=== PATIENT | male | born 1970 | race Caucasian/White ===

== ENCOUNTER 2016-03-16 07:47 | Emergency (ER) | payer BC ==
[2016-03-16] MEDS ORDERED: SODIUM CHLORIDE 0.9% 1,000 ML IV STA (08:20)
[2016-03-16] MEDS ORDERED: ONDANSETRON 4 MG/2 ML VIAL IVP STA (08:20)
[2016-03-16] MEDS ORDERED: HYDROmorphone 1 MG/ML 1 ML SYRINGE IVP STA ×3 (08:20→10:40)
--- NOTE | 2016-03-16 08:25 | ED ---
General Adult HPI - General Chief complaint: Abdominal Pain Stated complaint: kidney stone Time Seen by Provider: 03/16/16 08:18 Source: patient, RN notes reviewed Mode of arrival: ambulatory Limitations: no limitations - History of Present Illness Initial comments: Patient 45-year-old male with significant past mental history for kidney stone, who presents emergency room today with a chief complaint of increased right- sided flank pain that began approximately 3 AM. Patient does admit that symptoms are consistent with kidney stones that is had in the past. Patient does admit to some dysuria type symptoms. He denies any other complaints associated symptoms. Patient denies any recent fever, chills, shortness of breath, chest pain, back pain, numbness or tingling, constipation or diarrhea, headaches or visual changes, or any other complaints. - Related Data Home Medications Medication Instructions Recorded Confirmed Levothyroxine Sodium [Synthroid] 224 mcg PO DAILY 10/07/13 03/16/16 Losartan/Hydrochlorothiazide 1 tab PO DAILY 10/07/13 03/16/16 [Losartan-Hctz 100-12.5 mg Tab] Amoxic-Pot Clav 875-125Mg 1 tab PO Q12HR 03/16/16 03/16/16 [Augmentin 875-125] Hydrocodone/Acetaminophen [[place] 1 tab PO BID PRN 03/16/16 03/16/16 5-325] Previous Rx's Medication Instructions Recorded Hydrocodone/Acetaminophen [[place] 1 each PO Q6HR PRN #20 tab 03/16/16 5-325] Ondansetron Odt [Zofran ODT] 4 mg PO Q8HR PRN #15 tab 03/16/16 Tamsulosin [Flomax] 0.4 mg PO DAILY #3 cap 03/16/16 Allergies Allergy/AdvReac Type Severity Reaction Status Date / Time No Known Allergies Allergy Verified 03/16/16 08:36 Review of Systems ROS Statement: Those systems with pertinent positive or pertinent negative responses have been documented in the HPI. ROS Other: All systems not noted in ROS Statement are negative. Past Medical History Past Medical History: Hypertension, Thyroid Disorder Additional Past Medical History / Comment(s): kidney stones History of Any Multi-Drug Resistant Organisms: None Reported Past Surgical History: Appendectomy Additional Past Surgical History / Comment(s): cyst removal. spur off left foot Past Psychological History: No Psychological Hx Reported Smoking Status: Never smoker Past Alcohol Use History: Occasional Past Drug Use History: None Reported General Exam - General Exam Comments Initial Comments: General: The patient is awake and alert, mild distress. Eye: Pupils are equal, round and reactive to light, extra-ocular movements are intact. No nystagmus. There is normal conjunctiva bilaterally. No signs of icterus. Ears, nose, mouth and throat: There are moist mucous membranes and no oral lesions. Neck: The neck is supple, there is no tenderness or JVD. Cardiovascular: There is a regular rate and rhythm. No murmur, rub or gallop is appreciated. Respiratory: Lungs are clear to auscultation, respirations are non-labored, breath sounds are equal. No wheezes, stridor, rales, or rhonchi. Gastrointestinal: Soft, non-distended, non-tender abdomen without masses or organomegaly noted. There is no rebound or guarding present. No CVA tenderness. Bowel sounds are unremarkable. Musculoskeletal: Normal ROM, no tenderness. Strength 5/5. Sensation intact. Pulses equal bilaterally 2+. Neurological: A&O x 3. CN II-XII intact, There are no obvious motor or sensory deficits. Coordination appears grossly intact. Speech is normal. Skin: Skin is warm and dry and no rashes or lesions are noted. Psychiatric: Cooperative, appropriate mood & affect, normal judgment. Limitations: no limitations Course Vital Signs 03/16/16 03/16/16 08:01 10:14 Temperature 97.4 F L Pulse Rate 62 66 Respiratory 20 18 Rate Blood Pressure 189/94 125/59 O2 Sat by Pulse 96 95 Oximetry Medical Decision Making - Medical Decision Making Patient reexamined at this time shows no signs of distress. States he is feeling better after pain medication given here in the emergency room. Patient' s labs have been reviewed. Patient x-ray shows possible kidney stone on right lower pelvis. Nephrolithiasis he left. Patient's symptoms are consistent with kidney stones that is had in the past. He denies any changes. Urinalysis reviewedon infection. Was discussed about options of CT the abdomen. Patient agreement at this time as he feels that he does not want the radiation exposure and feels comfortable being discharged home. Patient will be discharged home on Flomax, pain medication. Advised to follow-up the family doctor and urologist. Advised return if any symptoms increase or worsen. Patient and family member at bedside state understanding and are in agreement with this plan. - Lab Data Result diagrams: 03/16/16 08:40 03/16/16 08:40 Lab Results 03/16/16 03/16/16 03/16/16 Range/Units 08:40 08:40 09:40 WBC 11.8 H (3.8-10.6) k/uL RBC 5.16 (4.30-5.90) m/uL Hgb 15.2 (13.0-17.5) gm/dL Hct 46.9 (39.0-53.0) % MCV 91.0 (80.0-100.0) fL MCH 29.4 (25.0-35.0) pg MCHC 32.3 (31.0-37.0) g/dL RDW 13.2 (11.5-15.5) % Plt Count 272 (150-450) k/uL Neutrophils % 81 % Lymphocytes % 11 % Monocytes % 5 % Eosinophils % 1 % Basophils % 1 % Neutrophils # 9.5 H (1.3-7.7) k/uL Lymphocytes # 1.4 (1.0-4.8) k/uL Monocytes # 0.6 (0-1.0) k/uL Eosinophils # 0.2 (0-0.7) k/uL Basophils # 0.1 (0-0.2) k/uL Sodium 144 (137-145) mmol/L Potassium 4.7 (3.5-5.1) mmol/L Chloride 106 (98-107) mmol/L Carbon Dioxide 22 (22-30) mmol/L Anion Gap 16 mmol/L BUN 20 (9-20) mg/dL Creatinine 0.90 (0.66-1.25) mg/dL Est GFR (MDRD) Af Amer >60 (>60 ml/min/1.73 sqM) Est GFR (MDRD) Non-Af >60 (>60 ml/min/1.73 sqM) Glucose 151 H (74-99) mg/dL Calcium 10.3 H (8.4-10.2) mg/dL Total Bilirubin 0.4 (0.2-1.3) mg/dL AST 32 (17-59) U/L ALT 52 (21-72) U/L Alkaline Phosphatase 55 (38-126) U/L Total Protein 7.6 (6.3-8.2) g/dL Albumin 4.6 (3.5-5.0) g/dL Amylase 72 (30-110) U/L Lipase 72 (23-300) U/L Urine Color Yellow Urine Appearance Clear (Clear) Urine pH 5.5 (5.0-8.0) Ur Specific [place] 1.024 (1.001-1.035) Urine Protein 2+ H (Negative) Urine Glucose (UA) Negative (Negative) Urine Ketones Negative (Negative) Urine Blood Trace H (Negative) Urine Nitrate Negative (Negative) Urine Bilirubin Negative (Negative) Urine Urobilinogen <2.0 (<2.0) mg/dL Ur Leukocyte Esterase Negative (Negative) Urine RBC 14 H (0-5) /hpf Urine WBC 1 (0-5) /hpf Ur Squamous Epith Cells <1 (0-4) /hpf Urine Bacteria Rare H (None) /hpf Hyaline Casts 1 (0-2) /lpf Urine Mucus Rare H (None) /hpf Disposition Clinical Impression: Kidney stone Disposition: HOME SELF-CARE Condition: Good Instructions: Kidney Stones (ED) Additional Instructions: Please use medication as discussed. Please follow-up with family doctor or urologist in the next 2 days of symptoms have not improved. Please return to emergency room if the symptoms increase or worsen or for any other concerns. Prescriptions: Hydrocodone/Acetaminophen [[place] 5-325] 1 each PO Q6HR PRN #20 tab PRN Reason: Pain Ondansetron Odt [Zofran ODT] 4 mg PO Q8HR PRN #15 tab PRN Reason: Nausea Tamsulosin [Flomax] 0.4 mg PO DAILY #3 cap Referrals: Clemente Melendrez DO [Primary Care Provider] - 1-2 days Dany Crabtree MD [STAFF PHYSICIAN] - 1-2 days Time of Disposition: 10:48
[2016-03-16 08:53] LABS: Basophils # (A) 0.1 k/uL (0-0.2); Basophils % (A) 1 %; CH 30.6; CHCM 33.8; Eosinophils # (A) 0.2 k/uL (0-0.7); Eosinophils % (A) 1 %; HCT 46.9 % (39.0-53.0); HDW 2.62; HGB 15.2 gm/dL (13.0-17.5); Luc # (Auto) 0.17; Luc % (Auto) 1; Lymphocytes # (A) 1.4 k/uL (1.0-4.8); Lymphocytes % (A) 11 %; MCH 29.4 pg (25.0-35.0); MCHC 32.3 g/dL (31.0-37.0); Mean Platelet Volume 7.2; Monocytes # (A) 0.6 k/uL (0-1.0); Monocytes % (A) 5 %; Neutrophils # (A) 9.5 k/uL (1.3-7.7); Neutrophils % (A) 81 %; RBC 5.16 m/uL (4.30-5.90); RDW 13.2 % (11.5-15.5); WBC 11.8 k/uL (3.8-10.6); WBC (Perox) 11.81
[2016-03-16 09:03] LABS: ALT 52 U/L (21-72); AST 32 U/L (17-59); Alkaline Phosphatase 55 U/L (38-126); Amylase 72 U/L (30-110); Anion Gap 16 mmol/L; Blood Urea Nitrogen 20 mg/dL (9-20); Calcium 10.3 mg/dL (8.4-10.2); Carbon Dioxide 22 mmol/L (22-30); Chloride 106 mmol/L (98-107); Glucose 151 mg/dL (74-99); Non-African American GFR(MDRD) >60 (>60 ml/min/1.73 sqM); Potassium 4.7 mmol/L (3.5-5.1); Sodium 144 mmol/L (137-145); Total Bilirubin 0.4 mg/dL (0.2-1.3); Total Protein 7.6 g/dL (6.3-8.2)
--- NOTE | 2016-03-16 09:03 | XR ---
EXAMINATION TYPE: XR KUB DATE OF EXAM: 03/16/2016 8:51 AM COMPARISON: 10/07/2013 HISTORY: 45-year-old male abdominal pain, lower back and right-sided groin pain. FINDINGS: Nonobstructive bowel gas pattern. No evidence for free intraperitoneal air. There is mild stool especially in the right hemicolon. Sagittal 3 mm density seen in the left mid abdomen. A 4 mm calcific density in the right hemipelvis i s unchanged from 2013 compatible with a phlebolith. IMPRESSION: 1. No evidence for bowel obstruction or free air. Mild overall stool burden. 2. Suspect left-sided nephrolithiasis with a density measuring 3 mm.
[2016-03-16 10:13] LABS: Appearance,Urine Clear (Clear); Bacteria,Urine Rare /hpf; Bilirubin,Urine Negative (Negative); Glucose,Urine (UA) Negative (Negative); Ketones,Urine Negative (Negative); Leukocyte Esterase,Urine Negative (Negative); Mucus,Urine Rare /hpf; Nitrite,Urine Negative (Negative); PH, Urine 5.5 (5.0-8.0); Particle Count 4276; Protein,Urine 2+ (Negative); RBC,Urine 14 /hpf (0-5); Specific Gravity,Urine 1.024 (1.001-1.035); Squamous Epithelial Cell,Urine <1 /hpf (0-4); UA Billing (MACRO vs. MICRO) MICRO; Urobilinogen,Urine <2.0 mg/dL (<2.0); WBC,Urine 1 /hpf (0-5)
[2016-03-16 10:15] VITALS: RESP 18
[2016-03-16 11:08] VITALS: BP 134/87; PULSE 88; TEMP 97.9
== END 2016-03-16 11:07 | disposition home or self-care (01) ==
LOC: EC 07:47
DX: N20.0 Calculus of kidney (principal); Z87.442 Personal history of urinary calculi; Z79.899 Other long term (current) drug therapy; I10 Essential (primary) hypertension; E07.9 Disorder of thyroid, unspecified
CPT/HCPCS: 36415; 80053; 82150; 83690; 85025; 81001; 74000; 96374; 96375; 96376 ×2; 96361; 99284; J2405; J1170

== ENCOUNTER 2016-05-10 07:28 | Emergency (ER) | payer BC ==
[2016-05-10] MEDS ORDERED: HYDROmorphone 1 MG/ML 1 ML SYRINGE IVP STA ×2 (08:35→09:33)
[2016-05-10] MEDS ORDERED: ONDANSETRON 4 MG/2 ML VIAL IVP STA (08:35)
[2016-05-10] MEDS ORDERED: SODIUM CHLORIDE 0.9% 1,000 ML IV STA (08:35)
[2016-05-10 09:12] LABS: ALT 38 U/L (21-72); AST 24 U/L (17-59); Alkaline Phosphatase 66 U/L (38-126); Amylase 56 U/L (30-110); Anion Gap 13 mmol/L; Blood Urea Nitrogen 18 mg/dL (9-20); Calcium 10.3 mg/dL (8.4-10.2); Carbon Dioxide 25 mmol/L (22-30); Chloride 105 mmol/L (98-107); Glucose 144 mg/dL (74-99); Non-African American GFR(MDRD) >60 (>60 ml/min/1.73 sqM); Potassium 4.3 mmol/L (3.5-5.1); Sodium 143 mmol/L (137-145); Total Bilirubin 0.5 mg/dL (0.2-1.3); Total Protein 7.2 g/dL (6.3-8.2)
--- NOTE | 2016-05-10 09:13 | XR ---
EXAMINATION TYPE: XR KUB DATE OF EXAM: 05/10/2016 9:03 AM COMPARISON: 03/16/2016 INDICATION: Abdomen pain TECHNIQUE: Single view abdomen upright FINDINGS: There is a normal bowel gas pattern. Psoas margins are normal. No organomegaly is present. IMPRESSION: 1. Unremarkable Abdomen
[2016-05-10 09:19] LABS: Basophils % (A) 0 %; CH 30.9; Eosinophils # (A) 0.1 k/uL (0-0.7); Eosinophils % (A) 1 %; HCT 45.6 % (39.0-53.0); HDW 2.62; HGB 14.8 gm/dL (13.0-17.5); Luc # (Auto) 0.24; Luc % (Auto) 2; Lymphocytes # (A) 1.2 k/uL (1.0-4.8); Lymphocytes % (A) 9 %; MCH 29.7 pg (25.0-35.0); MCHC 32.5 g/dL (31.0-37.0); MCV 91.4 fL (80.0-100.0); Mean Platelet Volume 6.5; Monocytes # (A) 0.6 k/uL (0-1.0); Monocytes % (A) 5 %; Neutrophils # (A) 10.7 k/uL (1.3-7.7); Neutrophils % (A) 83 %; RBC 4.98 m/uL (4.30-5.90); RDW 13.3 % (11.5-15.5); WBC (Perox) 13.35
[2016-05-10 09:28] LABS: Appearance,Urine Clear (Clear); Bilirubin,Urine Negative (Negative); Calcium Oxalate Crystals,Urine Occasional /hpf; Glucose,Urine (UA) Negative (Negative); Ketones,Urine Negative (Negative); Leukocyte Esterase,Urine Negative (Negative); Mucus,Urine Rare /hpf; Nitrite,Urine Negative (Negative); PH, Urine 5.5 (5.0-8.0); Particle Count 2355; Protein,Urine 1+ (Negative); RBC,Urine 22 /hpf (0-5); Specific Gravity,Urine 1.022 (1.001-1.035); UA Billing (MACRO vs. MICRO) MICRO; Urobilinogen,Urine <2.0 mg/dL (<2.0); WBC,Urine 2 /hpf (0-5)
--- NOTE | 2016-05-10 09:29 | ED ---
Abdominal Pain HPI - General Chief Complaint: Abdominal Pain Stated Complaint: POSS KIDNEY STONE Time Seen by Provider: 05/10/16 08:29 Source: patient, RN notes reviewed Mode of arrival: ambulatory Limitations: no limitations - History of Present Illness Initial Comments: 45-year-old male presents emergency Department chief complaint left flank pain. Patient states his symptoms started earlier this morning. Patient has a history kidney stones and states pain seems very similar. Patient states he tries with asthma states that he has very little output. Patient states the pain radiates from his left lower quadrant his left flank and back region. Patient denies fever, chills. Patient has nausea no vomiting. Patient data Lortab which did help some of his symptoms. Patient denies any diarrhea or constipation. Patient offers no other complaints. - Related Data Home Medications Medication Instructions Recorded Confirmed Levothyroxine Sodium [Synthroid] 224 mcg PO DAILY@1200 10/07/13 05/10/16 Losartan/Hydrochlorothiazide 1 tab PO DAILY@1200 10/07/13 05/10/16 [Losartan-Hctz 100-12.5 mg Tab] Hydrocodone/Acetaminophen [[place] 1 tab PO BID PRN 03/16/16 05/10/16 5-325] Multivitamin [Men's Multi-Vitamin] 1 tab PO DAILY@1200 05/10/16 05/10/16 Previous Rx's Medication Instructions Recorded Hydrocodone/Acetaminophen [[place] 1 tab PO Q6HR PRN #15 tab 05/10/16 5-325] Allergies Allergy/AdvReac Type Severity Reaction Status Date / Time celery Allergy Unknown Verified 05/10/16 08:17 diphenhydramine Allergy Unknown Verified 05/10/16 08:17 [From Benadryl] NSAIDS (Non-Steroidal Allergy Unknown Verified 05/10/16 08:17 Anti-Inflamma peanut Allergy Unknown Verified 05/10/16 08:17 tomato Allergy Unknown Verified 05/10/16 08:17 Review of Systems ROS Statement: Those systems with pertinent positive or pertinent negative responses have been documented in the HPI. ROS Other: All systems not noted in ROS Statement are negative. Past Medical History Past Medical History: Hypertension, Thyroid Disorder Additional Past Medical History / Comment(s): kidney stones History of Any Multi-Drug Resistant Organisms: None Reported Past Surgical History: Appendectomy Additional Past Surgical History / Comment(s): cyst removal. spur off left foot Past Psychological History: No Psychological Hx Reported Smoking Status: Never smoker Past Alcohol Use History: Occasional Past Drug Use History: None Reported General Exam Limitations: no limitations General appearance: alert, in no apparent distress Head exam: Present: atraumatic, normocephalic, normal inspection Eye exam: Present: normal appearance, PERRL, EOMI. Absent: scleral icterus, conjunctival injection, periorbital swelling Respiratory exam: Present: normal lung sounds bilaterally. Absent: respiratory distress, wheezes, rales, rhonchi, stridor Cardiovascular Exam: Present: regular rate, normal rhythm, normal heart sounds. Absent: systolic murmur, diastolic murmur, rubs, gallop, clicks GI/Abdominal exam: Present: soft, tenderness (Minimal left lower quadrant, minimal change in patient's pain with palpation), normal bowel sounds. Absent: distended, guarding, rebound, rigid Back exam: Present: CVA tenderness (L). Absent: CVA tenderness (R) Neurological exam: Present: alert, oriented X3, CN II-XII intact Course Vital Signs 05/10/16 07:50 Temperature 99.2 F Pulse Rate 83 Respiratory 20 Rate Blood Pressure 190/103 O2 Sat by Pulse 97 Oximetry Medical Decision Making - Medical Decision Making 45-year-old male presented for left flank pain. Patient has known kidney stones. Patient's pain consistent with kidney stones and he has hematuria. Patient we discharged with pain medication and follow-up with urologist as needed. Return parameters were discussed. - Lab Data Result diagrams: 05/10/16 08:45 05/10/16 08:45 Lab Results 05/10/16 05/10/16 05/10/16 Range/Units 08:20 08:45 08:45 WBC 13.0 H (3.8-10.6) k/uL RBC 4.98 (4.30-5.90) m/uL Hgb 14.8 (13.0-17.5) gm/dL Hct 45.6 (39.0-53.0) % MCV 91.4 (80.0-100.0) fL MCH 29.7 (25.0-35.0) pg MCHC 32.5 (31.0-37.0) g/dL RDW 13.3 (11.5-15.5) % Plt Count 241 (150-450) k/uL Neutrophils % 83 % Lymphocytes % 9 % Monocytes % 5 % Eosinophils % 1 % Basophils % 0 % Neutrophils # 10.7 H (1.3-7.7) k/uL Lymphocytes # 1.2 (1.0-4.8) k/uL Monocytes # 0.6 (0-1.0) k/uL Eosinophils # 0.1 (0-0.7) k/uL Basophils # 0.0 (0-0.2) k/uL Sodium 143 (137-145) mmol/L Potassium 4.3 (3.5-5.1) mmol/L Chloride 105 (98-107) mmol/L Carbon Dioxide 25 (22-30) mmol/L Anion Gap 13 mmol/L BUN 18 (9-20) mg/dL Creatinine 0.95 (0.66-1.25) mg/dL Est GFR (MDRD) Af Amer >60 (>60 ml/min/1.73 sqM) Est GFR (MDRD) Non-Af >60 (>60 ml/min/1.73 sqM) Glucose 144 H (74-99) mg/dL Calcium 10.3 H (8.4-10.2) mg/dL Total Bilirubin 0.5 (0.2-1.3) mg/dL AST 24 (17-59) U/L ALT 38 (21-72) U/L Alkaline Phosphatase 66 (38-126) U/L Total Protein 7.2 (6.3-8.2) g/dL Albumin 4.2 (3.5-5.0) g/dL Amylase 56 (30-110) U/L Lipase 74 (23-300) U/L Urine Color Yellow Urine Appearance Clear (Clear) Urine pH 5.5 (5.0-8.0) Ur Specific [place] 1.022 (1.001-1.035) Urine Protein 1+ H (Negative) Urine Glucose (UA) Negative (Negative) Urine Ketones Negative (Negative) Urine Blood Small H (Negative) Urine Nitrate Negative (Negative) Urine Bilirubin Negative (Negative) Urine Urobilinogen <2.0 (<2.0) mg/dL Ur Leukocyte Esterase Negative (Negative) Urine RBC 22 H (0-5) /hpf Urine WBC 2 (0-5) /hpf Calcium Oxalate Crystal Occasional H (None) /hpf Urine Mucus Rare H (None) /hpf Disposition Clinical Impression: Renal colic on left side, Nephrolithiasis Disposition: HOME SELF-CARE Condition: Stable Instructions: Kidney Stones (ED) Additional Instructions: Please return to the Emergency Department if symptoms worsen or any other concerns. Prescriptions: Hydrocodone/Acetaminophen [[place] 5-325] 1 tab PO Q6HR PRN #15 tab PRN Reason: Pain Time of Disposition: 09:35
[2016-05-10 09:54] VITALS: BP 159/74; PULSE 74; RESP 18; TEMP 97.9
== END 2016-05-10 10:00 | disposition home or self-care (01) ==
LOC: EC 07:28
DX: N20.0 Calculus of kidney (principal); I10 Essential (primary) hypertension; E07.9 Disorder of thyroid, unspecified; Z79.52 Long term (current) use of systemic steroids; Z79.899 Other long term (current) drug therapy; Z88.6 Allergy status to analgesic agent; Z88.8 Allergy status to other drugs, medicaments and biological substances; Z91.010 Allergy to peanuts; Z91.018 Allergy to other foods; Z90.49 Acquired absence of other specified parts of digestive tract
CPT/HCPCS: 99284 ×2; 96374 ×2; 96376 ×2; 96375 ×2; 96361 ×2; 36415; 80053; 82150; 83690; 85025; 81001; 87086; 74000; J2405; J1170

== ENCOUNTER → 2019-01-31 | Outpatient (CLI) | payer BC ==
[2019-01-31 09:31] LABS: Basophils % (A) 1 %; Eosinophils # (A) 0.2 k/uL (0-0.7); Eosinophils % (A) 3 %; HCT 46.8 % (39.0-53.0); HGB 15.9 gm/dL (13.0-17.5); Lymphocytes # (A) 1.8 k/uL (1.0-4.8); Lymphocytes % (A) 23 %; MCHC 33.9 g/dL (31.0-37.0); MCV 91.6 fL (80.0-100.0); Mean Platelet Volume 5.7; Monocytes # (A) 0.4 k/uL (0-1.0); Monocytes % (A) 5 %; Neutrophils # (A) 5.1 k/uL (1.3-7.7); Neutrophils % (A) 67 %; Platelet Count 235 k/uL (150-450); RBC 5.12 m/uL (4.30-5.90); RDW 12.9 % (11.5-15.5); WBC 7.6 k/uL (3.8-10.6)
[2019-01-31 17:14] LABS: African American GFR (CKD) 129.3 (60.0-200.0); Albumin 4.6 g/dL (3.80-4.90); Albumin/Globulin Ratio 2.09 (1.60-3.17); Anion Gap 7.9 mmol/L (4.00-12.00); BUN/Creat Ratio 25.71 Ratio (12.00-20.00); Calcium 9.7 mg/dL (8.7-10.3); Carbon Dioxide 27.1 mmol/L (21.6-31.8); Chol/HDL Ratio 4.17; Globulin 2.2 g/dL (1.6-3.3); LDL Cholesterol,Calculated 114.6 mg/dL (0.0-131.0); Non-African American GFR(CKD) 111.6 (60.0-200.0); Potassium 4.1 mmol/L (3.5-5.5); Total Bilirubin 0.5 mg/dL (0.2-1.2); Total Protein 6.8 g/dL (6.2-8.2); Uric Acid 6.8 mg/dL (3.7-8.7); VLDL Calculation 31.4 mg/dL (5.00-40.00)
== END | disposition home or self-care (01) ==
LOC: LABWHC1 08:51
PROVIDERS: ATTEND Family Medicine
DX: I10 Essential (primary) hypertension (principal); E78.2 Mixed hyperlipidemia; E03.9 Hypothyroidism, unspecified; M1A.00X0 Idiopathic chronic gout, unspecified site, without tophus (tophi); M54.5 Low back pain; E55.9 Vitamin D deficiency, unspecified; R73.01 Impaired fasting glucose; Z87.892 Personal history of anaphylaxis
CPT/HCPCS: 36415; 80053; 80061; 82306; 84439; 84443; 84550; 85025

== ENCOUNTER → 2019-03-10 | Outpatient (CLI) | payer BC ==
--- NOTE | 2019-03-10 13:30 | XR ---
EXAMINATION TYPE: XR cervical spine comp DATE OF EXAM: 03/10/2019 COMPARISON: None HISTORY: Cervicalgia TECHNIQUE: Five-view cervical spine FINDINGS: Prevertebral space is normal. Disc heights are preserved. Vertebral body heights are preser andrew. Foramen are patent. There is some limitation in the oblique view with under rotation. IMPRESSION: 1. No suspicious cervical spine changes.
--- NOTE | 2019-03-10 13:31 | XR ---
EXAMINATION TYPE: XR thoracic spine complete DATE OF EXAM: 03/10/2019 COMPARISON: 06/21/2015 HISTORY: Thoracic pain TECHNIQUE: Three-view thoracic spine FINDINGS: Spondylosis is present. There are 12 thoracic type vertebral bodies. Pedicles are intact. T here is disc space narrowing present. Vertebral body heights are preserved. IMPRESSION: 1. Mild to moderate degenerative changes through the thoracic spine, somewhat progressive from the c omparison of 2016.
== END | disposition home or self-care (01) ==
LOC: RADXRYALE 09:40
PROVIDERS: ATTEND Family Medicine
DX: M54.2 Cervicalgia (principal); M47.814 Spondylosis without myelopathy or radiculopathy, thoracic region
CPT/HCPCS: 72050; 72072

== ENCOUNTER → 2019-03-13 | Outpatient (CLI) | payer BC ==
--- NOTE | 2019-03-13 15:52 | XR ---
EXAMINATION TYPE: XR lumbosacral spine min 4V DATE OF EXAM: 03/13/2019 COMPARISON: 06/21/2015 HISTORY: Low back pain degenerative disc changes TECHNIQUE: Five-view lumbar spine FINDINGS: There 5 lumbar-type vertebral bodies. Pedicles are intact. Disc heights are preserved. Vert ebral body heights are preserved. Mild diffuse facet changes are present throughout the lumbar spine. This may be slightly greater at L4-5 and L5-S1. Sacroiliac joint degenerative changes may be present . IMPRESSION: 1. Degenerative joint changes at the facets and sacroiliac joints.
== END | disposition home or self-care (01) ==
LOC: RADXRYALE 15:24
PROVIDERS: ATTEND Family Medicine
DX: M54.5 Low back pain (principal); M51.36 Other intervertebral disc degeneration, lumbar region
CPT/HCPCS: 72110

== ENCOUNTER → 2020-02-08 | Outpatient (CLI) | payer BC ==
--- NOTE | 2020-02-08 10:22 | XR ---
EXAMINATION TYPE: XR lumbosacral spine 5 views DATE OF EXAM: 02/08/2020 Comparison: 03/13/2019 Clinical History: 49-year-old male [id number], [id number] LBP, DDD Findings: Advanced hypertrophic facet arthropathy mid to lower lumbar spine. There is trace grade 1 anterolisth esis at L4-L5. Very mild endplate spondylosis is unchanged. Some anterior endplate spondylosis partia lly visualized lower thoracic spine. Vertebral body heights are maintained. Suspect projection artifa ct at the left L5 pars region on the oblique view as the lucency extends beyond the margins of the mayela ne. 5 lumbar type vertebral bodies. Impression: Advanced hypertrophic facet arthropathy mid to lower lumbar spine with stable trace grade 1 anterolis thesis at L4-L5. Mild scattered endplate spondylosis. No vertebral compression collapse.
== END | disposition home or self-care (01) ==
LOC: RADXRYALE 08:44
PROVIDERS: ATTEND Family Medicine
DX: M43.16 Spondylolisthesis, lumbar region (principal); M47.816 Spondylosis without myelopathy or radiculopathy, lumbar region
CPT/HCPCS: 72110

== ENCOUNTER → 2021-03-06 | Outpatient (CLI) | payer BC | END | disposition home or self-care (01) | LOC: LABWHC1 11:19 | PROVIDERS: ATTEND Podiatrist Foot & Ankle Surgery | DX: Z53.9 Procedure and treatment not carried out, unspecified reason (principal) ==

== ENCOUNTER 2023-07-19 14:34 | Emergency (ER) | payer BC ==
--- NOTE | 2023-07-19 15:26 | ED ---
Abdominal Pain HPI - General Chief Complaint: Urogenital Stated Complaint: back pain, abd pain Time Seen by Provider: 07/19/23 15:17 Source: patient, RN notes reviewed, old records reviewed Mode of arrival: ambulatory Limitations: no limitations - History of Present Illness Initial Comments: This is a 52-year-old male to ER for evaluation of severe back pain flank pain left-sided flank pain rating to the groin with history of kidney stones. Persistent kidney stone pain here in the emergency department with nausea no vomiting no chills no sick contacts no dysuria no fevers. No history of abdominal surgery MD Complaint: abdominal pain, flank pain (Sided) -: days(s) Location: LLQ, suprapubic, L flank Radiation: L flank Migration to: LLQ Severity: severe Severity scale (1-10): 9 Quality: stabbing Consistency: constant Worsens With: nothing Context: other (0) Associated Symptoms: nausea Treatments Prior to Arrival: other (0) - Related Data Home Medications Medication Instructions Recorded Confirmed Levothyroxine Sodium [Synthroid] 224 mcg PO DAILY@1200 10/07/13 05/10/16 Losartan/Hydrochlorothiazide 1 tab PO DAILY@1200 10/07/13 05/10/16 [Losartan-Hctz 100-12.5 mg Tab] Hydrocodone/Acetaminophen [Felt 1 tab PO BID PRN 03/16/16 05/10/16 5-325] Multivitamin [Men's Multi-Vitamin] 1 tab PO DAILY@1200 05/10/16 05/10/16 Previous Rx's Medication Instructions Recorded Hydrocodone/Acetaminophen [Felt 1 tab PO Q6HR PRN #15 tab 05/10/16 5-325] Tamsulosin [Flomax] 0.4 mg PO DAILY #7 cap 05/10/16 Amoxic-Pot Clav 875-125Mg 1 tab PO Q12HR #14 tablet 07/19/23 [Augmentin 875-125] Allergies Allergy/AdvReac Type Severity Reaction Status Date / Time celery Allergy Unknown Verified 07/19/23 15:01 diphenhydramine Allergy Unknown Verified 07/19/23 15:01 [From Benadryl] NSAIDS (Non-Steroidal Allergy Unknown Verified 07/19/23 15:01 Anti-Inflamma peanut Allergy Unknown Verified 07/19/23 15:01 tomato Allergy Unknown Verified 07/19/23 15:01 Review of Systems ROS Statement: Those systems with pertinent positive or pertinent negative responses have been documented in the HPI. ROS Other: All systems not noted in ROS Statement are negative. Past Medical History Past Medical History: Hypertension, Thyroid Disorder Additional Past Medical History / Comment(s): kidney stones History of Any Multi-Drug Resistant Organisms: None Reported Past Surgical History: Appendectomy Additional Past Surgical History / Comment(s): cyst removal. spur off left foot Past Psychological History: No Psychological Hx Reported Smoking Status: Never smoker Past Alcohol Use History: Rare Past Drug Use History: None Reported General Exam Limitations: no limitations General appearance: alert, in no apparent distress Head exam: Present: atraumatic, normocephalic, normal inspection Eye exam: Present: normal appearance, PERRL, EOMI. Absent: scleral icterus, conjunctival injection, periorbital swelling ENT exam: Present: normal exam, mucous membranes moist Neck exam: Present: normal inspection. Absent: tenderness, meningismus, lymphadenopathy Respiratory exam: Present: normal lung sounds bilaterally. Absent: respiratory distress, wheezes, rales, rhonchi, stridor Cardiovascular Exam: Present: regular rate, normal rhythm, normal heart sounds. Absent: systolic murmur, diastolic murmur, rubs, gallop, clicks GI/Abdominal exam: Present: soft, normal bowel sounds. Absent: distended, tenderness, guarding, rebound, rigid Extremities exam: Present: normal inspection, full ROM, normal capillary refill. Absent: tenderness, pedal edema, joint swelling, calf tenderness Back exam: Present: normal inspection Neurological exam: Present: alert, oriented X3, CN II-XII intact Psychiatric exam: Present: normal affect, normal mood Skin exam: Present: warm, dry, intact, normal color. Absent: rash Course Vital Signs 07/19/23 07/19/23 07/19/23 14:57 16:58 18:25 Temperature 99.6 F 98 F Pulse Rate 110 H 115 H 106 H Respiratory 18 16 16 Rate Blood Pressure 166/99 130/91 128/89 O2 Sat by Pulse 96 95 95 Oximetry - Reevaluation(s) Reevaluation #1: Medical records reviewed Reevaluation #2: Patient symptoms unchanged Reevaluation #3: Informed of results questions answered Reevaluation #4: Was pt. sent in by a medical professional or institution (DARRYN So, SUGAR CANE PLANTER MACHINE OPERATOR, urgent care, hospital, or group home...) When possible be specific @ -no Did you speak to anyone other than the patient for history (EMS, parent, family, police, friend...)? What history was obtained from this source @ -no Did you review nursing and triage notes (agree or disagree)? Why? @ -agree Are old charts reviewed (outside hosp., previous admission, EMS record, old EKG, old radiological studies, urgent care reports/EKG's, group home records)? Report findings @ -yes Differential Diagnosis (chest pain, altered mental status, abdominal pain women, abdominal pain men, vaginal bleeding, weakness, fever, dyspnea, syncope, headache, dizziness, GI bleed, back pain, seizure, CVA, palpatations, mental health, musculoskeletal)? @ -prior EKG interpreted by me (3pts min.). @ -no X-rays interpreted by me (1pt min.). @ -no CT interpreted by me (1pt min.). @ -yes negative for acute disease U/S interpreted by me (1pt. min.). @ -no What testing was considered but not performed or refused? (CT, X-rays, U/S, labs)? Why? @ -none What meds were considered but not given or refused? Why? @ -none Did you discuss the management of the patient with other professionals (professionals i.e. DARRYN So, SUGAR CANE PLANTER MACHINE OPERATOR, lab, RT, psych nurse, social services coordinator, cattle knocker, teacher, surveillance dual rate officer, mattress spring encaser)? Give summary @ -no Was smoking cessation discussed for >3mins.? @ -no Was critical care preformed (if so, how long)? @ -no Were there social determinants of health that impacted care today? How? (Homelessness, low income, unemployed, alcoholism, drug addiction, transportation, low edu. Level, literacy, decrease access to med. care, shelter, rehab)? @ -none Was there de-escalation of care discussed even if they declined (Discuss DNR or withdrawal of care, Hospice)? DNR status @ -no What co-morbidities impacted this encounter? (DM, HTN, Smoking, COPD, CAD, Cancer, CVA, ARF, Chemo, Hep., AIDS, mental health diagnosis, sleep apnea, morbid obesity)? @ -none Was patient admitted / discharged? Hospital course, mention meds given and route, prescriptions, significant lab abnormalities, going to OR and other pertinent info. @ - 52 male to ER for evaluation of severe abdominal pain. No cause of abdominal pain here in the ER patient symptoms are improved he can be discharged home Discharge Undiagnosed new problem with uncertain prognosis? @ -no Drug Therapy requiring intensive monitoring for toxicity (Heparin, Nitro, Insulin, Cardizem)? @ -no Were any procedures done? @ -no Diagnosis/symptom? @ -Abdominal pain NOS Acute, or Chronic, or Acute on Chronic? @ -Acute Uncomplicated (without systemic symptoms) or Complicated (systemic symptoms)? @ -Complicated Side effects of treatment? @ -no Exacerbation, Progression, or Severe Exacerbation? @ -exacerbation Poses a threat to life or bodily function? How? (Chest pain, USA, SC, pneumonia, PE, COPD, DKA, ARF, appy, cholecystitis, CVA, Diverticulitis, Homicidal, Suicidal, threat to staff... and all critical care pts) @ -no Reevaluation #5: Differential Abdominal Pain Men: Appendicitis, cholecystitis, diverticulosis, ischemic bowel, pancreatitis, hepatitis, UTI, gastroenteritis, AAA, incarcerated hernia, bowel obstruction, constipation, inflammatory bowel, hepatitis, peptic ulcer disease, splenic infarction, perforated viscus, testicular torsion, this is not meant to be an all-inclusive list Medical Decision Making - Medical Decision Making 52 male to ER for evaluation of severe abdominal pain. No cause of abdominal pain here in the ER patient symptoms are improved he can be discharged home - Lab Data Result diagrams: 07/19/23 16:28 07/19/23 16:28 Lab Results 07/19/23 07/19/23 07/19/23 Range/Units 16:28 16:28 16:59 WBC 10.5 (3.8-10.6) k/uL RBC 5.02 (4.30-5.90) m/uL Hgb 15.1 (13.0-17.5) gm/dL Hct 46.0 (39.0-53.0) % MCV 91.7 (80.0-100.0) fL MCH 30.1 (25.0-35.0) pg MCHC 32.9 (31.0-37.0) g/dL RDW 13.5 (11.5-15.5) % Plt Count 287 (150-450) k/uL MPV 6.9 Neutrophils % 76 % Lymphocytes % 17 % Monocytes % 4 % Eosinophils % 1 % Basophils % 0 % Neutrophils # 8.0 H (1.3-7.7) k/uL Lymphocytes # 1.8 (1.0-4.8) k/uL Monocytes # 0.4 (0-1.0) k/uL Eosinophils # 0.1 (0-0.7) k/uL Basophils # 0.0 (0-0.2) k/uL Sodium 137 (137-145) mmol/L Potassium 4.2 (3.5-5.1) mmol/L Chloride 105 (98-107) mmol/L Carbon Dioxide 25 (22-30) mmol/L Anion Gap 7 mmol/L BUN 13 (9-20) mg/dL Creatinine 0.81 (0.66-1.25) mg/dL Est GFR (CKD-EPI)AfAm >90 (>60 ml/min/1.73 sqM) Est GFR (CKD-EPI)NonAf >90 (>60 ml/min/1.73 sqM) Glucose 117 H (74-99) mg/dL Calcium 9.6 (8.4-10.2) mg/dL Total Bilirubin 0.6 (0.2-1.3) mg/dL AST 21 (17-59) U/L ALT 19 (4-49) U/L Alkaline Phosphatase 71 (38-126) U/L Total Protein 7.6 (6.3-8.2) g/dL Albumin 4.5 (3.5-5.0) g/dL Amylase 66 (30-110) U/L Lipase 66 (23-300) U/L Urine Color Colorless Urine Appearance Clear (Clear) Urine pH 5.5 (5.0-8.0) Ur Specific [place] 1.012 (1.001-1.035) Urine Protein Trace H (Negative) Urine Glucose (UA) Negative (Negative) Urine Ketones Negative (Negative) Urine Blood Moderate H (Negative) Urine Nitrite Negative (Negative) Urine Bilirubin Negative (Negative) Urine Urobilinogen <2.0 (<2.0) mg/dL Ur Leukocyte Esterase Large H (Negative) Urine RBC 34 H (0-5) /hpf Urine WBC 86 H (0-5) /hpf Urine Bacteria Rare H (None) /hpf Urine Mucus Rare H (None) /hpf - Radiology Data Radiology results: report reviewed (CT abdomen pelvis is negative for acute dise ase), image reviewed Disposition Clinical Impression: UTI (urinary tract infection), Kidney stones Disposition: HOME SELF-CARE Condition: Good Instructions (If sedation given, give patient instructions): Kidney Stones (ED), Urinary Tract Infection in Men (ED) Prescriptions: Amoxic-Pot Clav 875-125Mg [Augmentin 875-125] 1 tab PO Q12HR #14 tablet Is patient prescribed a controlled substance at d/c from ED?: No Referrals: Clemente Melendrez DO [Primary Care Provider] - 1-2 days Aba Peck MD [STAFF PHYSICIAN] - 1-2 days Time of Disposition: 17:55
[2023-07-19] MEDS: SODIUM CHLORIDE 0.9% 1,000 ML IV STA (16:28)
[2023-07-19] MEDS: ONDANSETRON 4 MG/2 ML VIAL IVP STA (16:29)
[2023-07-19 16:38] LABS: Basophils % (A) 0 %; Eosinophils # (A) 0.1 k/uL (0-0.7); Eosinophils % (A) 1 %; HGB 15.1 gm/dL (13.0-17.5); Lymphocytes # (A) 1.8 k/uL (1.0-4.8); Lymphocytes % (A) 17 %; MCH 30.1 pg (25.0-35.0); MCHC 32.9 g/dL (31.0-37.0); MCV 91.7 fL (80.0-100.0); Mean Platelet Volume 6.9; Monocytes # (A) 0.4 k/uL (0-1.0); Monocytes % (A) 4 %; Neutrophils % (A) 76 %; Platelet Count 287 k/uL (150-450); RBC 5.02 m/uL (4.30-5.90); RDW 13.5 % (11.5-15.5); WBC 10.5 k/uL (3.8-10.6)
[2023-07-19] MEDS: HYDROmorphone 1 MG/ML 1 ML SYRINGE IVP STA (16:50)
[2023-07-19 16:58] LABS: ALT 19 U/L (4-49); AST 21 U/L (17-59); African American GFR (CKD) >90 (>60 ml/min/1.73 sqM); Albumin 4.5 g/dL (3.5-5.0); Alkaline Phosphatase 71 U/L (38-126); Amylase 66 U/L (30-110); Anion Gap 7 mmol/L; Blood Urea Nitrogen 13 mg/dL (9-20); Calcium 9.6 mg/dL (8.4-10.2); Carbon Dioxide 25 mmol/L (22-30); Chloride 105 mmol/L (98-107); Glucose 117 mg/dL (74-99); Lipase 66 U/L (23-300); Non-African American GFR(CKD) >90 (>60 ml/min/1.73 sqM); Potassium 4.2 mmol/L (3.5-5.1); Sodium 137 mmol/L (137-145); Total Bilirubin 0.6 mg/dL (0.2-1.3); Total Protein 7.6 g/dL (6.3-8.2)
--- NOTE | 2023-07-19 17:25 | CT ---
EXAMINATION TYPE: CT abdomen pelvis wo con CT DLP: 2042 mGycm, Automated exposure control for dose reduction was used. DATE OF EXAM: 07/19/2023 4:46 PM COMPARISON: 05/25/2012 CLINICAL INDICATION:Male, 52 years old with history of abdominal pain; Flank pain. Hx of renal stones . TECHNIQUE: Axial CT abdomen pelvis wo con;Sagittal and coronal reformats were created on a separate workstation. Contrast used: mL of , (none if empty) Oral contrast used: without Oral Contrast (none if empty) FINDINGS: LOWER CHEST: Unremarkable ABDOMEN LIVER: Diffusely hypoattenuating parenchyma. GALLBLADDER AND BILE DUCTS: Unremarkable. PANCREAS: Unremarkable. SPLEEN: Unremarkable. ADRENAL GLANDS: Unremarkable. KIDNEYS AND URETERS: Nonobstructing calculi bilaterally measuring up to 8 mm in the right and 4 mm on the left. No evidence for obstructive uropathy. PELVIS BLADDER: Unremarkable REPRODUCTIVE: Unremarkable. ABDOMEN & PELVIS STOMACH AND BOWEL: No evidence of bowel obstruction. PERITONEUM/RETROPERITONEUM: No evidence of pneumoperitoneum or free fluid. VASCULATURE: No evidence of aortic aneurysm. MUSCULOSKELETAL: No acute osseous abnormalities, grade 1 anterolisthesis of L4 and L5. LYMPH NODES: No gross evidence for lymphadenopathy. SOFT TISSUE/ABDOMINAL WALL: Fat-containing umbilical hernia. IMPRESSION: 1. Bilateral renal stones without evidence for obstructive uropathy. 2. Grade 1 anterolisthesis of L4 and L5. 3. Fat-containing umbilical hernia. 4. Hepatic steatosis.
[2023-07-19 17:27] LABS: Appearance,Urine Clear (Clear); Bacteria,Urine Rare /hpf; Bilirubin,Urine Negative (Negative); Blood,Urine Moderate (Negative); Color,Urine Colorless; Glucose,Urine (UA) Negative (Negative); Ketones,Urine Negative (Negative); Leukocyte Esterase,Urine Large (Negative); Mucus,Urine Rare /hpf; Nitrite,Urine Negative (Negative); PH, Urine 5.5 (5.0-8.0); Protein,Urine Trace (Negative); RBC,Urine 34 /hpf (0-5); Specific Gravity,Urine 1.012 (1.001-1.035); Urobilinogen,Urine <2.0 mg/dL (<2.0); WBC,Urine 86 /hpf (0-5)
[2023-07-19 17:43] VITALS: RESP 16
[2023-07-19] MEDS: traMADol 50 MG STARTER PACK 3 TAB BTL PO STA (18:17)
[2023-07-19] MEDS: cefTRIAXone IN SWFI 1,000 MG/10 ML SYRINGE IVP STA (18:17)
[2023-07-19] MEDS: traMADol 50 MG TAB PO STA (18:17)
[2023-07-19] MEDS: AMOXIC-POT CLAV 875MG STARTER PACK 2 TAB BTL PO STA (18:17)
[2023-07-19] MEDS: TAMSULOSIN 0.4 MG CAP.ER.24H PO STA (18:18)
[2023-07-19 18:31] VITALS: BP 128/89; PULSE 106; TEMP 98
== END 2023-07-19 18:26 | disposition home or self-care (01) ==
LOC: EC 14:34
DX: N39.0 Urinary tract infection, site not specified (principal); N20.0 Calculus of kidney; Z91.018 Allergy to other foods; Z88.8 Allergy status to other drugs, medicaments and biological substances; Z91.010 Allergy to peanuts
CPT/HCPCS: 36415; 80053; 82150; 83690; 85025; 81001; 74176; 99284; 96374; 96375 ×2; 96361 ×2; J2405; J0696; J1170

== ENCOUNTER 2023-08-09 12:49 | Inpatient (IN) | payer BC ==
--- NOTE | 2023-08-09 13:27 | ED ---
General Adult HPI - General Chief complaint: Back Pain/Injury Stated complaint: Back Pain Time Seen by Provider: 08/09/23 12:53 Source: patient, EMS, RN notes reviewed, old records reviewed Mode of arrival: EMS - History of Present Illness Initial comments: 52-year-old male presenting with low back pain. Patient has history of chronic low back pain and left-sided sciatica. He does follow with his primary care provider who has prescribed steroids, Petal, and Valium. States he helped his son with his motorcycle yesterday and bent down worsening his pain. Denies fever. Denies bowel or bladder issues. - Related Data Home Medications Medication Instructions Recorded Confirmed Celecoxib 200 mg PO BID 08/09/23 08/09/23 Cyclobenzaprine HCl 10 mg PO HS 08/09/23 08/09/23 Etodolac [Lodine] 400 mg PO BID PRN 08/09/23 08/09/23 HYDROcodone/APAP 7.5-325MG [Petal 1 tab PO TID 08/09/23 08/09/23 7.5-325] Levothyroxine Sodium [Synthroid] 125 mcg PO DAILY 08/09/23 08/09/23 Losartan Potassium [Cozaar] 100 mg PO DAILY 08/09/23 08/09/23 Pramipexole [Mirapex] 0.25 mg PO HS 08/09/23 08/09/23 Rosuvastatin Calcium 5 mg PO DAILY 08/09/23 08/09/23 Semaglutide [Rybelsus] 7 mg PO DAILY 08/09/23 08/09/23 Tamsulosin [Flomax] 0.8 mg PO DAILY 08/09/23 08/09/23 diazePAM [Valium] 5 mg PO Q8H 08/09/23 08/09/23 hydroCHLOROthiazide [Hydrodiuril] 25 mg PO DAILY 08/09/23 08/09/23 predniSONE 10 mg PO DAILY PRN 08/09/23 08/09/23 Allergies Allergy/AdvReac Type Severity Reaction Status Date / Time celery Allergy Unknown Verified 08/09/23 13:38 diphenhydramine Allergy Unknown Verified 08/09/23 13:38 [From Benadryl] NSAIDS (Non-Steroidal Allergy Unknown Verified 08/09/23 13:38 Anti-Inflamma peanut Allergy Unknown Verified 08/09/23 13:38 tomato Allergy Unknown Verified 08/09/23 13:38 Review of Systems ROS Statement: Those systems with pertinent positive or pertinent negative responses have been documented in the HPI. ROS Other: All systems not noted in ROS Statement are negative. Past Medical History Past Medical History: Hypertension, Thyroid Disorder Additional Past Medical History / Comment(s): kidney stones History of Any Multi-Drug Resistant Organisms: None Reported Past Surgical History: Appendectomy Additional Past Surgical History / Comment(s): cyst removal. spur off left foot Past Psychological History: No Psychological Hx Reported Smoking Status: Never smoker Past Alcohol Use History: Rare Past Drug Use History: None Reported General Exam General appearance: alert, in no apparent distress, in distress Head exam: Present: atraumatic, normocephalic Eye exam: Present: normal appearance, PERRL Respiratory exam: Present: normal lung sounds bilaterally. Absent: respiratory distress, wheezes Cardiovascular Exam: Present: regular rate, normal rhythm GI/Abdominal exam: Present: soft. Absent: distended, tenderness Extremities exam: Present: normal capillary refill Neurological exam: Present: alert, oriented X3, CN II-XII intact. Absent: motor sensory deficit Skin exam: Present: warm, dry, intact. Absent: cyanosis, diaphoretic Course Vital Signs 08/09/23 08/09/23 08/09/23 12:52 15:02 17:51 Temperature 99 F Pulse Rate 99 101 H 100 Respiratory 18 18 18 Rate Blood Pressure 146/93 149/95 139/95 O2 Sat by Pulse 98 98 97 Oximetry Medical Decision Making - Medical Decision Making Was pt. sent in by a medical professional or institution (, PA, PARKING METER COLLECTOR, urgent care, hospital, or fpc...) When possible be specific @ -No Did you speak to anyone other than the patient for history (EMS, parent, family, police, friend...)? What history was obtained from this source @ -No Did you review nursing and triage notes (agree or disagree)? Why? @ -I reviewed and agree with nursing and triage notes Were old charts reviewed (outside hosp., previous admission, EMS record, old EKG, old radiological studies, urgent care reports/EKG's, fpc records)? Report findings @ -No old charts were reviewed Differential musculoskeletal EKG interpreted by me (3pts min.). @ -As above X-rays interpreted by me (1pt min.). @ -None done CT interpreted by me (1pt min.). @ -The abdomen pelvis negative for acute process, CT lumbar spine showing degenerative change, bulging discs with spinal stenosis and possible fracture at T12. U/S interpreted by me (1pt. min.). @ -None done What testing was considered but not performed or refused? (CT, X-rays, U/S, labs)? Why? @ -None What meds were considered but not given or refused? Why? @ -None Did you discuss the management of the patient with other professionals (professionals i.e. , PA, PARKING METER COLLECTOR, lab, RT, psych nurse, nursing home social worker, streetcar motorman, teacher, grants officer, special education case manager)? Give summary @ [facility] physician group, will admit with orthopedics on consult. Was smoking cessation discussed for >3mins.? @ -No Was critical care preformed (if so, how long)? @ -No Were there social determinants of health that impacted care today? How? (Homelessness, low income, unemployed, alcoholism, drug addiction, transportati on, low edu. Level, literacy, decrease access to med. care, intermediate, rehab)? @ -No Was there de-escalation of care discussed even if they declined (Discuss DNR or withdrawal of care, Hospice)? DNR status @ -No What co-morbidities impacted this encounter? (DM, HTN, Smoking, COPD, CAD, Cancer, CVA, ARF, Chemo, Hep., AIDS, mental health diagnosis, sleep apnea, morbid obesity)? @Low back pain Was patient admitted / discharged? Hospital course, mention meds given and route, prescriptions, significant lab abnormalities, going to OR and other pertinent info. @ -[52-year-old male with acute on chronic low back pain. Patient has received patient Petal, steroids, muscle relaxers without improvement and then this acutely worsened yesterday with an episode where the patient was bending over. He requires 10 mg of IV morphine given by paramedics and repetitive doses of pain medication in the emergency department to control his pain. CT imaging is performed which is does show multiple bulging disks as well as spinal stenosis and possible fracture at T12. Patient given pain medication and Decadron in the emergency department. Additionally he has a significantly elevated white blood cell count at 31 which is predominantly neutrophils. He is afebrile and has no other infectious complaints. This level will be repeated as well as blood cultures pending. Orthopedics placed on consult. Undiagnosed new problem with uncertain prognosis? @ -No Drug Therapy requiring intensive monitoring for toxicity (Heparin, Nitro, Insulin, Cardizem)? @ -No Were any procedures done? @ -No Diagnosis/symptom? @ -Acute on chronic low back pain, spinal stenosis, bulging disc, leukocytosis Acute, or Chronic, or Acute on Chronic? @ -Acute on chronic Uncomplicated (without systemic symptoms) or Complicated (systemic symptoms)? @ -Default Side effects of treatment? @ -No Exacerbation, Progression, or Severe Exacerbation? @ -No Poses a threat to life or bodily function? How? (Chest pain, USA, MD, pneumonia, PE, COPD, DKA, ARF, appy, cholecystitis, CVA, Diverticulitis, Homicidal, Suicidal, threat to staff... and all critical care pts) @yes, infection, sepsis - Lab Data Result diagrams: 08/09/23 13:32 08/09/23 13:32 Lab Results 08/09/23 08/09/23 08/09/23 Range/Units 13:32 13:32 16:43 WBC 31.4 H (3.8-10.6) k/uL RBC 4.96 (4.30-5.90) m/uL Hgb 14.6 (13.0-17.5) gm/dL Hct 45.5 (39.0-53.0) % MCV 91.9 (80.0-100.0) fL MCH 29.4 (25.0-35.0) pg MCHC 32.0 (31.0-37.0) g/dL RDW 14.1 (11.5-15.5) % Plt Count 241 (150-450) k/uL MPV 7.4 Neutrophils % (Manual) 89 % Band Neuts % (Manual) 4 % Lymphocytes % (Manual) 1 % Monocytes % (Manual) 7 % Neutrophils # (Manual) 29.20 H (1.3-7.7) k/uL Lymphocytes # (Manual) 0.31 L (1.0-4.8) k/uL Monocytes # (Manual) 2.20 H (0-1.0) k/uL Nucleated RBCs 0 (0-0) /100 WBC Manual Slide Review Performed RBC Morphology Normal Sodium 133 L (137-145) mmol/L Potassium 4.3 (3.5-5.1) mmol/L Chloride 104 (98-107) mmol/L Carbon Dioxide 22 (22-30) mmol/L Anion Gap 7 mmol/L BUN 19 (9-20) mg/dL Creatinine 0.67 (0.66-1.25) mg/dL Est GFR (CKD-EPI)AfAm >90 (>60 ml/min/1.73 sqM) Est GFR (CKD-EPI)NonAf >90 (>60 ml/min/1.73 sqM) Glucose 198 H (74-99) mg/dL Plasma Lactic Acid Jameson 2.0 (0.7-2.0) mmol/L Calcium 9.6 (8.4-10.2) mg/dL Total Bilirubin 1.3 (0.2-1.3) mg/dL AST 17 (17-59) U/L ALT 16 (4-49) U/L Alkaline Phosphatase 61 (38-126) U/L Total Protein 6.5 (6.3-8.2) g/dL Albumin 4.0 (3.5-5.0) g/dL Disposition Clinical Impression: Stenosis, spinal, lumbar, Leukocytosis, Acute exacerbation of chronic low back pain Disposition: ADMITTED IP TO THIS HOSP Condition: Stable Is patient prescribed a controlled substance at d/c from ED?: No Referrals: Clemente Melendrez DO [Primary Care Provider] - 1-2 days Time of Disposition: 18:07
[2023-08-09] MEDS: DEXAMETHASONE SOD PHOSPHATE 10 MG/ML 1 ML VIAL IV STA (13:34)
[2023-08-09] MEDS: HYDROmorphone 0.5 MG/0.5 ML SYRINGE IVP STA (13:34)
[2023-08-09 13:59] LABS: ALT 16 U/L (4-49); AST 17 U/L (17-59); African American GFR (CKD) >90 (>60 ml/min/1.73 sqM); Alkaline Phosphatase 61 U/L (38-126); Anion Gap 7 mmol/L; Blood Urea Nitrogen 19 mg/dL (9-20); Calcium 9.6 mg/dL (8.4-10.2); Carbon Dioxide 22 mmol/L (22-30); Chloride 104 mmol/L (98-107); Glucose 198 mg/dL (74-99); Non-African American GFR(CKD) >90 (>60 ml/min/1.73 sqM); Potassium 4.3 mmol/L (3.5-5.1); Sodium 133 mmol/L (137-145); Total Bilirubin 1.3 mg/dL (0.2-1.3); Total Protein 6.5 g/dL (6.3-8.2)
[2023-08-09 14:07] LABS: HCT 45.5 % (39.0-53.0); HGB 14.6 gm/dL (13.0-17.5); MCH 29.4 pg (25.0-35.0); MCV 91.9 fL (80.0-100.0); Mean Platelet Volume 7.4; Platelet Count 241 k/uL (150-450); RBC 4.96 m/uL (4.30-5.90); RDW 14.1 % (11.5-15.5); WBC 31.4 k/uL (3.8-10.6)
[2023-08-09] MEDS: HYDROmorphone 1 MG/ML 1 ML SYRINGE IVP STA (14:35)
[2023-08-09 14:37] LABS: Band Neutrophils % 4 %; Lymphocytes # (M) 0.31 k/uL (1.0-4.8); Neutrophils % (M) 89 %; Nucleated Red Blood Cells 0 /100 WBC (0-0); RBC Morphology Normal; Total Cells Counted 200
--- NOTE | 2023-08-09 17:06 | CT ---
EXAMINATION TYPE: CT abdomen pelvis w con, CT lumbar spine w con CT DLP: 3611.4 combined total mGycm, Automated exposure control for dose reduction was used. DATE OF EXAM: 08/09/2023 4:35 PM COMPARISON: 07/19/2023 CLINICAL INDICATION:Male, 52 years old with history of back pain; low back pain (accession [id number]), sharp low back pain. pt has known fx and herniated discs. (accession [id number]) TECHNIQUE: Axial CT abdomen pelvis w con, CT lumbar spine w con;Sagittal and coronal reformats were created on a separate workstation. Axial imaging of the lumbar spine with sagittal coronal reformats. Contrast used:100ml mL of Isovue 300 with IV Contrast, (none if empty) Oral contrast used: without Oral Contrast (none if empty) FINDINGS: LOWER CHEST: Unremarkable ABDOMEN LIVER: Diffusely hypoattenuating parenchyma. GALLBLADDER AND BILE DUCTS: Unremarkable. PANCREAS: Unremarkable. SPLEEN: Unremarkable. ADRENAL GLANDS: Unremarkable. KIDNEYS AND URETERS: Prominent bilateral renal collecting systems with bilateral cortical cysts. Nono bstructing calculus on the right measuring up to 6 mm and on the left measuring up to 3 mm. PELVIS BLADDER: Bladder. REPRODUCTIVE: Unremarkable. ABDOMEN & PELVIS STOMACH AND BOWEL: No evidence of bowel obstruction. PERITONEUM/RETROPERITONEUM: No evidence of pneumoperitoneum or free fluid. VASCULATURE: No evidence of aortic aneurysm. MUSCULOSKELETAL: Altered level degeneration changes of the visualized spine with osteophyte formation disc space narro wing and facet joint arthropathy. There is moderate to severe bilateral neural foraminal stenosis at L4-L5 moderate bilateral L5-S1, mild to moderate L3-L4, L2-L3 and L1-L2. Disc bulge at L4-L5 with mod erate spinal canal stenosis. Disc bulge L3-L4 with severe spinal canal stenosis. Disc bulging L2-L3 w ith possible central disc protrusion. Abnormal inferior endplate with loss of cortex of the T12 infer ior endplate. Mild anterior face L4 and L5. LYMPH NODES: No gross evidence for lymphadenopathy. SOFT TISSUE/ABDOMINAL WALL: Umbilical hernia. IMPRESSION: Abdomen and pelvis: * No evidence for acute abdominal process. * Urinary bladder with prominent renal collecting systems likely due to overdistention of the bladde r. * Bilateral nonobstructing renal calculi. * Simple appearing renal cysts bilaterally. * Fat-containing umbilical hernia. * Hepatic steatosis. Lumbar: * No evidence for spinal fracture. T12 inferior endplate loss of cortex possibly representing Schmor l's node. Further evaluation with MRI recommended with IV contrast. Fracture could be considered in t he differential. * Disc bulge L3-L4 with severe spinal canal stenosis. * Disc bulging L2-L3 with possible central disc protrusion. * Moderate degeneration changes throughout the spine.
[2023-08-09] MEDS ORDERED: NALOXONE 0.4 MG/ML 1 ML VIAL IV PRN (18:00)
[2023-08-09 18:11] LABS: Appearance,Urine Clear (Clear); Bilirubin,Urine 1+ (Negative); Blood,Urine Negative (Negative); Color,Urine Colorless; Glucose,Urine (UA) Negative (Negative); Ketones,Urine Negative (Negative); Leukocyte Esterase,Urine Negative (Negative); Mucus,Urine Rare /hpf; Nitrite,Urine Negative (Negative); PH, Urine 6.5 (5.0-8.0); Protein,Urine 1+ (Negative); Specific Gravity,Urine 1.015 (1.001-1.035); Urobilinogen,Urine <2.0 mg/dL (<2.0); WBC,Urine 1 /hpf (0-5)
[2023-08-09] MEDS: SODIUM CHLORIDE 0.9% 1,000 ML IV SCH (18:50)
[2023-08-09] MEDS: HYDROmorphone 1 MG/ML 1 ML SYRINGE IVP PRN (19:10)
[2023-08-09 21:56] LABS: Glucose,Whole Blood 207 mg/dL (70-110)
--- NOTE | 2023-08-10 01:40 | P.HPIM ---
History of Present Illness H&P Date: 08/09/23 Patient is a 52-year-old male with a PMH of ankylosing spondylitis with chronic lower back pain, type II DM, hypertension, hypothyroidism, hyperlipidemia, and BPH who presents to the emergency room with complaints of lower back pain. Patient notes that yesterday evening he was outside with his son when he bent down to tie his shoelaces and as he was standing up, he felt a sudden ache in his lower back. He immediately began experiencing 10 out of 10 lower back pain with radiation down into the left hip. He reports a previous history of mild sciatica but never to this extent. Denies experiencing weakness, numbness, or tingling of the legs. Notes that the pain has not improved to a 5 out of 10 at the time of interview but is worsened significantly with movement. He denied experiencing urinary complaints or bowel incontinence. Denied experiencing fever, chills, chest pain, shortness of breath, nausea, vomiting. CT abdomen and pelvis in the emergency room revealed a T12 inferior endplate loss of cortex concerning for possible fracture with severe spinal canal stenosis and degenerative disc diseases. There was also evidence of hepatic steatosis. Laboratory evaluation was remarkable for leukocytosis of 31.4, sodium 133, glucose 198, lactic acid 2.0, with UA positive for 1+ bilirubin and 1+ protein. ED documentation reviewed and case discussed with ED provider. Review of systems: Pertinent positives and negatives as discussed in HPI, a complete review of systems was performed and all other systems are negative. Physical examination: Vital signs reviewed General: non toxic, no distress, appears at stated age, morbidly obese Derm: no unusual rashes/lesions, warm Head: atraumatic, normocephalic, symmetric Eyes: EOMI, no lid lag, anicteric sclera, pupils equal round reactive to light ENT: Nose and ears atraumatic Neck: No cervical lymphadenopathy, trachea midline, supple Mouth: no lip lesion, mucus membranes moist Cardiovascular: S1S2 reg, no murmur, positive dorsalis pedis pulse bilateral, no edema Lungs: CTA bilateral, no rhonchi, no rales, no accessory muscle use Abdominal: soft, nontender to palpation, no guarding Ext: muscle strength 5 out of 5 in all 4 extremities grossly but lower extremity proximal testing limited due to pain, no paresthesias of lower extremity bilaterally, no gross muscle atrophy, no contractures, diffuse lower back tenderness on examination Neuro: CN II-XI grossly intact, no gross focal neuro deficits Psych: Alert, oriented, appropriate affect Assessment: Acute on chronic low back pain in setting of ankylosing spondylitis and possible T12 fracture Leukocytosis, suspect secondary to acute pain and stressor with no signs of active infection at this time Chronic conditions: Type II DM, hypertension, hyperlipidemia, hypothyroidism Imaging: CT abdomen and pelvis in the emergency room revealed a T12 inferior endplate lo ss of cortex concerning for possible fracture with severe spinal canal stenosis and degenerative disc diseases. There was also evidence of hepatic steatosis. Data Review: Laboratory evaluation was remarkable for leukocytosis of 31.4, sodium 133, glucose 198, lactic acid 2.0, with UA positive for 1+ bilirubin and 1+ protein. Plan: Patient received Decadron 10 mg IV in the emergency room Continue with pain control Strict bedrest Fall precautions Orthospine consulted Continue with IV fluid normal saline 75 cc/h Insulin sliding scale blood glucose monitoring Resume home medications DVT prophylaxis: Lovenox subcu The patient is admitted with an anticipated less than 2 midnight stay for roel luation of LBP CODE STATUS: Full Code Discussed with: Patient Anticipated discharge place: Home Past Medical History Past Medical History: Diabetes Mellitus, Hypertension, Thyroid Disorder Additional Past Medical History / Comment(s): kidney stones. pre diabetic History of Any Multi-Drug Resistant Organisms: None Reported Past Surgical History: Appendectomy Additional Past Surgical History / Comment(s): cyst removal. spur off left foot and right foot Past Psychological History: No Psychological Hx Reported Smoking Status: Never smoker Past Alcohol Use History: Rare Past Drug Use History: None Reported Medications and Allergies Home Medications Medication Instructions Recorded Confirmed Type Celecoxib 200 mg PO BID 08/09/23 08/09/23 History Cyclobenzaprine HCl 10 mg PO HS 08/09/23 08/09/23 History Etodolac [Lodine] 400 mg PO BID PRN 08/09/23 08/09/23 History HYDROcodone/APAP 7.5-325MG [[place] 1 tab PO TID 08/09/23 08/09/23 History 7.5-325] Levothyroxine Sodium [Synthroid] 125 mcg PO DAILY 08/09/23 08/09/23 History Losartan Potassium [Cozaar] 100 mg PO DAILY 08/09/23 08/09/23 History Pramipexole [Mirapex] 0.25 mg PO HS 08/09/23 08/09/23 History Rosuvastatin Calcium 5 mg PO DAILY 08/09/23 08/09/23 History Semaglutide [Rybelsus] 7 mg PO DAILY 08/09/23 08/09/23 History Tamsulosin [Flomax] 0.8 mg PO DAILY 08/09/23 08/09/23 History diazePAM [Valium] 5 mg PO Q8H 08/09/23 08/09/23 History hydroCHLOROthiazide [Hydrodiuril] 25 mg PO DAILY 08/09/23 08/09/23 History predniSONE 10 mg PO DAILY PRN 08/09/23 08/09/23 History Allergies Allergy/AdvReac Type Severity Reaction Status Date / Time celery Allergy Unknown Verified 08/09/23 13:38 diphenhydramine Allergy Unknown Verified 08/09/23 13:38 [From Benadryl] NSAIDS (Non-Steroidal Allergy Unknown Verified 08/09/23 13:38 Anti-Inflamma peanut Allergy Unknown Verified 08/09/23 13:38 tomato Allergy Unknown Verified 08/09/23 13:38 Physical Exam Vitals: Vital Signs Temp Pulse Pulse Resp BP BP Pulse Ox 08/09/23 21:00 98.2 F 92 18 133/85 94 L 08/09/23 20:57 97.8 F 96 18 133/72 95 08/09/23 17:51 100 18 139/95 97 08/09/23 15:02 101 H 18 149/95 98 08/09/23 12:52 99 F 99 18 146/93 98 Intake and Output 08/09/23 08/09/23 08/10/23 14:59 22:59 06:59 Output Total 0 Balance 0 Output: Urine 0 Other: Weight 147.418 kg 147.418 kg Results CBC & Chem 7: 08/09/23 13:32 08/09/23 13:32 Labs: Abnormal Lab Results - Last 24 Hours (Table) 08/09/23 08/09/23 08/09/23 Range/Units 13:32 13:32 16:43 WBC 31.4 H (3.8-10.6) k/uL Neutrophils # (Manual) 29.20 H (1.3-7.7) k/uL Lymphocytes # (Manual) 0.31 L (1.0-4.8) k/uL Monocytes # (Manual) 2.20 H (0-1.0) k/uL Sodium 133 L (137-145) mmol/L Glucose 198 H (74-99) mg/dL POC Glucose (mg/dL) (70-110) mg/dL Urine Protein 1+ H (Negative) Urine Bilirubin 1+ H (Negative) Urine Mucus Rare H (None) /hpf 08/09/23 Range/Units 21:53 WBC (3.8-10.6) k/uL Neutrophils # (Manual) (1.3-7.7) k/uL Lymphocytes # (Manual) (1.0-4.8) k/uL Monocytes # (Manual) (0-1.0) k/uL Sodium (137-145) mmol/L Glucose (74-99) mg/dL POC Glucose (mg/dL) 207 H (70-110) mg/dL Urine Protein (Negative) Urine Bilirubin (Negative) Urine Mucus (None) /hpf Thrombosis Risk Factor Assmnt - Choose All That Apply Any of the Below Risk Factors Present?: Yes Each Factor Represents 1 point: Age 41-60 years Other Risk Factors: No Thrombosis Risk Factor Assessment Total Risk Factor Score: 1 Thrombosis Risk Factor Assessment Level: Low Risk
[2023-08-10 05:58] LABS: Glucose,Whole Blood 167 mg/dL (70-110)
[2023-08-10] MEDS: INSULIN ASPART (NovoLOG) 100 UNIT/ML VIAL SQ SCH (06:01)
[2023-08-10] MEDS: ENOXAPARIN 40 MG/0.4 ML SYRINGE SQ SCH (08:28)
[2023-08-10 10:09] LABS: HCT 41.9 % (39.6-50.0); HGB 13.2 g/dL (13.0-17.0); MCH 29.7 pg (27.0-32.0); MCHC 31.5 g/dL (32.0-37.0); MCV 94.4 FL (80.0-97.0); Mean Platelet Volume 9.5 FL (9.5-12.2); NRBC Per 100 WBC 0 X 10*3/uL (0.00-0.01); Platelet Count 235 X 10*3/uL (140-440); RBC 4.44 X 10*6/uL (4.40-5.60); RDW 14.4 % (11.5-14.5); WBC 23.46 X 10*3/uL (4.50-10.00)
[2023-08-10 10:21] LABS: ALT 11 U/L (10-49); AST 10 U/L (14-35); Albumin 3.8 g/dL (3.8-4.9); Albumin/Globulin Ratio 1.58 Ratio (1.60-3.17); Alkaline Phosphatase 51 U/L (41-126); BUN/Creat Ratio 25.67 Ratio (12.00-20.00); Blood Urea Nitrogen 15.4 mg/dL (9.0-27.0); Calcium 8.9 mg/dL (8.7-10.3); Carbon Dioxide 22.3 mmol/L (21.6-31.8); Chloride 100 mmol/L (96-109); Globulin 2.4 g/dL (1.6-3.3); Glucose 140 mg/dL (70-110); Potassium 4.3 mmol/L (3.5-5.5); Sodium 136 mmol/L (135-145); Total Bilirubin 0.6 mg/dL (0.3-1.2); Total Protein 6.2 g/dL (6.2-8.2)
--- NOTE | 2023-08-10 10:37 | P.CNOR ---
History of Present Illness - [facility] Consult date: 08/10/23 Requesting physician: Heriberto Trujillo Consult reason: low back pain History of present illness: History of Presenting Illness Patient is a pleasant 52-year-old male who presented to the ER via EMS for intractable low back pain. Patient states he was outside helping his son working on his motorcycle, patient had bent down to tie his shoe and had immediate intense low back pain. Patient states he was able to stand with support from EMS staff and ambulate to emergency vehicle. Patient does report chronic low back pain that has been ongoing for 15 years and progressing over the past 2 years. Patient has been following with Dr. Reid. He states that he has trialed conservative treatments such as physical therapy, pain medication, and steroids. Patient would like to continue with a consult with our services for second opinion. In addition to his low back pain patient does report that it radiates to the left hip and into the left knee associated with intermittent numbness and tingling. Patient does live at home with his family and is indepen dent with no assisted devices. Patient denies any perineal numbness/tingling or loss of bowel/bladder. Patient does have a past medical history of diabetes, hypertension, and thyroid disorder. Patient states that he does have a orthopedic history of bilateral heel spurs and chronic low back pain. Review of Systems Pertinent positives and negatives as discussed in HPI, a complete review of systems was performed and all other systems are negative. Physical Examination General: The patient is awake and alert, in no acute distress Skin: Skin is warm and dry with no obvious rashes or lesions. Eye: Pupils are equal, round and reactive to light, extra-ocular movements are intact; there is normal conjunctiva bilaterally. Neck: The neck is supple, there is no tenderness and ROM intact. Gastrointestinal: Soft, non-distended, non-tender abdomen. Back: There is no tenderness to palpation in the midline, paralumbar, parathoracic or buttocks region. There is no obvious deformity. Musculoskeletal: ROM limited secondary to pain and stiffness. Right: Shoulder abduction 5/5, elbow flexors 5/5, wrist dorsiflexors 5/5. finger abductor 5/5, tennis ball coverer hand 5/5, hip flexor 5/5, knee flexor 5/5, ankle dorsiflexor 5/5, ankle plantarflexion 5/5 and extensor hallucis 5/5. Left: Shoulder abduction 5/5, elbow flexors 5/5, wrist dorsiflexors 5/5. finger abductor 5/5, tennis ball coverer hand 5/5, hip flexor 4-/5, knee flexor 5/5, ankle dorsiflexor 5/5, ankle plantarflexion 5/5 and extensor hallucis 5/5. Neurological: CN 2-12 intact. There are no obvious motor or sensory deficits. Movement and coordination equal and intact. Sensory exam to light touch intact C5-T1 and intact from L2-S1. Reflexes 2/4 in bilateral upper and lower extremities. Negative Hoffmans, babinski, and clonus signs. Psychiatric: Cooperative, appropriate mood & affect, normal judgment. Assessment and Plan Acute on Chronic low back pain Lumbar spondylosis L2-L3 HNP L3-L4 HNP with severe spinal stenosis Left lower extremity radiculopathy Multiple comorbidities CT of the lumbar spine taken on 08/09/2023 demonstrates T12 inferior endplate loss possibly representing a Schmorl's node versus possible fracture. Also demonstrates a L2-L3 central HNP and L3-L4 HNP with severe spinal canal stenosis. At this time we have ordered MRI of the lumbar spine with contrast for further evaluation. 2. Appreciate medical management 3. Pain management -Continue with home medication of [place] 7.5mg. We have in creased his Flexeril to TID, and have ordered Decadron 6mg q6 hrs. 4. GI prophylaxis -senna, miralax 5. DVT prophylaxis - heparin 6. Consult placed for PT/OT - weightbearing as tolerated with a walker as needed. 7. Appreciate consult I reviewed and discussed this case with my attending Dr. Ruffin, whom has reviewed this chart and films and is in agreement with assessment and plan of care as outlined above. I have personally seen and examined the patient, performed the documentation and the assessment and plan as written. Number of minutes spent on the visit: 30m Past Medical History Past Medical History: Diabetes Mellitus, Hypertension, Thyroid Disorder Additional Past Medical History / Comment(s): kidney stones. pre diabetic History of Any Multi-Drug Resistant Organisms: None Reported Past Surgical History: Appendectomy Additional Past Surgical History / Comment(s): cyst removal. spur off left foot and right foot Past Psychological History: No Psychological Hx Reported Smoking Status: Never smoker Past Alcohol Use History: Rare Past Drug Use History: None Reported Medications and Allergies Home Medications Medication Instructions Recorded Confirmed Type Celecoxib 200 mg PO BID 08/09/23 08/09/23 History Cyclobenzaprine HCl 10 mg PO HS 08/09/23 08/09/23 History Etodolac [Lodine] 400 mg PO BID PRN 08/09/23 08/09/23 History HYDROcodone/APAP 7.5-325MG [[place] 1 tab PO TID 08/09/23 08/09/23 History 7.5-325] Levothyroxine Sodium [Synthroid] 125 mcg PO DAILY 08/09/23 08/09/23 History Losartan Potassium [Cozaar] 100 mg PO DAILY 08/09/23 08/09/23 History Pramipexole [Mirapex] 0.25 mg PO HS 08/09/23 08/09/23 History Rosuvastatin Calcium 5 mg PO DAILY 08/09/23 08/09/23 History Semaglutide [Rybelsus] 7 mg PO DAILY 08/09/23 08/09/23 History Tamsulosin [Flomax] 0.8 mg PO DAILY 08/09/23 08/09/23 History diazePAM [Valium] 5 mg PO Q8H 08/09/23 08/09/23 History hydroCHLOROthiazide [Hydrodiuril] 25 mg PO DAILY 08/09/23 08/09/23 History predniSONE 10 mg PO DAILY PRN 08/09/23 08/09/23 History Allergies Allergy/AdvReac Type Severity Reaction Status Date / Time celery Allergy Unknown Verified 08/09/23 13:38 diphenhydramine Allergy Unknown Verified 08/09/23 13:38 [From Benadryl] NSAIDS (Non-Steroidal Allergy Unknown Verified 08/09/23 13:38 Anti-Inflamma peanut Allergy Unknown Verified 08/09/23 13:38 tomato Allergy Unknown Verified 08/09/23 13:38 Results - Labs Labs: Abnormal Lab Results - Last 24 Hours (Table) 08/09/23 08/09/23 08/09/23 Range/Units 13:32 13:32 16:43 WBC 31.4 H (3.8-10.6) k/uL Neutrophils # (Manual) 29.20 H (1.3-7.7) k/uL Lymphocytes # (Manual) 0.31 L (1.0-4.8) k/uL Monocytes # (Manual) 2.20 H (0-1.0) k/uL Sodium 133 L (137-145) mmol/L Glucose 198 H (74-99) mg/dL POC Glucose (mg/dL) (70-110) mg/dL Urine Protein 1+ H (Negative) Urine Bilirubin 1+ H (Negative) Urine Mucus Rare H (None) /hpf 08/09/23 08/10/23 Range/Units 21:53 05:57 WBC (3.8-10.6) k/uL Neutrophils # (Manual) (1.3-7.7) k/uL Lymphocytes # (Manual) (1.0-4.8) k/uL Monocytes # (Manual) (0-1.0) k/uL Sodium (137-145) mmol/L Glucose (74-99) mg/dL POC Glucose (mg/dL) 207 H 167 H (70-110) mg/dL Urine Protein (Negative) Urine Bilirubin (Negative) Urine Mucus (None) /hpf H & H 08/09/23 Range/Units 13:32 Hgb 14.6 (13.0-17.5) gm/dL Hct 45.5 (39.0-53.0) % Result Diagrams: 08/10/23 06:49 08/10/23 06:49
[2023-08-10 11:01] LABS: Basophils # (A) 0.03 X 10*3/uL (0.00-0.10); Basophils % (A) 0.1 %; Eosinophils # (A) 0 X 10*3/uL (0.04-0.35); Eosinophils % (A) 0 %; Lymphocytes # (A) 1.01 X 10*3/uL (0.90-5.00); Lymphocytes % (A) 4.3 %; Monocytes # (A) 1.41 X 10*3/uL (0.20-1.00); Neutrophils # (A) 20.88 X 10*3/uL (1.80-7.70); RBC Morphology Normal (Normal)
[2023-08-10 11:42] LABS: Glucose,Whole Blood 167 mg/dL (70-110)
--- NOTE | 2023-08-10 11:54 | MR ---
EXAMINATION TYPE: MR lumbar spine wo/w con DATE OF EXAM: 08/10/2023 11:29 AM CLINICAL INDICATION:Male, 52 years old with history of Severe LBP, L3-L4 severe stenosis; PHH, Severe LBP, L3-L4 severe stenosis, abnormal CT COMPARISON: 05/25/2012, 08/09/2023. TECHNIQUE: Multi planar, multi sequence imaging was performed utilizing: T1-weighted, T2-weighted, a nd turbo inversion recovery imaging of the lumbar spine. IV Contrast: 15 cc Gadavist. (None if empty) FINDINGS: Alignment: The lumbar vertebral bodies have preserved heights and alignment. Cord: The conus medullaris and the distal spinal cord appear unremarkable with regards to their signa l intensity and morphology. Bones/Discs: Increased inversion recovery signal within the T12 vertebral body. As seen on prior CT. There is postcontrast enhancement around this lesion. Additional edema is seen within the superior en dplate of the L1 vertebral body with mild postcontrast enhancement. Mild enhancement of the facet kylah nts at L3-L4 and L4-L5 to lesser extent. Mild degeneration changes throughout the spine with osteophy te formation and facet joint arthropathy. Intervertebral disc signal is maintained. T12-L1: No evidence of significant spinal canal stenosis or neural foraminal stenosis. L1-L2: No evidence of significant spinal canal stenosis or neural foraminal stenosis. L2-L3: Left subarticular disc protrusion without significant canal stenosis. Zfsq-dd-arbuzdsw neural foraminal stenosis bilaterally. L3-L4: Disc bulge and facet joint arthropathy result in severe spinal canal and moderate bilateral ne ural foraminal stenosis. L4-L5: Disc bulge and facet joint arthropathy result in severe spinal canal and moderate to severe bi lateral neural foraminal stenosis. L5-S1: The disc has a rounded posterior morphology without significant spinal canal stenosis. Facet j oint arthropathy with mild bilateral neural foraminal stenosis. No significant spinal canal or neural foraminal stenosis in the remainder of the visualized levels. Other findings: Right renal high T2 signal cysts and lower T2 signal lesion compatible with height C T scan attenuating cyst. IMPRESSION: 1. Suspected acute Schmorl's node versus fracture of the inferior endplate of T12 with bony edema an d reactive enhancement. There is also edema in the L1 superior endplate, which may be reactive to the T12 fracture/Schmorl's node. 2. Reactive edema at the L3-L4 and L4-L5 facet joints with some mild postcontrast reactive enhanceme nt. Findings likely on a deep generative bases. 3. L3-L4 and L4-L5 severe spinal canal stenosis secondary disc bulging and narrowed thecal sac patricia gilberto with facet joint arthropathy. 4. Disc degeneration changes with moderate to severe bilateral neural foraminal stenosis at L4-L5. 5. L2-L3 Left subarticular disc protrusion without significant canal stenosis. Rqwe-mg-whhkigzf neur al foraminal stenosis bilaterally. 6. Hyperdense cyst seen on prior CT is lower T2 signal. Consider renal mass protocol MRI for complet e characterization if clinically warranted.
[2023-08-10] MEDS: diazePAM 5 MG TAB PO SCH (12:17)
[2023-08-10] MEDS: TAMSULOSIN 0.4 MG CAP.ER.24H PO SCH (12:17)
[2023-08-10] MEDS: hydroCHLOROthiazide 25 MG TAB PO SCH (12:17)
[2023-08-10] MEDS: LEVOTHYROXINE 125 MCG TAB PO SCH (12:17)
[2023-08-10] MEDS: ATORVASTATIN 10 MG TAB PO SCH (12:17)
[2023-08-10] MEDS: LOSARTAN 50 MG TAB PO SCH (12:17)
--- NOTE | 2023-08-10 13:44 | P.PN ---
Subjective Progress Note Date: 08/10/23 Hospital course: Patient is a pleasant 52-year-old male with a past medical history of ankylosing spondylitis with chronic lower back pain, hypertension, hyperlipidemia, hypothyroidism, type II qrj-tbycxyp-zxygierkh diabetes mellitus, and BPH. Patient presented to [facility] on 08/09/2023 with a chief complaint of acute on chronic lower back pain radiating into the left hip. Arrival to our facility, patient underwent evaluation in the emergency department. Vital signs upon arrival show blood pressure 146/93, heart rate 99, respiratory rate 18, temp 99.0 F, and SpO2 of 98% on room air. Labs completed and reviewed. CBC showing leukocytosis with WBC count of 31.4 and BMP showing hyponatremia with sodium of 133 and hyperglycemia with blood glucose of 198. Liver profile was unremarkable. Urinalysis negative for blood or infection. CT lumbar spine showing T12 inferior endplate loss of cortex possibly representing Schmutz node versus fracture, disc bulge at L3-L4 with severe spinal canal stenosis, and disc bulging at L2-L3 with possible central disc protrusion. Patient was admitted under our services with consultation to orthospine surgery team. Physical exam: Patient seen and fully evaluated at bedside. Currently he reports pain is controlled at rest with current pain medication regimen but states unable to stand or walk or lift legs worse on the left secondary to severe pain. Patient reports pain has become so severe he did not even know you could experience pain this badly. He denies having any numbness and denies having any involuntary loss of bowel or bladder. He denies urinary retention. Vital signs reviewed and stable. General: Nontoxic, no distress and appears stated age. Derm: Skin warm and dry, normal coloration for ethnicity. Head: Atraumatic, normocephalic and symmetric. Eyes: EOMs intact, no lid lag, and anicteric sclera Mouth: no lip lesions, mucus membranes moist Cardiovascular: regular rate and rhythm with normal S1S2, no murmur, positive po sterior tibial pulses bilaterally, and cap refill < 2 seconds. Lungs: Respirations even, regular, and unlabored on room air. Lungs CTA bilaterally, no rhonchi, no rales, no wheezing, and no accessory muscle usage. Abdominal: soft, nontender to palpation, no guarding, no appreciable organomegaly Ext: ROM intact. No gross muscle atrophy, no edema, no contractures Neuro: Speech clear, face symmetrical and CN II-XII grossly intact with no noted focal neuro deficits Psych: Alert and oriented to person, place, time, and situation. Appropriate and pleasant affect. Assessment and Plan of Care: Acute exacerbation of chronic lower back pain with left-sided sciatica Severe spinal canal stenosis of lumbar spine Rule out T12 fracture Significant leukocytosis, possibly reactive Ankylosing spondylitis with chronic lower back pain -Continue with symptomatic care and pain management with Dilaudid 0.5 mg every 3 hours for moderate pain and 1 mg every 3 hours for severe pain. -Orthospine surgery team consulted, discussed plan of care in depth with orthopedic [employer] and recommending stat MRI. -Neurochecks every 4 hours and fall precautions in place. -PT/OT consulted TypeII diabetes mellitus with hyperglycemia -Hold Rybelsus and place patient on glycemic protocol with NovoLog sliding scale. Hypertension -Continue daily medication regimen with hydrochlorothiazide 25 mg daily losartan 100 mg daily. Hypothyroidism -Continue daily medication regimen with levothyroxine 125 mcg daily. Hyperlipidemia -Continue daily medication regimen with rosuvastatin 5 mg daily. BPH -Continue Flomax 0.8 mg daily. Data and imaging reviewed: -Morning labs reviewed. Labs completed and reviewed. CBC showing improvement of leukocytosis with WBC count decreasing from initial 31.4 down to 23.46 this morning. BMP showing elevated anion gap of 13.70 otherwise normal findings. Blood glucose 140. Liver profile showing no significant abnormalities. -Vital signs reviewed. Blood pressure 152/81, heart rate 93, respiratory rate 17, temp 98.9 F, and SpO2 of 97% on room air. -MRI was completed and radiology report reviewed showing suspected acute Schmorl's node versus fracture of the inferior endplate of T12 with bony edema and reactive enhancement, edema in the L1 superior endplate, reactive edema in the L3-L4 and L4-L5 facet joints with some mild postcontrast reactive enhancement, L3-L4 and L4-L5 severe spinal canal stenosis secondary to disc bulging and narrowed thecal sac caliber with facet joint arthropathy, moderate to severe bilateral neuroforaminal stenosis at L4-L5, L2-L3 left subarticular disc protrusion without significant canal stenosis with mild to moderate neural foraminal stenosis bilaterally, and hyperdense cyst seen on CT his lower T2 signal. -Secondary to MRI results. Patient started on Decadron 6 mg every 6 hours and called to notify orthopedic surgery team of MRI findings. CODE STATUS: Full code DVT prophylaxis: Lovenox Anticipated discharge date: Pending clinical course Anticipated discharge place: Pending clinical course Patient was seen independently by Nurse Pracitioner. This document was prepared using [employer] dictation software. Please allow for errors in powder room attendant, while rare they do occur. [place] [employer] rendered care for this patient independently, reviewed the findings and plan as documented in the note above. I did not physically speak with or examine the patient on this date. Objective - Vital Signs Vital signs: Vital Signs Temp 98.9 F 08/10/23 07:18 Pulse 93 08/10/23 07:18 Resp 17 08/10/23 07:18 BP 152/81 08/10/23 07:18 Pulse Ox 97 08/10/23 07:18 FiO2 Intake & Output 08/09/23 08/10/23 08/10/23 18:59 06:59 18:59 Output Total 1150 Balance -1150 Weight 147.418 kg 147.418 kg Output: Urine 1150 - Labs CBC & Chem 7: 08/10/23 06:49 08/10/23 06:49 Labs: Abnormal Lab Results - Last 24 Hours (Table) 08/09/23 08/09/23 08/09/23 Range/Units 13:32 13:32 16:43 WBC 31.4 H (3.8-10.6) k/uL Neutrophils # (Manual) 29.20 H (1.3-7.7) k/uL Lymphocytes # (Manual) 0.31 L (1.0-4.8) k/uL Monocytes # (Manual) 2.20 H (0-1.0) k/uL Sodium 133 L (137-145) mmol/L Glucose 198 H (74-99) mg/dL POC Glucose (mg/dL) (70-110) mg/dL Urine Protein 1+ H (Negative) Urine Bilirubin 1+ H (Negative) Urine Mucus Rare H (None) /hpf 08/09/23 08/10/23 Range/Units 21:53 05:57 WBC (3.8-10.6) k/uL Neutrophils # (Manual) (1.3-7.7) k/uL Lymphocytes # (Manual) (1.0-4.8) k/uL Monocytes # (Manual) (0-1.0) k/uL Sodium (137-145) mmol/L Glucose (74-99) mg/dL POC Glucose (mg/dL) 207 H 167 H (70-110) mg/dL Urine Protein (Negative) Urine Bilirubin (Negative) Urine Mucus (None) /hpf
[2023-08-10] MEDS: CYCLOBENZAPRINE 10 MG TAB PO SCH (14:29)
[2023-08-10] MEDS: DEXAMETHASONE SOD PHOSPHATE 10 MG/ML 1 ML VIAL IVP SCH (14:29)
[2023-08-10] MEDS: HYDROcodone/APAP 7.5-325MG 1 EACH TAB PO SCH (14:29)
[2023-08-10] MEDS: SODIUM CHLORIDE 0.9% 1,000 ML IV SCH (14:30)
[2023-08-10] MEDS: DEXAMETHASONE SOD PHOSPHATE 4 MG/ML 1 ML VIAL IVP SCH (14:43)
[2023-08-10] MEDS ORDERED: CYCLOBENZAPRINE 10 MG TAB PO SCH ×2 (16:00→21:00)
[2023-08-10 17:06] LABS: Glucose,Whole Blood 219 mg/dL (70-110)
[2023-08-10 20:40] LABS: Glucose,Whole Blood 189 mg/dL (70-110)
[2023-08-10 22:27] LABS: Glucose,Whole Blood 163 mg/dL (70-110)
[2023-08-10] MEDS: PRAMIPEXOLE 0.125 MG TAB PO SCH (22:33)
[2023-08-10] MEDS: polyethylene glycoL 3350 17 GM POWD.PACK PO SCH (22:34)
[2023-08-11 05:48] LABS: Glucose,Whole Blood 181 mg/dL (70-110)
[2023-08-11] MEDS: SENNOSIDES-DOCUSATE SODIUM 1 EACH TAB PO SCH (08:09)
[2023-08-11 09:31] LABS: HCT 43.3 % (39.6-50.0); HGB 13.5 g/dL (13.0-17.0); MCH 29.2 pg (27.0-32.0); MCHC 31.2 g/dL (32.0-37.0); MCV 93.5 FL (80.0-97.0); Mean Platelet Volume 9.5 FL (9.5-12.2); NRBC Per 100 WBC 0 X 10*3/uL (0.00-0.01); Platelet Count 233 X 10*3/uL (140-440); RBC 4.63 X 10*6/uL (4.40-5.60); RDW 14.3 % (11.5-14.5); WBC 18.71 X 10*3/uL (4.50-10.00)
--- NOTE | 2023-08-11 09:43 | P.PN ---
Subjective Progress Note Date: 08/11/23 Hospital course: Patient is a pleasant 52-year-old male with a past medical history of ankylosing spondylitis with chronic lower back pain, hypertension, hyperlipidemia, hypothyroidism, type II uye-tecqetw-zoqvzdned diabetes mellitus, and BPH. Patient presented to [facility] on 08/09/2023 with a chief complaint of acute on chronic lower back pain radiating into the left hip. Arrival to our facility, patient underwent evaluation in the emergency department. Vital signs upon arrival show blood pressure 146/93, heart rate 99, respiratory rate 18, temp 99.0 F, and SpO2 of 98% on room air. Labs completed and reviewed. CBC showing leukocytosis with WBC count of 31.4 and BMP showing hyponatremia with sodium of 133 and hyperglycemia with blood glucose of 198. Liver profile was unremarkable. Urinalysis negative for blood or infection. CT lumbar spine showing T12 inferior endplate loss of cortex possibly representing Schmutz node versus fracture, disc bulge at L3-L4 with severe spinal canal stenosis, and disc bulging at L2-L3 with possible central disc protrusion. Patient was admitted under our services with consultation to orthospine surgery team. MRI was completed and radiology report reviewed showing suspected acute Schmorl's node versus fracture of the inferior endplate of T12 with bony edema and reactive enhancement, edema in the L1 superior endplate, reactive edema in the L3-L4 and L4-L5 facet joints with some mild postcontrast reactive enhancement, L3-L4 and L4-L5 severe spinal canal stenosis secondary to disc bulging and narrowed thecal sac caliber with facet joint arthropathy, moderate to severe bilateral neuroforaminal stenosis at L4-L5, L2-L3 left subarticular disc protrusion without significant canal stenosis with mild to moderate neural foraminal stenosis bilaterally, and hyperdense cyst seen on CT his lower T2 signal. Physical exam: Patient seen and fully evaluated at bedside. He appears to be resting comfortably and reports pain remains controlled at rest with current pain medication regimen but significantly worsens with any movement. Patient also reported area of excoriation on right upper arm, small abrasion/scab orders placed for Medihoney to be applied twice daily. Vital signs reviewed and stable. General: Nontoxic, no distress and appears stated age. Derm: Skin warm and dry, normal coloration for ethnicity. Small abrasion/scabbing to right upper extremity. No surrounding erythema, swelling, or drainage. Head: Atraumatic, normocephalic and symmetric. Eyes: EOMs intact, no lid lag, and anicteric sclera Mouth: no lip lesions, mucus membranes moist Cardiovascular: regular rate and rhythm with normal S1S2, no murmur, positive posterior tibial pulses bilaterally, and cap refill < 2 seconds. Lungs: Respirations even, regular, and unlabored on room air. Lungs CTA bilaterally, no rhonchi, no rales, no wheezing, and no accessory muscle usage. Abdominal: soft, nontender to palpation, no guarding, no appreciable organomegaly Ext: ROM intact. No gross muscle atrophy, no edema, no contractures Neuro: Speech clear, face symmetrical and CN II-XII grossly intact with no noted focal neuro deficits Psych: Alert and oriented to person, place, time, and situation. Appropriate and pleasant affect. Assessment and Plan of Care: Acute exacerbation of chronic lower back pain with left-sided sciatica Severe spinal canal stenosis of lumbar spine with reactive edema Rule out T12 fracture vs acute Schmorl's node Significant leukocytosis, possibly reactive Ankylosing spondylitis with chronic lower back pain -Continue with symptomatic care and pain management with Dilaudid 0.5 mg every 3 hours for moderate pain and 1 mg every 3 hours for severe pain. -Continue Decadron 6 mg IVP every 8 hours pending further recommendations from orthospine surgery team. -Orthospine surgery team following, discussed plan of care in depth with orthopedic WEIGHT RECORDER. -Continue Neurochecks every 4 hours and fall precautions in place. -PT/OT consulted Staphylococcus aureus bacteremia, unclear source -Blood cultures positive for Staph aureus in 2 out of 2 sets. -Patient started on cefazolin 2 g every 8 hours IVPB -Infectious disease consulted TypeII diabetes mellitus with hyperglycemia -Hold Rybelsus and place patient on glycemic protocol with NovoLog sliding scale. Hypertension -Continue daily medication regimen with hydrochlorothiazide 25 mg daily losartan 100 mg daily. Hypothyroidism -Continue daily medication regimen with levothyroxine 125 mcg daily. Hyperlipidemia -Continue daily medication regimen with rosuvastatin 5 mg daily. BPH -Continue Flomax 0.8 mg daily. Data and imaging reviewed: -Morning labs reviewed. Labs completed and reviewed. CBC showing improvement of leukocytosis with WBC count decreasing from initial 31.4 down to 18.71 this morning. -Blood cultures positive for Staph aureus in 2 out of 2 sets. -Vital signs reviewed. Blood pressure 118/71, heart rate 96, respiratory rate 17, temp 98.3 F, and SpO2 of 97% on room air. Patient did have noted elevated temp overnight with temperature increasing to 100.7 F and heart rate of 120. CODE STATUS: Full code DVT prophylaxis: Lovenox Anticipated discharge date: Pending clinical course Anticipated discharge place: Pending clinical course Patient was seen independently by Nurse Pracitioner. This document was prepared using [employer] dictation software. Please allow for er rors in demographer, while rare they do occur. [place] NP rendered care for this patient independently, reviewed the findings and plan as documented in the note above. I did not physically speak with or examine the patient on this date. Objective - Vital Signs Vital signs: Vital Signs Temp 98.3 F 08/11/23 07:03 Pulse 96 08/11/23 07:03 Resp 17 08/11/23 07:03 BP 118/71 08/11/23 07:03 Pulse Ox 95 08/11/23 07:03 FiO2 Intake & Output 08/10/23 08/11/23 08/11/23 18:59 06:59 18:59 Intake Total 700 Output Total 300 2000 Balance 400 -2000 Intake: Intake, IV Titration 250 Amount Sodium Chloride 0.9% 1, 250 000 ml @ 125 mls/hr IV . Q8H [facility] Rx#:[id number] Oral 450 Output: Urine 300 2000 Other: # Voids 1 - Labs CBC & Chem 7: 08/12/23 04:09 08/12/23 04:09 Labs: Abnormal Lab Results - Last 24 Hours (Table) 08/10/23 08/10/23 08/10/23 Range/Units 06:49 06:49 11:41 WBC 23.46 H (4.50-10.00) X 10*3/uL MCHC 31.5 L (32.0-37.0) g/dL Immature Gran # 0.13 H (0.00-0.04) X 10*3/uL Neutrophils # 20.88 H (1.80-7.70) X 10*3/uL Monocytes # 1.41 H (0.20-1.00) X 10*3/uL Eosinophils # 0 L (0.04-0.35) X 10*3/uL Anion Gap 13.70 H (4.00-12.00) mmol/L BUN/Creatinine Ratio 25.67 H (12.00-20.00) Ratio Glucose 140 H (70-110) mg/dL POC Glucose (mg/dL) 167 H (70-110) mg/dL AST 10 L (14-35) U/L Albumin/Globulin Ratio 1.58 L (1.60-3.17) Ratio 08/10/23 08/10/23 08/10/23 Range/Units 17:05 20:39 22:25 WBC (4.50-10.00) X 10*3/uL MCHC (32.0-37.0) g/dL Immature Gran # (0.00-0.04) X 10*3/uL Neutrophils # (1.80-7.70) X 10*3/uL Monocytes # (0.20-1.00) X 10*3/uL Eosinophils # (0.04-0.35) X 10*3/uL Anion Gap (4.00-12.00) mmol/L BUN/Creatinine Ratio (12.00-20.00) Ratio Glucose (70-110) mg/dL POC Glucose (mg/dL) 219 H 189 H 163 H (70-110) mg/dL AST (14-35) U/L Albumin/Globulin Ratio (1.60-3.17) Ratio 08/11/23 Range/Units 05:47 WBC (4.50-10.00) X 10*3/uL MCHC (32.0-37.0) g/dL Immature Gran # (0.00-0.04) X 10*3/uL Neutrophils # (1.80-7.70) X 10*3/uL Monocytes # (0.20-1.00) X 10*3/uL Eosinophils # (0.04-0.35) X 10*3/uL Anion Gap (4.00-12.00) mmol/L BUN/Creatinine Ratio (12.00-20.00) Ratio Glucose (70-110) mg/dL POC Glucose (mg/dL) 181 H (70-110) mg/dL AST (14-35) U/L Albumin/Globulin Ratio (1.60-3.17) Ratio Microbiology - Last 24 Hours (Table) 08/09/23 16:30 Blood Culture Gram Stain - Preliminary Blood Blood Culture - Preliminary Molecular ID 08/09/23 16:45 Blood Culture Gram Stain - Preliminary Blood
[2023-08-11 09:53] LABS: ALT 12 U/L (10-49); AST 13 U/L (14-35); Albumin 3.7 g/dL (3.8-4.9); Albumin/Globulin Ratio 1.42 Ratio (1.60-3.17); Alkaline Phosphatase 57 U/L (41-126); BUN/Creat Ratio 19.86 Ratio (12.00-20.00); Blood Urea Nitrogen 13.9 mg/dL (9.0-27.0); Calcium 8.9 mg/dL (8.7-10.3); Carbon Dioxide 23.1 mmol/L (21.6-31.8); Chloride 102 mmol/L (96-109); Globulin 2.6 g/dL (1.6-3.3); Glucose 188 mg/dL (70-110); Magnesium 2.3 mg/dL (1.5-2.4); Potassium 4.4 mmol/L (3.5-5.5); Sodium 138 mmol/L (135-145); Total Bilirubin 0.4 mg/dL (0.3-1.2); Total Protein 6.3 g/dL (6.2-8.2)
--- NOTE | 2023-08-11 10:16 | P.PN ---
Subjective Progress Note Date: 08/11/23 Principal diagnosis: Intractable low back pain Patient seen and examined this morning. Patient is resting comfortably in bed. Patient does report improvement of his low back pain at rest, he does state it increases to a sharp pain with activity. He states he was able to get up to the restroom yesterday with assistance from family. Patient states he was unable to sit up in chair yesterday due to severe low back pain. Patient continues to deny any numbness or tinging to the lower extremities. He does report that the pain radiates into the lateral and anterior region of the left lower extremity into his left knee. MRI of the lumbar spine was taken yesterday 08/10/2023, discussed results with patient. At this time we will continue with conservative measures until further discussed with Dr. Ruffin. Encourage patient to increase activity as tolerated. Objective - Vital Signs Vital signs: Vital Signs Temp 98.3 F 08/11/23 07:03 Pulse 96 08/11/23 07:03 Resp 17 08/11/23 07:03 BP 118/71 08/11/23 07:03 Pulse Ox 95 08/11/23 07:03 FiO2 Intake & Output 08/10/23 08/11/23 08/11/23 18:59 06:59 18:59 Intake Total 700 Output Total 300 2000 Balance 400 -2000 Intake: Intake, IV Titration 250 Amount Sodium Chloride 0.9% 1, 250 000 ml @ 125 mls/hr IV . Q8H [facility] Rx#:[id number] Oral 450 Output: Urine 300 2000 Other: # Voids 1 - Exam General: The patient is awake and alert, in no acute distress. Skin: Skin is warm and dry with no obvious rashes or lesions. Eye: Pupils are equal, round and reactive to light, extra-ocular movements are intact; there is normal conjunctiva bilaterally. Neck: The neck is supple, there is no tenderness and ROM intact. Gastrointestinal: Soft, non-distended, non-tender abdomen. Back: There is no tenderness to palpation in the midline, paralumbar, parathoracic or buttocks region. There is no obvious deformity. Musculoskeletal: ROM limited secondary to pain and stiffness. Right: Shoulder abduction 5/5, elbow flexors 5/5, wrist dorsiflexors 5/5. finger abductor 5/5, rn rehab 5/5, hip flexor 5/5, knee flexor 5/5, ankle dorsiflexor 5/5, ankle plantarflexion 5/5 and extensor hallucis 5/5. Left: Shoulder abduction 5/5, elbow flexors 5/5, wrist dorsiflexors 5/5. finger abductor 5/5, rn rehab 5/5, hip flexor 4-/5, knee flexor 5/5, ankle dorsiflexor 5/5, ankle plantarflexion 5/5 and extensor hallucis 5/5. Neurological: CN 2-12 intact. There are no obvious motor or sensory deficits. Movement and coordination equal and intact. Sensory exam to light touch intact C5-T1 and intact from L2-S1. Reflexes 2/4 in bilateral upper and lower extremities. Negative Hoffmans, babinski, and clonus signs. Psychiatric: Cooperative, appropriate mood & affect, normal judgment. - Labs CBC & Chem 7: 08/11/23 03:43 08/11/23 03:43 Labs: Abnormal Lab Results - Last 24 Hours (Table) 08/10/23 08/10/23 08/10/23 Range/Units 06:49 06:49 11:41 WBC 23.46 H (4.50-10.00) X 10*3/uL MCHC 31.5 L (32.0-37.0) g/dL Immature Gran # 0.13 H (0.00-0.04) X 10*3/uL Neutrophils # 20.88 H (1.80-7.70) X 10*3/uL Monocytes # 1.41 H (0.20-1.00) X 10*3/uL Eosinophils # 0 L (0.04-0.35) X 10*3/uL Anion Gap 13.70 H (4.00-12.00) mmol/L BUN/Creatinine Ratio 25.67 H (12.00-20.00) Ratio Glucose 140 H (70-110) mg/dL POC Glucose (mg/dL) 167 H (70-110) mg/dL AST 10 L (14-35) U/L Albumin/Globulin Ratio 1.58 L (1.60-3.17) Ratio 08/10/23 08/10/23 08/10/23 Range/Units 17:05 20:39 22:25 WBC (4.50-10.00) X 10*3/uL MCHC (32.0-37.0) g/dL Immature Gran # (0.00-0.04) X 10*3/uL Neutrophils # (1.80-7.70) X 10*3/uL Monocytes # (0.20-1.00) X 10*3/uL Eosinophils # (0.04-0.35) X 10*3/uL Anion Gap (4.00-12.00) mmol/L BUN/Creatinine Ratio (12.00-20.00) Ratio Glucose (70-110) mg/dL POC Glucose (mg/dL) 219 H 189 H 163 H (70-110) mg/dL AST (14-35) U/L Albumin/Globulin Ratio (1.60-3.17) Ratio 08/11/23 Range/Units 05:47 WBC (4.50-10.00) X 10*3/uL MCHC (32.0-37.0) g/dL Immature Gran # (0.00-0.04) X 10*3/uL Neutrophils # (1.80-7.70) X 10*3/uL Monocytes # (0.20-1.00) X 10*3/uL Eosinophils # (0.04-0.35) X 10*3/uL Anion Gap (4.00-12.00) mmol/L BUN/Creatinine Ratio (12.00-20.00) Ratio Glucose (70-110) mg/dL POC Glucose (mg/dL) 181 H (70-110) mg/dL AST (14-35) U/L Albumin/Globulin Ratio (1.60-3.17) Ratio Microbiology - Last 24 Hours (Table) 08/09/23 16:30 Blood Culture Gram Stain - Preliminary Blood Blood Culture - Preliminary Molecular ID 08/09/23 16:45 Blood Culture Gram Stain - Preliminary Blood Assessment and Plan Assessment: Acute on Chronic low back pain Lumbar spondylosis with severe stenosis L2-L3 left paracentral HNP L3-L4 HNP with severe spinal stenosis L4-L5 facet hypertrophy with severe stenosis Left lower extremity radiculopathy Multiple comorbidities Plan: MRI of the Lumbar Spine taken 08/10/23 demonstrates a suspected acute Schmorl's node versus fracture of the inferior endplate of T12 with bony edema and reactive enhancement. There is also edema in the L1 superior endplate, which may be reactive to the T12 fracture/Schmorl's node. At the levels L3-L4 and L4-L5 severe spinal canal stenosis secondary disc bulging and narrowed thecal sac caliber with facet joint arthropathy. there is disc degeneration changes with moderate to severe bilateral neural foraminal stenosis at L4-L5. At L2-L3 Left subarticular disc protrusion without significant canal stenosis. Zwtv-lq-[id number] neural foraminal stenosis bilaterally. Hyperdense cyst seen on prior CT is lower T2 signal. Consider renal mass protocol MRI for complete characterization if clinically warranted. We will continue with conservative treatment at this time until further discussion with Dr. Ruffin. We will continue to follow patient throughout his stay. 2. Appreciate medical management 3. Pain management -Adequate at this time. 4. GI prophylaxis -senna, miralax 5. DVT prophylaxis - heparin 6. Consult placed for PT/OT - weightbearing as tolerated with a walker as needed. 7. Appreciate consult
[2023-08-11 11:57] LABS: Glucose,Whole Blood 192 mg/dL (70-110)
--- NOTE | 2023-08-11 11:59 | XR ---
EXAMINATION TYPE: XR lumbar spine with bend/flex DATE OF EXAM: 08/11/2023 11:53 AM CLINICAL INDICATION:Male, 52 years old with history of Intractable back pain, r/o mobility of L3-L4; PHH COMPARISON: None TECHNIQUE: XR lumbar spine with bend/flex - Frontal, lateral and coned in L5-S1 lateral views of the spine. FINDINGS: No evidence of any acute osseous pathology. No evidence of loss of vertebral body height i s seen. There is normal alignment of the lumbar vertebral bodies. Scattered disc space narrowing. Mul tilevel marginal osteophyte formation throughout the visualized spine. There is facet joint arthropat hy throughout the spine. Scattered at least mild neural foraminal stenosis. Atherosclerosis of the ar terial vasculature. IMPRESSION: 1. No acute fracture. 2. Mild to moderate multilevel disc degeneration.
[2023-08-11 17:01] LABS: Glucose,Whole Blood 185 mg/dL (70-110)
--- NOTE | 2023-08-11 17:05 | P.CONS ---
History of Present Illness - Reason for Consult Consult date: 08/11/23 - History of Present Illness Patient is a 52-year-old male with a past medical history significant for diabetes mellitus hypertension hypothyroidism, apparently Patient has been dealing with lower back pain that seem to be getting worse over the last few weeks patient denies any history of any trauma patient describes the lower back pain to be sharp to moderate severe intensity without radiation. Denies any b owel bladder or bowel patient denies high-grade fever or any chills with the symptoms the patient present to the hospital on arrival to the ER patient was afebrile however he did spike a fever 100.7 F last evening patient was tachycardic but not hypotensive or hypoxic and no need for supplemental oxygen patient did have a white count of 31.4 on admission that is down to 18.7 creatinine is 0.7 as of the mildly elevated patient did have a blood cultures come positive for MSSA x 2 patient did have abdominal pelvis CT no evidence for spinal fracture T12 inferior endplate loss of cortex possibly representing Schmorl's node with a blood cultures coming positive with Staph aureus infectious disease was consulted for further management of antibiotic therapy patient did have a lumbar spine MRI completed this morning there was suspected acute Schmorl's node with the fracture of the inferior endplate of T12 and bony edema and grade 2 related to her vitamin, infectious was consulted today because of positive blood culture Past Medical History Past Medical History: Diabetes Mellitus, Hypertension, Thyroid Disorder Additional Past Medical History / Comment(s): kidney stones. pre diabetic History of Any Multi-Drug Resistant Organisms: None Reported Past Surgical History: Appendectomy Additional Past Surgical History / Comment(s): cyst removal. spur off left foot and right foot Past Psychological History: No Psychological Hx Reported Smoking Status: Never smoker Past Alcohol Use History: Rare Past Drug Use History: None Reported Medications and Allergies Home Medications Medication Instructions Recorded Confirmed Type Celecoxib 200 mg PO BID 08/09/23 08/09/23 History Cyclobenzaprine HCl 10 mg PO HS 08/09/23 08/09/23 History Etodolac [Lodine] 400 mg PO BID PRN 08/09/23 08/09/23 History HYDROcodone/APAP 7.5-325MG [[place] 1 tab PO TID 08/09/23 08/09/23 History 7.5-325] Levothyroxine Sodium [Synthroid] 125 mcg PO DAILY 08/09/23 08/09/23 History Losartan Potassium [Cozaar] 100 mg PO DAILY 08/09/23 08/09/23 History Pramipexole [Mirapex] 0.25 mg PO HS 08/09/23 08/09/23 History Rosuvastatin Calcium 5 mg PO DAILY 08/09/23 08/09/23 History Semaglutide [Rybelsus] 7 mg PO DAILY 08/09/23 08/09/23 History Tamsulosin [Flomax] 0.8 mg PO DAILY 08/09/23 08/09/23 History diazePAM [Valium] 5 mg PO Q8H 08/09/23 08/09/23 History hydroCHLOROthiazide [Hydrodiuril] 25 mg PO DAILY 08/09/23 08/09/23 History predniSONE 10 mg PO DAILY PRN 08/09/23 08/09/23 History Allergies Allergy/AdvReac Type Severity Reaction Status Date / Time celery Allergy Unknown Verified 08/09/23 13:38 diphenhydramine Allergy Unknown Verified 08/09/23 13:38 [From Benadryl] NSAIDS (Non-Steroidal Allergy Unknown Verified 08/09/23 13:38 Anti-Inflamma peanut Allergy Unknown Verified 08/09/23 13:38 tomato Allergy Unknown Verified 08/09/23 13:38 Physical Exam Vitals: Vital Signs Temp Pulse Resp BP Pulse Ox 08/11/23 07:03 98.3 F 96 17 118/71 95 08/11/23 01:32 98.1 F 99 18 126/83 96 08/10/23 19:48 98.7 F 112 H 19 136/91 93 L 08/10/23 17:06 100.7 F H 120 H 19 113/76 93 L Intake and Output 08/10/23 08/11/23 08/11/23 22:59 06:59 14:59 Output Total 300 2000 Balance -300 -2000 Output: Urine 300 2000 Other: # Voids 1 Results CBC & Chem 7: 08/11/23 03:43 08/11/23 03:43 Labs: Abnormal Lab Results - Last 24 Hours (Table) 08/10/23 08/10/23 08/10/23 Range/Units 06:49 06:49 11:41 WBC 23.46 H (4.50-10.00) X 10*3/uL MCHC 31.5 L (32.0-37.0) g/dL Immature Gran # 0.13 H (0.00-0.04) X 10*3/uL Neutrophils # 20.88 H (1.80-7.70) X 10*3/uL Monocytes # 1.41 H (0.20-1.00) X 10*3/uL Eosinophils # 0 L (0.04-0.35) X 10*3/uL Anion Gap 13.70 H (4.00-12.00) mmol/L BUN/Creatinine Ratio 25.67 H (12.00-20.00) Ratio Glucose 140 H (70-110) mg/dL POC Glucose (mg/dL) 167 H (70-110) mg/dL AST 10 L (14-35) U/L Albumin/Globulin Ratio 1.58 L (1.60-3.17) Ratio 08/10/23 08/10/23 08/10/23 Range/Units 17:05 20:39 22:25 WBC (4.50-10.00) X 10*3/uL MCHC (32.0-37.0) g/dL Immature Gran # (0.00-0.04) X 10*3/uL Neutrophils # (1.80-7.70) X 10*3/uL Monocytes # (0.20-1.00) X 10*3/uL Eosinophils # (0.04-0.35) X 10*3/uL Anion Gap (4.00-12.00) mmol/L BUN/Creatinine Ratio (12.00-20.00) Ratio Glucose (70-110) mg/dL POC Glucose (mg/dL) 219 H 189 H 163 H (70-110) mg/dL AST (14-35) U/L Albumin/Globulin Ratio (1.60-3.17) Ratio 08/11/23 08/11/23 Range/Units 03:43 05:47 WBC 18.71 H (4.50-10.00) X 10*3/uL MCHC 31.2 L (32.0-37.0) g/dL Immature Gran # (0.00-0.04) X 10*3/uL Neutrophils # (1.80-7.70) X 10*3/uL Monocytes # (0.20-1.00) X 10*3/uL Eosinophils # (0.04-0.35) X 10*3/uL Anion Gap (4.00-12.00) mmol/L BUN/Creatinine Ratio (12.00-20.00) Ratio Glucose (70-110) mg/dL POC Glucose (mg/dL) 181 H (70-110) mg/dL AST (14-35) U/L Albumin/Globulin Ratio (1.60-3.17) Ratio Microbiology - Last 24 Hours (Table) 08/09/23 16:45 Blood Culture Gram Stain - Preliminary Blood Blood Culture - Preliminary Presumptive Staph aureus 08/09/23 16:30 Blood Culture Gram Stain - Preliminary Blood Blood Culture - Preliminary Presumptive Staph aureus Molecular ID Assessment and Plan Plan: 1patient with MSSA bacteremia in this patient who did have a chronic back pain with acute worsening and now with evidence of MSSA bacteremia abnormal CT/MRI possible discitis/osteomyelitis 2-blood cultures will be repeated document clearance of his bacteremia 3-check inflammatory markers 4-await further recommendation from orthopedic surgery after review of his CT 5cefazolin 2 g every 8 hours to continue while waiting for the workup to be completed Question concern about ulcer and hematoma We will follow on clinical condition and cultures to further adjust medication if needed Thank you for this consultation we will follow the patient along with you Dictation was produced using [employer] dictation software. please excuse any grammatical, word or spelling errors. Time with Patient: Greater than 30
[2023-08-11 20:46] LABS: Glucose,Whole Blood 250 mg/dL (70-110)
[2023-08-12 05:17] LABS: Glucose,Whole Blood 188 mg/dL (70-110)
--- NOTE | 2023-08-12 07:31 | P.PN ---
Subjective Progress Note Date: 08/12/23 Principal diagnosis: Intractable low back pain Patient seen and examined this morning. Patient is resting comfortably in bed. Patient states he continues with severe pain with activity. He continues to deny any numbness or tinging to the lower extremities. He does report that the pain radiates into the lateral and anterior region of the left lower extremity into his left knee. Patient is wanting to move forward with surgical intervention of L3-L5 decompression and fusion scheduled for tomorrow 08/13/2023. Dr. Ruffin did come and speak with patient in room. All questions and concerns have been addressed. Patient will be NPO at [place]. Prescription for LSO brace has been placed in chart. Objective - Vital Signs Vital signs: Vital Signs Temp 97.5 F L 08/12/23 02:00 Pulse 82 08/12/23 02:00 Resp 14 08/12/23 02:00 BP 129/79 08/12/23 02:00 Pulse Ox 94 L 08/12/23 02:00 FiO2 Intake & Output 08/11/23 08/12/23 08/12/23 18:59 06:59 18:59 Intake Total 1050 Output Total 700 Balance 350 Intake: Intake, IV Titration 50 Amount ceFAZolin 2 gm In Sodium 50 Chloride 0.9% 50 ml @ 100 mls/hr IVPB Q8H [facility] Rx#: [id number] Oral 1000 Output: Urine 700 - Exam General: The patient is awake and alert, in no acute distress. Skin: Skin is warm and dry with no obvious rashes or lesions. Eye: Pupils are equal, round and reactive to light, extra-ocular movements are intact; there is normal conjunctiva bilaterally. Neck: The neck is supple, there is no tenderness and ROM intact. Gastrointestinal: Soft, non-distended, non-tender abdomen. Back: There is no tenderness to palpation in the midline, paralumbar, parathoracic or buttocks region. There is no obvious deformity. Musculoskeletal: ROM limited secondary to pain and stiffness. Right: Shoulder abduction 5/5, elbow flexors 5/5, wrist dorsiflexors 5/5. finger abductor 5/5, loop drier operator 5/5, hip flexor 5/5, knee flexor 5/5, ankle dorsiflexor 5/5, ankle plantarflexion 5/5 and extensor hallucis 5/5. Left: Shoulder abduction 5/5, elbow flexors 5/5, wrist dorsiflexors 5/5. finger abductor 5/5, loop drier operator 5/5, hip flexor 4-/5, knee flexor 5/5, ankle dorsiflexor 5/5, ankle plantarflexion 5/5 and extensor hallucis 5/5. Neurological: CN 2-12 intact. There are no obvious motor or sensory deficits. Movement and coordination equal and intact. Sensory exam to light touch intact C5-T1 and intact from L2-S1. Reflexes 2/4 in bilateral upper and lower extremiti es. Negative Hoffmans, babinski, and clonus signs. Psychiatric: Cooperative, appropriate mood & affect, normal judgment. - Labs CBC & Chem 7: 08/12/23 04:09 08/12/23 04:09 Labs: Abnormal Lab Results - Last 24 Hours (Table) 08/11/23 08/11/23 08/11/23 Range/Units 03:43 03:43 11:56 WBC 18.71 H (4.50-10.00) X 10*3/uL MCHC 31.2 L (32.0-37.0) g/dL Anion Gap 12.90 H (4.00-12.00) mmol/L Glucose 188 H (70-110) mg/dL POC Glucose (mg/dL) 192 H (70-110) mg/dL AST 13 L (14-35) U/L Albumin 3.7 L (3.8-4.9) g/dL Albumin/Globulin Ratio 1.42 L (1.60-3.17) Ratio 08/11/23 08/11/23 08/12/23 Range/Units 16:59 20:44 05:16 WBC (4.50-10.00) X 10*3/uL MCHC (32.0-37.0) g/dL Anion Gap (4.00-12.00) mmol/L Glucose (70-110) mg/dL POC Glucose (mg/dL) 185 H 250 H 188 H (70-110) mg/dL AST (14-35) U/L Albumin (3.8-4.9) g/dL Albumin/Globulin Ratio (1.60-3.17) Ratio Microbiology - Last 24 Hours (Table) 08/09/23 16:45 Blood Culture Gram Stain - Preliminary Blood Blood Culture - Preliminary Presumptive Staph aureus 08/09/23 16:30 Blood Culture Gram Stain - Preliminary Blood Blood Culture - Preliminary Presumptive Staph aureus Molecular ID Assessment and Plan Assessment: Acute on Chronic low back pain Lumbar spondylosis with severe stenosis L2-L3 left paracentral HNP L3-L4 HNP with severe spinal stenosis L4-L5 facet hypertrophy with severe stenosis Left lower extremity radiculopathy Multiple comorbidities Plan: 1. Appreciate medical management 2. Patient will be NPO at midnight for scheduled procedure L3-L5 decompression and fusion scheduled for tomorrow, 08/13/2023 3. Pain management -Adequate at this time. 4. GI prophylaxis -senna, miralax 5. DVT prophylaxis - heparin 6. Consult placed for PT/OT - weightbearing as tolerated with a walker as needed. Prescription for LSO brace has been placed in chart. 7. Appreciate consult
[2023-08-12 09:13] LABS: Magnesium 2.2 mg/dL (1.5-2.4)
[2023-08-12 09:42] LABS: HCT 40.4 % (39.6-50.0); HGB 12.5 g/dL (13.0-17.0); MCH 29.2 pg (27.0-32.0); MCHC 30.9 g/dL (32.0-37.0); MCV 94.4 FL (80.0-97.0); Mean Platelet Volume 9.7 FL (9.5-12.2); NRBC Per 100 WBC 0 X 10*3/uL (0.00-0.01); Platelet Count 250 X 10*3/uL (140-440); RBC 4.28 X 10*6/uL (4.40-5.60); WBC 16.08 X 10*3/uL (4.50-10.00)
[2023-08-12 09:44] LABS: Blood Urea Nitrogen 18.3 mg/dL (9.0-27.0); Carbon Dioxide 22.4 mmol/L (21.6-31.8); Chloride 103 mmol/L (96-109); Glucose 209 mg/dL (70-110); Potassium 4.4 mmol/L (3.5-5.5); Sodium 136 mmol/L (135-145)
[2023-08-12 09:45] LABS: ALT 34 U/L (10-49); AST 22 U/L (14-35); Albumin 3.4 g/dL (3.8-4.9); Albumin/Globulin Ratio 1.48 Ratio (1.60-3.17); Alkaline Phosphatase 54 U/L (41-126); Calcium 8.6 mg/dL (8.7-10.3); Globulin 2.3 g/dL (1.6-3.3); Total Bilirubin <0.2 mg/dL (0.3-1.2); Total Protein 5.7 g/dL (6.2-8.2)
[2023-08-12 12:07] LABS: Glucose,Whole Blood 220 mg/dL (70-110)
--- NOTE | 2023-08-12 12:43 | P.PN ---
Subjective Progress Note Date: 08/12/23 Hospital course: Patient is a pleasant 52-year-old male with a past medical history of ankylosing spondylitis with chronic lower back pain, hypertension, hyperlipidemia, hypothyroidism, type II [id number] diabetes mellitus, and BPH. Patient presented to [facility] on 08/09/2023 with a chief complaint of acute on chronic lower back pain radiating into the left hip. Arrival to our facility, patient underwent evaluation in the emergency department. Vital signs upon arrival show blood pressure 146/93, heart rate 99, respiratory rate 18, temp 99.0 F, and SpO2 of 98% on room air. Labs completed and reviewed. CBC showing leukocytosis with WBC count of 31.4 and BMP showing hyponatremia with sodium of 133 and hyperglycemia with blood glucose of 198. Liver profile was unremarkable. Urinalysis negative for blood or infection. CT lumbar spine showing T12 inferior endplate loss of cortex possibly representing Schmutz node versus fracture, disc bulge at L3-L4 with severe spinal canal stenosis, and disc bulging at L2-L3 with possible central disc protrusion. Patient was admitted under our services with consultation to orthospine surgery team. MRI was completed and radiology report reviewed showing suspected acute Schmorl's node versus fracture of the inferior endplate of T12 with bony edema and reactive enhancement, edema in the L1 superior endplate, reactive edema in the L3-L4 and L4-L5 facet joints with some mild postcontrast reactive enhancement, L3-L4 and L4-L5 severe spinal canal stenosis secondary to disc bulging and narrowed thecal sac caliber with facet joint arthropathy, moderate to severe bilateral neuroforaminal stenosis at L4-L5, L2-L3 left subarticular disc protrusion without significant canal stenosis with mild to moderate neural foraminal stenosis bilaterally, and hyperdense cyst seen on CT his lower T2 signal. Physical exam: Patient seen and fully evaluated at bedside. He reports continued pain with any movement otherwise continues to deny having any numbness/tingling/weakness or involuntary loss of bowel or bladder. Patient does report feeling constipated. Orders placed for lactulose. Patient is scheduled to undergo decompression and fusion tomorrow with Dr. Ruffin. Vital signs reviewed and stable. General: Nontoxic, no distress and appears stated age. Derm: Skin warm and dry, normal coloration for ethnicity. Small abrasion/scabbing to right upper extremity. No surrounding erythema, swelling, or drainage. Head: Atraumatic, normocephalic and symmetric. Eyes: EOMs intact, no lid lag, and anicteric sclera Mouth: no lip lesions, mucus membranes moist Cardiovascular: regular rate and rhythm with normal S1S2, no murmur, positive posterior tibial pulses bilaterally, and cap refill < 2 seconds. Lungs: Respirations even, regular, and unlabored on room air. Lungs CTA bilaterally, no rhonchi, no rales, no wheezing, and no accessory muscle usage. Abdominal: soft, nontender to palpation, no guarding, no appreciable organomegaly Ext: ROM intact. No gross muscle atrophy, no edema, no contractures Neuro: Speech clear, face symmetrical and CN II-XII grossly intact with no noted focal neuro deficits Psych: Alert and oriented to person, place, time, and situation. Appropriate and pleasant affect. Assessment and Plan of Care: Acute exacerbation of chronic lower back pain with left-sided sciatica Severe spinal canal stenosis of lumbar spine with reactive edema Rule out T12 fracture vs acute Schmorl's node Significant leukocytosis, possibly reactive Ankylosing spondylitis with chronic lower back pain -Continue with symptomatic care and pain management with Dilaudid 0.5 mg every 3 hours for moderate pain and 1 mg every 3 hours for severe pain. -Continue Decadron 6 mg IVP every 8 hours pending further recommendations from orthospine surgery team. -Orthospine surgery team following, discussed plan of care in depth with orthopedic MINERAL SURVEYOR. -Continue Neurochecks every 4 hours and fall precautions in place. -PT/OT consulted Staphylococcus aureus bacteremia, unclear source possibly discitis versus osteomyelitis -Blood cultures positive for Staph aureus in 2 out of 2 sets. -Patient started on cefazolin 2 g every 8 hours IVPB -Infectious disease consulted Constipation Continue MiraLAX 17 g nightly and patient given a one-time dose of lactulose. Will monitor for resolution. TypeII diabetes mellitus with hyperglycemia -Hold Rybelsus and place patient on glycemic protocol with NovoLog sliding scale. Hypertension -Continue daily medication regimen with hydrochlorothiazide 25 mg daily losartan 100 mg daily. Hypothyroidism -Continue daily medication regimen with levothyroxine 125 mcg daily. Hyperlipidemia -Continue daily medication regimen with rosuvastatin 5 mg daily. BPH -Continue Flomax 0.8 mg daily. Data and imaging reviewed: -Morning labs reviewed. Labs completed and reviewed. CBC showing improvement of leukocytosis with WBC count decreasing from initial 31.4 down to 16.08 this morning hemoglobin stable at 12.5. BMP showing mild hyperglycemia with glucose of 209, magnesium 2.2. Liver profile showing mild hypoalbuminemia with albumin of 3.4 otherwise no significant abnormalities. -Blood cultures preliminarily positive for Staph aureus in 2 out of 2 sets. -Vital signs reviewed. Blood pressure blood pressure 131/83, heart rate 90, respiratory rate 17, temp 98.2 F, and SpO2 of 97% on room air. CODE STATUS: Full code DVT prophylaxis: Lovenox Anticipated discharge date: Pending clinical course Anticipated discharge place: Pending clinical course Patient was seen independently by Nurse Pracitioner. This document was prepared using [employer] dictation software. Please allow for errors in packaging sales, while rare they do occur. I reviewed the documentation as provided by the TABATHA above, who is the original author of this note. I agree with the documented assessment and plan, with the following changes: none Objective - Vital Signs Vital signs: Vital Signs Temp 98.2 F 08/12/23 07:00 Pulse 90 08/12/23 07:00 Resp 17 08/12/23 07:00 BP 131/83 08/12/23 07:00 Pulse Ox 97 08/12/23 07:00 FiO2 Intake & Output 08/11/23 08/12/23 08/12/23 18:59 06:59 18:59 Intake Total 1050 Output Total 700 Balance 350 Intake: Intake, IV Titration 50 Amount ceFAZolin 2 gm In Sodium 50 Chloride 0.9% 50 ml @ 100 mls/hr IVPB Q8H [facility] Rx#: [id number] Oral 1000 Output: Urine 700 Other: # Voids 2 - Labs CBC & Chem 7: 08/12/23 04:09 08/12/23 04:09 Labs: Abnormal Lab Results - Last 24 Hours (Table) 08/11/23 08/11/23 08/11/23 Range/Units 03:43 03:43 11:56 WBC 18.71 H (4.50-10.00) X 10*3/uL MCHC 31.2 L (32.0-37.0) g/dL Anion Gap 12.90 H (4.00-12.00) mmol/L Glucose 188 H (70-110) mg/dL POC Glucose (mg/dL) 192 H (70-110) mg/dL AST 13 L (14-35) U/L Albumin 3.7 L (3.8-4.9) g/dL Albumin/Globulin Ratio 1.42 L (1.60-3.17) Ratio 08/11/23 08/11/23 08/12/23 Range/Units 16:59 20:44 05:16 WBC (4.50-10.00) X 10*3/uL MCHC (32.0-37.0) g/dL Anion Gap (4.00-12.00) mmol/L Glucose (70-110) mg/dL POC Glucose (mg/dL) 185 H 250 H 188 H (70-110) mg/dL AST (14-35) U/L Albumin (3.8-4.9) g/dL Albumin/Globulin Ratio (1.60-3.17) Ratio Microbiology - Last 24 Hours (Table) 08/09/23 16:45 Blood Culture Gram Stain - Preliminary Blood Blood Culture - Preliminary Presumptive Staph aureus 08/09/23 16:30 Blood Culture Gram Stain - Preliminary Blood Blood Culture - Preliminary Presumptive Staph aureus Molecular ID
[2023-08-12] MEDS: LACTULOSE 20 GM/30 ML CUP PO ONE ×2 (13:16→13:26)
--- NOTE | 2023-08-12 15:36 | P.PN ---
Subjective Progress Note Date: 08/12/23 Principal diagnosis: Reason for follow-up is MSSA bacteremia and discitis Patient is a 52-year-old male with multiple comorbidities including a lower back pain presented to hospital for worsening Back pain patient also have a positive blood culture with MSSA and abnormal MRI suspicious for discitis On today's evaluation that is 08/12/2023,the patient remains to be afebrile, patient is on room air not requiring supplemental oxygen and denies any shortness of breath no chest pain or cough.Patient denies having any nausea or vomiting, patient denies any worsening lower back pain. Patient white count is 16.08, creatinine 0 point 6 repeat blood cultures pending Objective - Vital Signs Vital signs: Vital Signs Temp 98.2 F 08/12/23 07:00 Pulse 90 08/12/23 07:00 Resp 17 08/12/23 07:00 BP 131/83 08/12/23 07:00 Pulse Ox 97 08/12/23 07:00 FiO2 Intake & Output 08/11/23 08/12/23 08/12/23 18:59 06:59 18:59 Intake Total 1050 Output Total 700 Balance 350 Intake: Intake, IV Titration 50 Amount ceFAZolin 2 gm In Sodium 50 Chloride 0.9% 50 ml @ 100 mls/hr IVPB Q8H COUNTS [facility]CLUDE [facility] BEDS AT [facility] Rx#: [id number] Oral 1000 Output: Urine 700 Other: # Voids 2 - Exam Middle-age male lying in bed in no distress Respiratory system unlabored breathing decreased breath sound the base Heart S1-S2 regular Abdominal soft no tenderness Extremities no edema feet Skin no rashes, no masses palpable Patient is awake alert oriented x 3 mood and affect is normal Exam compleetd with help of GAME OPERATOR - Labs CBC & Chem 7: 08/12/23 04:09 08/12/23 04:09 Labs: Abnormal Lab Results - Last 24 Hours (Table) 08/11/23 08/11/23 08/11/23 Range/Units 03:43 03:43 11:56 WBC 18.71 H (4.50-10.00) X 10*3/uL MCHC 31.2 L (32.0-37.0) g/dL Anion Gap 12.90 H (4.00-12.00) mmol/L Glucose 188 H (70-110) mg/dL POC Glucose (mg/dL) 192 H (70-110) mg/dL AST 13 L (14-35) U/L Albumin 3.7 L (3.8-4.9) g/dL Albumin/Globulin Ratio 1.42 L (1.60-3.17) Ratio 08/11/23 08/11/23 08/12/23 Range/Units 16:59 20:44 05:16 WBC (4.50-10.00) X 10*3/uL MCHC (32.0-37.0) g/dL Anion Gap (4.00-12.00) mmol/L Glucose (70-110) mg/dL POC Glucose (mg/dL) 185 H 250 H 188 H (70-110) mg/dL AST (14-35) U/L Albumin (3.8-4.9) g/dL Albumin/Globulin Ratio (1.60-3.17) Ratio Microbiology - Last 24 Hours (Table) 08/09/23 16:45 Blood Culture Gram Stain - Preliminary Blood Blood Culture - Preliminary Presumptive Staph aureus 08/09/23 16:30 Blood Culture Gram Stain - Preliminary Blood Blood Culture - Preliminary Presumptive Staph aureus Molecular ID Assessment and Plan (1) MSSA bacteremia Current Visit: Yes Status: Acute Code(s): R78.81 - BACTEREMIA; B95.61 - METHICILLIN SUSCEP STAPH INFCT CAUSING DIS CLASSD [id number] SNOMED Code(s): 248306890 (2) Lumbar discitis Current Visit: Yes Status: Acute Code(s): M46.46 - DISCITIS, UNSPECIFIED, LUMBAR REGION SNOMED Code(s): 066157331 (3) Leukocytosis Current Visit: Yes Status: Acute Code(s): D72.829 - ELEVATED WHITE BLOOD CELL COUNT, UNSPECIFIED SNOMED Code(s): 274284542 Plan: This is a telehealth visit 1patient with MSSA bacteremia in this patient who did have a chronic back pain with acute worsening and now with evidence of MSSA bacteremia abnormal CT/MRI possible discitis/osteomyelitis 2-blood cultures has been repeated document clearance of his bacteremia 3- inflammatory markers currently pending 4-patient has been evaluated by orthopedic surgery and planning for surgery tomorrow 5patient to continue with cefazolin 2 g every 8 hours and monitor clinical course closely Question concern about ulcer and hematoma Dictation was produced using dragon dictation software. please excuse any grammatical, word or spelling errors. Time with Patient: Less than 30
[2023-08-12 17:58] LABS: Glucose,Whole Blood 324 mg/dL (70-110)
[2023-08-12 20:12] LABS: Glucose,Whole Blood 307 mg/dL (70-110)
[2023-08-13] MEDS ORDERED: TRANEXAMIC 1,000 MG/100ML-NACL 1,000 MG in SALINE 1 100ML.BAG IVPB PRN (06:00)
[2023-08-13 06:10] LABS: Glucose,Whole Blood 175 mg/dL (70-110)
[2023-08-13] MEDS: HYDROmorphone 0.5 MG/0.5 ML SYRINGE IVP PRN (06:40)
[2023-08-13 08:58] LABS: HCT 40.2 % (39.6-50.0); MCHC 32.3 g/dL (32.0-37.0); MCV 92.6 FL (80.0-97.0); Mean Platelet Volume 9.4 FL (9.5-12.2); NRBC Per 100 WBC 0 X 10*3/uL (0.00-0.01); Platelet Count 260 X 10*3/uL (140-440); RBC 4.34 X 10*6/uL (4.40-5.60); RDW 13.9 % (11.5-14.5); WBC 13.41 X 10*3/uL (4.50-10.00)
[2023-08-13 10:05] LABS: ALT 43 U/L (10-49); AST 20 U/L (14-35); Albumin 3.4 g/dL (3.8-4.9); Albumin/Globulin Ratio 1.55 Ratio (1.60-3.17); Alkaline Phosphatase 53 U/L (41-126); Blood Urea Nitrogen 14.9 mg/dL (9.0-27.0); Calcium 8.5 mg/dL (8.7-10.3); Carbon Dioxide 22.4 mmol/L (21.6-31.8); Chloride 103 mmol/L (96-109); Globulin 2.2 g/dL (1.6-3.3); Glucose 177 mg/dL (70-110); Magnesium 2.2 mg/dL (1.5-2.4); Potassium 4.4 mmol/L (3.5-5.5); Sodium 137 mmol/L (135-145); Total Bilirubin 0.2 mg/dL (0.3-1.2); Total Protein 5.6 g/dL (6.2-8.2)
--- NOTE | 2023-08-13 10:05 | CDI ---
Documentation Clarification Form Date: 08/13/2023 From: Erica Garcia Phone: [phone] Admit Date: 08/11/2023 09:40:00 AM Patient Name: Reji Howard Visit Number: [id number] Discharge Date: ATTENTION: The Clinical Documentation Specialists (CDI) and [facility] Coding Staff appreciate your assistance in clarifying documentation. Please respond to the clarification below the line at the bottom and electronically sign. The CDI & [facility] Coding staff will review the response and follow-up if needed. Please note: Queries are made part of the Legal Health Record. If you have any questions, please contact the author of this message via ITS. Dr. Willem Sanchez: Patient has a documented BMI of 42.9 on 08/10. Additional clarification is requested. History/Risk Factors: 52 year old male with a history of ankylosing spondylitis, DM2, HTN HLD who presents with lower back pain Clinical Indicators: 08/10 Patients weight is 147.418kg Patients height is 6ft 1in Calculated BMI is 42.9 08/09 H&P, Physical Exam, General: "Morbidly obese" Treatments: Healthy Heart diet, then NPO for surgery Please clarify if patients BMI indicates an additional diagnosis: [x] Morbid (Extreme) (severe) obesity [ ] No additional diagnosis/not clinically significant [ ] Other, please specify ____ [ ] Unable to determine Reference: NIH Classification for BMI Overweight BMI 2529.9 Obesity (Class 1) BMI 3034.9 Obesity (Class 2) BMI 3539.9 Morbid obesity (Class 3/Extreme/severe) BMI =40 MTDD
[2023-08-13 11:34] LABS: Glucose,Whole Blood 154 mg/dL (70-110)
--- NOTE | 2023-08-13 12:41 | P.PN ---
Subjective Progress Note Date: 08/13/23 Hospital course: Patient is a pleasant 52-year-old male with a past medical history of ankylosing spondylitis with chronic lower back pain, hypertension, hyperlipidemia, hypothyroidism, type II jve-jbekdws-npbjdwkta diabetes mellitus, and BPH. Patient presented to [facility] on 08/09/2023 with a chief complaint of acute on chronic lower back pain radiating into the left hip. Arrival to our facility, patient underwent evaluation in the emergency department. Vital signs upon arrival show blood pressure 146/93, heart rate 99, respiratory rate 18, temp 99.0 F, and SpO2 of 98% on room air. Labs completed and reviewed. CBC showing leukocytosis with WBC count of 31.4 and BMP showing hyponatremia with sodium of 133 and hyperglycemia with blood glucose of 198. Liver profile was unremarkable. Urinalysis negative for blood or infection. CT lumbar spine showing T12 inferior endplate loss of cortex possibly representing Schmutz node versus fracture, disc bulge at L3-L4 with severe spinal canal stenosis, and disc bulging at L2-L3 with possible central disc protrusion. Patient was admitted under our services with consultation to orthospine surgery team. MRI was completed and radiology report reviewed showing suspected acute Schmorl's node versus fracture of the inferior endplate of T12 with bony edema and reactive enhancement, edema in the L1 superior endplate, reactive edema in the L3-L4 and L4-L5 facet joints with some mild postcontrast reactive enhancement, L3-L4 and L4-L5 severe spinal canal stenosis secondary to disc bulging and narrowed thecal sac caliber with facet joint arthropathy, moderate to severe bilateral neuroforaminal stenosis at L4-L5, L2-L3 left subarticular disc protrusion without significant canal stenosis with mild to moderate neural foraminal stenosis bilaterally, and hyperdense cyst seen on CT his lower T2 signal. Physical exam: Patient seen and fully evaluated at bedside. He currently awaiting to be taken down for lumbar surgery later today. Family visiting at bedside. Patient reports continued pain with any movement and otherwise continues to deny having any complaints including chest pain, palpitations, shortness of breath, or experiencing any numbness/tingling/weakness to extremities or involuntary loss of bowel or bladder. Vital signs reviewed and stable. General: Nontoxic, no distress and appears stated age. Derm: Skin warm and dry, normal coloration for ethnicity. Small abrasion/scabbing to right upper extremity. No surrounding erythema, swelling, or drainage. Head: Atraumatic, normocephalic and symmetric. Eyes: EOMs intact, no lid lag, and anicteric sclera Mouth: no lip lesions, mucus membranes moist Cardiovascular: regular rate and rhythm with normal S1S2, no murmur, positive posterior tibial pulses bilaterally, and cap refill < 2 seconds. Lungs: Respirations even, regular, and unlabored on room air. Lungs CTA bilaterally, no rhonchi, no rales, no wheezing, and no accessory muscle usage. Abdominal: soft, nontender to palpation, no guarding, no appreciable organomegaly Ext: ROM intact. No gross muscle atrophy, no edema, no contractures Neuro: Speech clear, face symmetrical and CN II-XII grossly intact with no noted focal neuro deficits Psych: Alert and oriented to person, place, time, and situation. Appropriate and pleasant affect. Assessment and Plan of Care: Acute exacerbation of chronic lower back pain with left-sided sciatica Severe spinal canal stenosis of lumbar spine with reactive edema Rule out T12 fracture vs acute Schmorl's node Significant leukocytosis, possibly reactive Ankylosing spondylitis with chronic lower back pain -Continue with symptomatic care and pain management with Dilaudid 0.5 mg every 3 hours for moderate pain and 1 mg every 3 hours for severe pain. -Continue Decadron 6 mg IVP every 8 hours pending further recommendations from orthospine surgery team. -Orthospine surgery team following, discussed plan of care in depth with orthopedic SECURITY ADMINISTRATOR and patient scheduled to undergo L3-L5 decompression and fusion later today. -Continue Neurochecks every 4 hours and fall precautions in place. -PT/OT consulted Staphylococcus aureus bacteremia, unclear source possibly discitis versus osteomyelitis -Blood cultures positive for Staph aureus in 2 out of 2 sets resistance to azithromycin, clindamycin and erythromycin. Repeat blood culture drawn 08/11/2023 showing no growth to date. -Patient started on cefazolin 2 g every 8 hours IVPB -Infectious disease following, reviewed documentation in chart. Constipation Continue MiraLAX 17 g nightly and patient given a one-time dose of lactulose. Will monitor for resolution. TypeII diabetes mellitus with hyperglycemia -Hold Rybelsus and place patient on glycemic protocol with NovoLog sliding scale. Hypertension -Continue daily medication regimen with hydrochlorothiazide 25 mg daily losartan 100 mg daily. Hypothyroidism -Continue daily medication regimen with levothyroxine 125 mcg daily. Hyperlipidemia -Continue daily medication regimen with rosuvastatin 5 mg daily. BPH -Continue Flomax 0.8 mg daily. Data and imaging reviewed: -Morning labs reviewed. Labs completed and reviewed. CBC showing continued improvement of leukocytosis with WBC count decreasing from initial 31.4 down to 13.41 this morning. BMP unremarkable. Blood glucose 177. Magnesium normal findings at 2.2. Liver profile revealing hypoalbuminemia with albumin of 3.4 otherwise normal findings. -Blood cultures positive for Staph aureus in 2 out of 2 sets resistance to azithromycin, clindamycin and erythromycin. Repeat blood culture drawn 08/11/2023 showing no growth to date. -Vital signs reviewed. Blood pressure blood pressure 129/87, heart rate 75, respiratory rate 16, temp 97.7 F, and SpO2 of 95% on room air CODE STATUS: Full code DVT prophylaxis: Lovenox Anticipated discharge date: Pending clinical course Anticipated discharge place: Pending clinical course Patient was seen independently by Nurse Pracitioner. This document was prepared using GoPro dictation software. Please allow for errors in oral and maxillofacial surgery resident, while rare they do occur. I reviewed the documentation as provided by the TABATHA above, who is the original author of this note. I agree with the documented assessment and plan, with the following changes: none Objective - Vital Signs Vital signs: Vital Signs Temp 97.4 F L 08/13/23 02:00 Pulse 74 08/13/23 02:00 Resp 18 08/13/23 02:00 BP 139/87 08/13/23 02:00 Pulse Ox 96 08/13/23 02:00 FiO2 Intake & Output 08/12/23 08/13/23 08/13/23 18:59 06:59 18:59 Intake Total 0 Output Total 450 620 Balance -450 -620 Intake: Oral 0 Output: Urine 450 620 Other: Voiding Method Urinal Urinal # Voids 1 - Labs CBC & Chem 7: 08/14/23 03:05 08/14/23 03:05 Labs: Abnormal Lab Results - Last 24 Hours (Table) 08/12/23 08/12/23 08/12/23 Range/Units 04:09 04:09 12:05 WBC 16.08 H (4.50-10.00) X 10*3/uL RBC 4.28 L (4.40-5.60) X 10*6/uL Hgb 12.5 L (13.0-17.0) g/dL MCHC 30.9 L (32.0-37.0) g/dL BUN/Creatinine Ratio 30.50 H (12.00-20.00) Ratio Glucose 209 H (70-110) mg/dL POC Glucose (mg/dL) 220 H (70-110) mg/dL Calcium 8.6 L (8.7-10.3) mg/dL Total Bilirubin <0.2 L (0.3-1.2) mg/dL Total Protein 5.7 L (6.2-8.2) g/dL Albumin 3.4 L (3.8-4.9) g/dL Albumin/Globulin Ratio 1.48 L (1.60-3.17) Ratio 08/12/23 08/12/23 08/13/23 Range/Units 17:57 20:09 06:08 WBC (4.50-10.00) X 10*3/uL RBC (4.40-5.60) X 10*6/uL Hgb (13.0-17.0) g/dL MCHC (32.0-37.0) g/dL BUN/Creatinine Ratio (12.00-20.00) Ratio Glucose (70-110) mg/dL POC Glucose (mg/dL) 324 H 307 H 175 H (70-110) mg/dL Calcium (8.7-10.3) mg/dL Total Bilirubin (0.3-1.2) mg/dL Total Protein (6.2-8.2) g/dL Albumin (3.8-4.9) g/dL Albumin/Globulin Ratio (1.60-3.17) Ratio Microbiology - Last 24 Hours (Table) 08/11/23 08:24 Blood Culture - Preliminary Blood 08/09/23 16:45 Blood Culture Gram Stain - Final Blood Blood Culture - Final Staphylococcus aureus 08/09/23 16:30 Blood Culture Gram Stain - Final Blood Blood Culture - Final Staphylococcus aureus Molecular ID
--- NOTE | 2023-08-13 12:43 | P.PN ---
Subjective Progress Note Date: 08/13/23 Principal diagnosis: Reason for follow-up is MSSA bacteremia and discitis Patient is a 52-year-old male with multiple comorbidities including a lower back pain presented to hospital for worsening Back pain patient also have a positive blood culture with MSSA and abnormal MRI suspicious for discitis On today's evaluation that is 08/13/2023, the patient continues to be afebrile, the patient is on room air and breathing comfortably, the Pt denies having any chest pain or cough, the patient denies having any abdominal pain no vomiting or any diarrhea, still complaining of lower back pain but denies any worsening. Patient white count is down to 13.41, creatinine 0.5 blood culture repeat from 08/11/2023 so far negative Objective - Vital Signs Vital signs: Vital Signs Temp 97.7 F 08/13/23 08:02 Pulse 75 08/13/23 08:02 Resp 16 08/13/23 08:02 BP 129/87 08/13/23 08:02 Pulse Ox 95 08/13/23 08:02 FiO2 Intake & Output 08/12/23 08/13/23 08/13/23 18:59 06:59 18:59 Intake Total 0 Output Total 450 620 Balance -450 -620 Intake: Oral 0 Output: Urine 450 620 Other: Voiding Method Urinal Urinal # Voids 1 - Exam Middle-age male lying in bed in no distress Respiratory system unlabored breathing decreased breath sound the base Heart S1-S2 regular Abdominal soft no tenderness Extremities no edema feet Skin no rashes, no masses palpable Patient is awake alert oriented x 3 mood and affect is normal Exam compleetd with help of MOTORCYCLE SALES ASSOCIATE - Labs CBC & Chem 7: 08/13/23 03:08 08/13/23 03:08 Labs: Abnormal Lab Results - Last 24 Hours (Table) 08/12/23 08/12/23 08/12/23 Range/Units 04:09 04:09 12:05 WBC 16.08 H (4.50-10.00) X 10*3/uL RBC 4.28 L (4.40-5.60) X 10*6/uL Hgb 12.5 L (13.0-17.0) g/dL MCHC 30.9 L (32.0-37.0) g/dL MPV (9.5-12.2) FL BUN/Creatinine Ratio 30.50 H (12.00-20.00) Ratio Glucose 209 H (70-110) mg/dL POC Glucose (mg/dL) 220 H (70-110) mg/dL Calcium 8.6 L (8.7-10.3) mg/dL Total Bilirubin <0.2 L (0.3-1.2) mg/dL Total Protein 5.7 L (6.2-8.2) g/dL Albumin 3.4 L (3.8-4.9) g/dL Albumin/Globulin Ratio 1.48 L (1.60-3.17) Ratio 08/12/23 08/12/23 08/13/23 Range/Units 17:57 20:09 03:08 WBC 13.41 H (4.50-10.00) X 10*3/uL RBC 4.34 L (4.40-5.60) X 10*6/uL Hgb (13.0-17.0) g/dL MCHC (32.0-37.0) g/dL MPV 9.4 L (9.5-12.2) FL BUN/Creatinine Ratio (12.00-20.00) Ratio Glucose (70-110) mg/dL POC Glucose (mg/dL) 324 H 307 H (70-110) mg/dL Calcium (8.7-10.3) mg/dL Total Bilirubin (0.3-1.2) mg/dL Total Protein (6.2-8.2) g/dL Albumin (3.8-4.9) g/dL Albumin/Globulin Ratio (1.60-3.17) Ratio 08/13/23 Range/Units 06:08 WBC (4.50-10.00) X 10*3/uL RBC (4.40-5.60) X 10*6/uL Hgb (13.0-17.0) g/dL MCHC (32.0-37.0) g/dL MPV (9.5-12.2) FL BUN/Creatinine Ratio (12.00-20.00) Ratio Glucose (70-110) mg/dL POC Glucose (mg/dL) 175 H (70-110) mg/dL Calcium (8.7-10.3) mg/dL Total Bilirubin (0.3-1.2) mg/dL Total Protein (6.2-8.2) g/dL Albumin (3.8-4.9) g/dL Albumin/Globulin Ratio (1.60-3.17) Ratio Microbiology - Last 24 Hours (Table) 08/11/23 08:24 Blood Culture - Preliminary Blood 08/09/23 16:45 Blood Culture Gram Stain - Final Blood Blood Culture - Final Staphylococcus aureus 08/09/23 16:30 Blood Culture Gram Stain - Final Blood Blood Culture - Final Staphylococcus aureus Molecular ID Assessment and Plan (1) MSSA bacteremia Current Visit: Yes Status: Acute Code(s): R78.81 - BACTEREMIA; B95.61 - METHICILLIN SUSCEP STAPH INFCT CAUSING DIS CLASSD ELSWHR SNOMED Code(s): 317139419 (2) Lumbar discitis Current Visit: Yes Status: Acute Code(s): M46.46 - DISCITIS, UNSPECIFIED, LUMBAR REGION SNOMED Code(s): 202211349 (3) Leukocytosis Current Visit: Yes Status: Acute Code(s): D72.829 - ELEVATED WHITE BLOOD CELL COUNT, UNSPECIFIED SNOMED Code(s): 596725526 Plan: This is a telehealth visit 1patient with MSSA bacteremia in this patient who did have a chronic back pain with acute worsening and now with evidence of MSSA bacteremia abnormal CT/MRI possible discitis/osteomyelitis 2-blood cultures has been repeated document clearance of his bacteremia, with repeat blood cultures so far negative 3-patient is scheduled for surgery this afternoon 4-patient to continue with cefazolin 2 g every 8 hours will need a PICC line once he clears his bacteremia for outpatient IV antibiotic therapy Dictation was produced using SnapSense dictation software. please excuse any grammatical, word or spelling errors.
[2023-08-13] MEDS: ONDANSETRON 4 MG/2 ML VIAL IVP PRN (15:35)
[2023-08-13] MEDS: IV FLUID CONTINUATION 1,000 ML IV ONE ×4 (15:38→22:27)
[2023-08-13 15:40] LABS: Glucose,Whole Blood 157 mg/dL (70-110)
[2023-08-13] MEDS: LACTATED RINGERS 1,000 ML BAG IV STA (15:56)
--- NOTE | 2023-08-13 16:05 | P.PN ---
Progress Note - Text Progress Note Date: 08/13/23 Spine Surgery Clinical and Risk Review Reji Howard is a 52-year-old male presenting for evaluation of severe low back pain and lower extremity weakness. It was my pleasure to have seen and examined Reji Howard. In our visit today we have had a chance to go over subjective complaints, physical examination findings and treatments including the natural course history without intervention and various interventional options. The patients imaging demonstrates x-rays CT and MRI reviewed. This illustrates L3 to L5 spondylosis with grade 1 spondylolisthesis at these levels. There is severe spinal stenosis noted at L3-4 or L4 5. There is epidural mass effect from likely disc herniation however the patient's clinical condition and current bacteremia epidural phlegmon cannot be ruled out. Disc desiccation is no as well as facet arthrosis bilaterally which is severe. No acute fractures are noted no lesions. On physical exam, Reji Howard demonstrates demonstrates severe low back pain and inability to ambulate secondary to his pain. He has numbness and tingling that has started in his genital area which is resolved at this time. He has severe radicular pain down both legs in his thighs in the back of his legs. He has weakness in hip flexion bilaterally as well as 4 minus out of 5 strength in plantar flexion dorsiflexion. Sensation is intact with old over the L3 to L5 region. Good rectal tone. No urinary incontinence.. I have explained to the patient that as their condition progresses it will cause further neurological deficits and eventual paralysis. Based on the patients imaging, physical exam, and the rapid progression and disabling nature of their symptoms, at this time I recommend surgery in the form or a: L3 to L5 decompression and fusion. I discussed the risk and benefits of this procedure at length with Reji Howard. The patient agreed to considered pursuing the procedure abovementioned. Prior to surgery, she should follow up with her PCP (Cardio, ID, IM etc) for clearance. Questions were invited and answered, and the patient wishes to proceed as outlined below. Currently, I am recommendin. L3 to L5 decompression and fusion 2. Follow up with PCP for surgical clearance 3. Review of surgical risks and benefits as well as an educational packet on the proposed surgical procedure. Risks: All surgical procedures come with inherent risks, including those related to positioning, anesthesia, intraoperative findings, and postoperative complications. It is important to understand that surgery does not come with any guarantee of a successful outcome as complications and adverse events are always possible. The patient was given a handout in office today discussing the surgical procedure and risks associated with the intervention, both of which were discussed with the patient. These risks include but are not limited to the following: * Experiencing same, different or even worse symptoms in back, neck, arms, or legs compared to before surgery. * Requiring further surgery or other forms of treatment presently or at some time in the future at same or other levels of the intended spine surgery. * On an extreme but fortunately relatively rare basis severe complication such as blindness, stroke, heart attack, temporary and/or permanent nerve injury, paralysis, coma, or may occur, sometimes without known explanation. * Surgical complications may include but are not limited to risk of infection, fluid accumulation in the surgical dissection site, including a seroma or hematoma, that requires additional surgery, wound drainage, bleeding, new numbness or weakness, vision changes/loss, spinal fluid leakage, non-healing and/or infected incision, headaches, difficulty or inability to swallow, hoarseness, hemopneumothorax, pneumothorax, impotence, retrograde ejaculation, vaginal dryness; injury to nerves, spinal cord, blood vessels, lymphatics or other vital organs (i.e., bowel injury, injury to the great vessels); heterotopic bone formation; complications related to the hardware such as screws, rods, cages including misplaced hardware, device failure, instrumentation at the wrong spine level, hardware fracture/breakage, or hardware loosening; vertebral failure of the spinal column above or below the newly placed hardware; retained surgical instrumentations or devices and the need for further surgery. * Medical risks of the planned spine surgery include but are not limited to generalized Infections to the whole body or local areas outside of the surgical site (sepsis), heart attack, bleeding, anaphylaxis, meningitis, seizure, epilepsy, hearing loss, burn carlin, laceration of the head or other areas of the body, bruising, hypersensitivity of the skin, bladder over distension; allergic reaction; shoulder injury related to positioning; fat, blood and air clots to other areas of the body like heart, lungs, brain; failure of internal organs such as lungs, kidneys, liver and excessive bleeding. If blood transfusions are necessary, note that transfusions may cause intolerance reactions such as anaphylaxis or other complex reactions. * Despite best efforts, the results of spine surgery might not heal in terms of bone, soft tissues such as skin, fascia, ligaments, and joints. Additionally, in order to achieve best possible results, spine surgery may be carried out beyond the initially planned levels and involve decompression, fusion including insertion of hardware at levels other than the original intended area of surgical interest change some portions of the procedure in order to ensure the best possible outcomes. * With spine surgery and spinal fusion, there are different off label uses of instrumentation (devices, implants and hardware) as well as biological substances (bone morphogenic proteins, demineralized bone matrix) as well as using extra bone from allograft sources (i.e. cadaver bone) or autograft (iliac crest bone, ribs, or the spine itself). The patient has been given information about these practices and their inherent risks and benefits. The patient has had a chance to review all the listed information, has been given print outs detailing this information, and has had all his/her questions answered to their satisfaction. It was my pleasure to have seen and examined Reji Howard. In our visit today we have had a chance to go over my understanding of our patient's current condition, the natural course history without intervention and various interventional options. Questions were invited and answered, and the patient wishes to proceed as outlined above. I have seen and examined the patient for 25 minutes and we have spent more than 50% of the time in repeat and detailed counseling about the patient's condition, its natural course history with out and as much as can be predicted with surgery and re-review of various surgical treatment options. In conclusion, Reji Howard andboni at bedside requested we proceed with the above suggested surgery and are willing to accept risks and limitations of the suggested surgery as nature of the disease process and our best attempts at treatment for the condition. Thank you again for allowing us to be part of your patient's care. Please don't hesitate to contact me if you have any further questions. Signed and authenticated by: Vikas Browne [facility] [address], [address] [address]
--- NOTE | 2023-08-13 16:12 | CA ---
Transthoracic Echo Report Name: Reji Howard Age: 52 Gender: M : 1970 Exam Date: 08/13/2023 13:43 Exam Location: [facility] Ht (in): 73 Wt (lb): 325 Ordering Physician: [place] Attending/Referring Phys: Asset Protection Representative Maria Guadalupe Haney RDCS Procedure CPT: Indications: staph aureus bacteremia, r/o endocarditis Cardiac Hx: Technical Quality: Poor Contrast 1: Definity Total Dose (mL): 2 Contrast 2: Total Dose (mL): MEASUREMENTS (Male / Female) Normal Values 2D ECHO LV Diastolic Diameter PLAX 4.8 cm 4.2 - 5.9 / 3.9 - 5.3 cm LV Systolic Diameter PLAX 3.4 cm IVS Diastolic Thickness 1.3 cm 0.6 - 1.0 / 0.6 - 0.9 cm LVPW Diastolic Thickness 1.3 cm 0.6 - 1.0 / 0.6 - 0.9 cm LV Relative Wall Thickness 0.6 RV Internal Dim ED PLAX 2.8 cm LA Systolic Diameter LX 4.4 cm 3.0 - 4.0 / 2.7 - 3.8 cm LA Volume 77.1 cm??? 18 - 58 / 22 - 52 cm??? LA Volume Index 27.3 cm???/m??? 16 - 28 cm???/m??? M-MODE Aortic Root Diameter MM 3.5 cm LA Systolic Diameter MM 3.7 cm LA Ao Ratio MM 1.0 AV Cusp Separation MM 2.2 cm DOPPLER MV Area PHT 3.4 cm??? Mitral E Point Velocity 68.7 cm/s Mitral A Point Velocity 64.0 cm/s Mitral E to A Ratio 1.1 MV Deceleration Time 222.2 ms TR Peak Velocity 125.8 cm/s TR Peak Gradient 6.3 mmHg FINDINGS Left Ventricle Left ventricular ejection fraction is estimated at 55-60%. Mildly increased septal wall thickness. Left ventricular cavity size normal. No obvious regional wall motion abnormalities. Right Ventricle Normal right ventricular size and function. Right ventricular systolic pressure within normal limits. Right Atrium Mild right atrial dilatation. Left Atrium Mildly increased left atrial diameter. Moderately increased left atrial volume. Mitral Valve Structurally normal mitral valve. Trace mitral regurgitation. Aortic Valve Trileaflet aortic valve. No aortic valve stenosis or regurgitation. Tricuspid Valve Structurally normal tricuspid valve. Trace tricuspid regurgitation. Pulmonic Valve Structurally normal pulmonic valve. No pulmonic regurgitation. Trace pulmonic regurgitation. Pericardium No pericardial or pleural effusion. Aorta Aorta at upper limits of normal. CONCLUSIONS LVH with ejection fraction of 55% Previewed by: Dr. Gregg Akins MD (Electronically Signed) Final Date: 13 August 2023 16:11
[2023-08-13] MEDS ORDERED: SUCCINYLCHOLINE CHLORIDE 200 MG/10 ML VIAL IV ONE (16:18)
[2023-08-13] MEDS ORDERED: KETAMINE HCL IN 0.9 % NACL 50 MG/5 ML SYRINGE ONE (16:18)
[2023-08-13] MEDS ORDERED: LIDOCAINE 1% INJ 10MG/ML (20 ML MDV) ONE (16:18)
[2023-08-13] MEDS ORDERED: MIDAZOLAM 2 MG/2 ML VIAL ONE (16:18)
[2023-08-13] MEDS ORDERED: TRANEXAMIC 1,000 MG/100ML-NACL PREMIX BAG ONE (16:18)
[2023-08-13] MEDS ORDERED: ROCURONIUM 10 MG/ML (5 ML VIAL) IV ONE (16:18)
[2023-08-13] MEDS ORDERED: fentaNYL (PF) 50 MCG/ML 2 ML AMP ONE (16:18)
[2023-08-13] MEDS ORDERED: HYDROmorphone (PF) 1 MG/ML ONE (16:18)
[2023-08-13] MEDS ORDERED: PROPOFOL 10 MG/ML 20 ML VIAL IV ONE (16:18)
[2023-08-13] MEDS: THROMBIN (BOVINE) 5,000 UNIT VIAL TOPICAL ONE (17:10)
[2023-08-13] MEDS: LACTATED RINGERS 1,000 ML IV ONE ×2 (18:13→20:42)
[2023-08-13] MEDS: GENTAMICIN 80 MG in SODIUM CHLORIDE 0.9% IRRIGATIO 3,000 ML IRRIGATION ONE (18:35)
[2023-08-13] MEDS: ceFAZolin 3,000 MG in SODIUM CHLORIDE 0.9% IRRIGATIO 3,000 ML IRRIGATION ONE (18:36)
[2023-08-13] MEDS: VANCOMYCIN 1,000 MG VIAL MISCELLANE ONE (20:20)
--- NOTE | 2023-08-13 20:51 | XR ---
Findings/ Impression: Intraoperative/procedural fluoroscopic services were provided. Total fluoroscopy time is 27.6 seconds with a total of 4 submitted images to PACS. Please see the operative/procedural note for further details. DAP: 14.19 mGym2
[2023-08-13] MEDS ORDERED: oxyCODONE-APAP 5-325MG 1 EACH TAB PO PRN (20:59)
[2023-08-13] MEDS: DEXAMETHASONE SOD PHOSPHATE 10 MG/ML 1 ML VIAL IVP SCH (22:30)
[2023-08-14 03:45] LABS: ALT 28 U/L (4-49); AST 19 U/L (17-59); African American GFR (CKD) >90 (>60 ml/min/1.73 sqM); Albumin 2.9 g/dL (3.5-5.0); Albumin/Globulin Ratio 1.3; Alkaline Phosphatase 50 U/L (38-126); Anion Gap 4 mmol/L; Blood Urea Nitrogen 21 mg/dL (9-20); Calcium 8.4 mg/dL (8.4-10.2); Carbon Dioxide 25 mmol/L (22-30); Chloride 102 mmol/L (98-107); Globulin 2.3 g/dL; Glucose 173 mg/dL (74-99); Magnesium 2.2 mg/dL (1.6-2.3); Non-African American GFR(CKD) >90 (>60 ml/min/1.73 sqM); Potassium 4.3 mmol/L (3.5-5.1); Sodium 131 mmol/L (137-145); Total Bilirubin 0.7 mg/dL (0.2-1.3); Total Protein 5.2 g/dL (6.3-8.2)
[2023-08-14 04:08] LABS: C Reactive Protein 3.3 mg/dL (<1.0)
[2023-08-14 05:42] LABS: Glucose,Whole Blood 168 mg/dL (70-110)
[2023-08-14] MEDS: HYDROcodone/APAP 10-325MG 1 EACH TAB PO PRN (08:08)
--- NOTE | 2023-08-14 08:28 | P.OP ---
Date of Procedure: 08/13/23 Preoperative Diagnosis: Current Active Problems Spondylolisthesis, lumbar region (Acute) Lumbar stenosis with neurogenic claudication (Acute) Septic arthritis of lumbar spine (Acute) Epidural abscess (Acute) Lumbar discitis (Acute) Stenosis, spinal, lumbar (Acute) Leukocytosis (Acute) Acute exacerbation of chronic low back pain (Acute) MSSA bacteremia (Acute) Postoperative Diagnosis: Current Active Problems Spondylolisthesis, lumbar region (Acute) Lumbar stenosis with neurogenic claudication (Acute) Septic arthritis of lumbar spine (Acute) Epidural abscess (Acute) Lumbar discitis (Acute) Stenosis, spinal, lumbar (Acute) Leukocytosis (Acute) Acute exacerbation of chronic low back pain (Acute) MSSA bacteremia (Acute) Procedure(s) Performed: 1. L3-4 POSTEROLATERAL AND INTERBODY FUSION 2. L4-5 POSTEROLATERAL AND INTERBODY FUSION 3. EPIDURAL MASS EVACUATION 4. L3-5 SEGMENTAL INSTRUMENTATION 5. L3-4 AND L4-5 BILATERAL LAMINECTOMY, COMPLETE FACETECOMTY, FORAMINOTOMY, DECOMPRESSION 6. INSERTION OF BIOMECHANICAL DEVICES X2 CAGES L3-4 AND L4-5 7. USE OF [employer] NAVIGATION FOR SCREW PLACEMENT USE OF [facility] CPTMOD 22 THIS CASE TOOK 75% LONGER THAN EXPECTED DUE TO CORMORBID CONDITIONS, HIGH BMI >40, EXTENT OF LUMBAR DISEASE AND HIGH TECHNICALITY OF THE CASE. Implants: -[employer] RODS AND SCREWS -GLOBUS SABLE CAGES X2 12 MM 10-17 LONG -MAGNATOS (L); CONTOUR (R), ALLOCELL, ARTHROCELL, AUTOGRAFT Anesthesia: GETA Surgeon: Vikas Ruffin Yeast Tender #1: Soila Slaughter (Soila Slaughter NP Was present and assisted with all aspects of the case from positioning to dressing placement) Estimated Blood Loss (ml): 550 IV fluids (ml): 2,500 Urine output (ml): 2,000 Pathology: none sent Condition: stable Disposition: PACU Indications for Procedure: Reji Howard is a 52-year-old male presenting for evaluation of severe low back pain and lower extremity weakness. It was my pleasure to have seen and examined Reji Howard. In our visit today we have had a chance to go over subjective complaints, physical examination findings and treatments including the natural course history without intervention and various interventional options. The patients imaging demonstrates x-rays CT and MRI reviewed. This illustrates L3 to L5 spondylosis with grade 1 spondylolisthesis at these levels. There is severe spinal stenosis noted at L3-4 or L4 5. There is epidural mass effect from likely disc herniation however the patient's clinical condition and current bacteremia epidural phlegmon cannot be ruled out. Disc desiccation is no as well as facet arthrosis bilaterally which is severe. No acute fractures are noted no lesions. On physical exam, Reji Howard demonstrates demonstrates severe low back pain and inability to ambulate secondary to his pain. He has numbness and tingling that has started in his genital area which is resolved at this time. He has severe radicular pain down both legs in his thighs in the back of his legs. He has weakness in hip flexion bilaterally as well as 4 minus out of 5 strength in plantar flexion dorsiflexion. Sensation is intact with old over the L3 to L5 region. Good rectal tone. No urinary incontinence.. I have explained to the patient that as their condition progresses it will cause further neurological deficits and eventual paralysis. Based on the patients imaging, physical exam, and the rapid progression and disabling nature of their symptoms, at this time I recommend surgery in the form or a: L3 to L5 decompression and fusion. I discussed the risk and benefits of this procedure at length with Reji Howard. The patient agreed to considered pursuing the procedure abovementioned. Prior to surgery, she should follow up with her PCP (Cardio, ID, IM etc) for clearance. Questions were invited and answered, and the patient wishes to proceed as outlined below. Currently, I am recommendin. L3 to L5 decompression and fusion Description of Procedure: L3-5 OPEN DECOMPRESSION AND FUSION, FACET ABSCESS (REGIS) The patient was seen and examined in the preoperative area. All preoperative protocols were followed. Informed consent was obtained, risks and benefits of the procedure were discussed at length. Risks including bleeding infection damage to the surrounding tissue and risk of reoperation were discussed with the patient. Risk of anesthesia up to and including was discussed with the patient. These are outlined in the risk review. They were willing to accept these risks and all the risks of surgery. The patient was given a weight-based dose of antibiotics in the form of 2 g Ancef. The patient was seen and evaluated by the anesthesia team who deemed them fit for surgery. The site was marked, the patient was willing to proceed with the procedure. The patient was transferred to the operative suite by the Department of anesthesia. They were then drifted off to sleep by the department anesthesia and GETA was performed. The patient tolerated this well. Spicer catheter was placed by nursing staff, a-traumatically. Once confirmation of lines and ventilation the patient was transferred to a prone Shon table very carefully. All bony prominences including wrists, elbows, axilla, chest, hips, and thighs, and feet were padded very well. Special attention was paid to the genitalia, and these were padded accordingly. SCDs were placed on bilateral lower extremities and were connected. Arms were well padded and placed on arm boards up and out in the 90/90 position. Once in position, again we confirmed good ventilation capabilities and that lines were running appropriately. The patients Lumbar spine was then exposed. 1010s were placed outlining the incision site. Standard alcohol was used to clean the incision site and allowed to dry. C-arm was used to needle localize the pedicles at L4-S1 and bio-chance the patient and confirm level for incision which was marked with a skin marker. Operative briefing was performed with all teams and everyone in agreement to proceed. The patient was then prepped and draped in a normal sterile fashion. Timeout was then performed, and all parties agreed with the procedure to be performed. Midline skin incision was made over the previously bio-marked area and dissection taken down over the SP of L2-5. L3-5 was taken out over facet joints and TPs and a penfield 4 used to chance the L4 pedicle. On dissection of the facet joints and TPs on the right at L4-5 there was encountered a large amount of purulent material about the facet joint and above it in the muscle. This was cultured and evacuated. The muscle area and abscessed area was resected and this traveled down to the facet joints at L4-5 as well which were also filled with purulent material. This was also cultured and sent. Further dissection of the area revealed another abscess about the facets on the left at L4-5 and just above midline at L5-S1 in the muscle. All of these abscesses were evacuated and resected. Muscle in the area was resected, and necrotic tissues removed as well. Cultures were made of the area. After exposure was complete along with these reactions we confirmed levels for operation. The wound was copiously irrigated before screw placement with antibiotic solution as well as NSS. Lateral image used to confirm levels. Once confirmed, screws were proceeded to be placed b/l at pedicles from L3-5 using [employer]. An SP clamp was used, 3D C arm spin obtained and confirmed to be accurate. Once this was confirmed screws were placed using a navigated jose, navigated awl-tap and navigated commercial driver's license driver. Once screws were placed they were confirmed to be in good position using AP and Lateral fluoroscopy. The wound was then irrigated. Screws were tested and all tested above 20 mA. We then proceeded to decompression and cage placement. Attention was then turned to decompression, evacuation of epidural space and interbody fusion at L4-5. Bilateral laminectomy, complete facetectomy and foraminotomy performed at L4-5 using high speed jose and Kerrison rongeur. The ligamentum was removed and the dural sac decompressed. Exiting and traversing roots visualized and decompressed. Neural elements were then protected, there was exuberant scar tissue formation around this area, as well as anterior scarring of the dura. This was carefully removed and the thecal sac mobilized over the disc space. The disc was very poorly constituted and resembled a chalk-like material similar to a gout-like appearance or even CRPP. The space itself did not have any purulent material in it, but it is suspected based on the scarring and type of tissues here that there was an epidural abscess at some point. The disc space was then accessed with an osteotome. Sequential shaving then done under lateral imaging and complete discectomy performed using shahriar, pituitary and curette. Once good bleeding endplates accomplished and good height latter-day with trials, a combination of autograft, allograft and synthetic placed anterior in the disc space. The cage was then selected and impacted into place under lateral imaging. The cage was then expanded restoring height, lordosis and alignment. The cage was backfilled with bone graft through a funnel. The vault installer was removed and the area inspected. Good cage placement, stable cage and no injuries. Area was irrigated copiously, and meticulous hemostasis achieved. The tubular retractor was then removed under direct visualization. Attention was then turned to interbody fusion at L3-4. Decompression was again done via bilateral laminectomy, complete facetectomy and foraminotomy performed at L3-4 using high speed jose and Kerrison rongeur. The ligamentum was removed and the dural sac decompressed. Exiting and traversing roots visualized and decompressed. There was less scar tissues at this level, but still the thickened tissues surrounding the thecal sac and anteriorly on the disc space. These tissues along with tissues from L4-5 were sent for cultures and pathology as well. We also sent all harvested disc material from L3-4 and L4-5 for evaluation due to the unnatural nature of their constitution. Neural elements were then protected at L3-4, and disc space accessed with an osteotome. Vertebral body osteotomy was done here due to Sequential shaving t hen done under lateral imaging and complete discectomy performed using shahriar, pituitary and curette. Once good bleeding endplates accomplished and good height latter-day with trials, a combination of autograft, allograft and synthetic placed anterior in the disc space. The cage was then selected and impacted into place under lateral imaging. The cage was then expanded restoring height, lordosis and alignment. The cage was backfilled with bone graft through a funnel. The vault installer was removed and the area inspected. Good cage placement, stable cage and no injuries. Area was irrigated copiously, and meticulous hemostasis achieved. The wound and disc spaces were irrigated and meticulous hemostasis achieved. Rods were then sized and selected and placed into L5 screws b/l. Set screws locked these in place and then sequentially reduced into L3 and L4 b/l for alignment latter-day. This was accomplished. Set screws were then all placed and final tightened. A cross link was selected and placed and final tightened. TPs were then decorticated with a high speed jose. The wound was irrigated with 3L Ancef irrigation, 3L gentamicin irrigation, 1L Irricept, 2L betadine solution and 3L NSS. Surgery was placed over the dura. Autograft and MagnatOs then placed in the posterolateral gutters and impacted into place. Deep drain placed and secured to the skin. Final images confirmed go od placement of hardware and good reduction of listhesis as well as latter-day of height and lordosis. Fascia was then closed with #1 PDS. Deep subq closed with 0 Vicryl. Superficial subq closed with 2-0 Vicryl and skin with fred. Wound edges approximated very well. Wound was then cleaned with alcohol and dried. Wounds dressed with Optifoam dressings. The patient was then transferred off the table back to their hospital bed a- traumatically. They were extubated by the department of anesthesia. They were then transferred to PACU in stable condition having tolerated the procedure with no complications.
[2023-08-14 08:47] LABS: HCT 38.4 % (39.6-50.0); HGB 12.1 g/dL (13.0-17.0); MCHC 31.5 g/dL (32.0-37.0); MCV 92.1 FL (80.0-97.0); Mean Platelet Volume 9.3 FL (9.5-12.2); NRBC Per 100 WBC 0 X 10*3/uL (0.00-0.01); Platelet Count 269 X 10*3/uL (140-440); RBC 4.17 X 10*6/uL (4.40-5.60); RDW 13.8 % (11.5-14.5)
--- NOTE | 2023-08-14 09:10 | CT ---
EXAMINATION TYPE: CT lumbar spine wo con DATE OF EXAM: 08/14/2023 COMPARISON: 08/09/2023 HISTORY: s/p L3-L5 decompression and fusion CT DLP: 1828.[address] of the lumbar spine was performed. Bone and soft tissue window settings are submitted as well as coronal and sagittal reconstructions. L1-L2: Normal disc space height. No disc herniation protrusion or central stenosis. No facet joint arthropathy. No evidence for foraminal encroachment. L2-L3: Normal disc space height. No disc herniation protrusion or central stenosis. No facet joint arthropathy. No evidence for foraminal encroachment. L3-L4: Decompressive laminectomy with pedicular screws in place and intervertebral body spacer noted. Postsurgical soft tissue changes present. Postoperative alignment is near-anatomic. L4-L5: Decompressive laminectomy with pedicular screws in place and intervertebral body spacer noted. Postsurgical soft tissue changes present. Postoperative alignment is near-anatomic. L5-S1: Normal disc space height. No disc herniation protrusion or central stenosis. No facet joint arthropathy. No evidence for foraminal encroachment. No paraspinal masses are identified. Lumbar segments are free if fracture. IMPRESSION: 1. Postoperative changes at L3-4 and L4-5 as discussed.
--- NOTE | 2023-08-14 09:15 | P.PN ---
Subjective Progress Note Date: 08/14/23 Principal diagnosis: Intractable low back pain Patient seen and examined this morning. Patient is resting comfortably in bed. Patient states he has been nervous to move. Educated patient on the importance of early activity and ambulation. Educated on the technique of log-rolling to get out of bed. Discussed that physical therapy will be in to work with him today. Patient is to be fitted for LSO brace today. He continues to deny any numbness or tinging to the lower extremities. He does state improvement to his low back pain since the procedure. He states it is difficult at this time to assess improvement of the left lower extremity due to his inactivity. He does state he can tell that his pain is different. Patient is looking forward to working with PT today. Surgical incision to the posterior lumbar spine, dressing is clean dry and intact with Hemovac present. Continue to encourage increase of patient's activity as tolerated and to be up in chair for all meals. No acute concerns at this time. Objective - Vital Signs Vital signs: Vital Signs Temp 97.5 F L 08/13/23 22:39 Pulse 97 08/14/23 00:55 Resp 16 08/14/23 00:55 BP 109/70 08/14/23 00:55 Pulse Ox 95 08/14/23 00:55 FiO2 Intake & Output 08/13/23 08/14/23 08/14/23 18:59 06:59 18:59 Intake Total 2952 1200 Output Total 3370 Balance 2952 -2170 Intake: IV 2752 1200 Intake, IV Titration 200 Amount IV Fluid Continuation 1, 200 000 ml @ 0 mls/hr IV .[facility] Rx#:[id number] Output: Drainage 220 Right Lower Posterior 220 Back Urine 2600 Estimated Blood Loss 550 Other: Voiding Method Urinal Indwelling Catheter - Exam General: The patient is awake and alert, in no acute distress. Skin: Skin is warm and dry with no obvious rashes or lesions. Surgical incision to the lumbar spine, dressing is clean dry and intact with Hemovac present with documented to 20 mL output overnight. Eye: Pupils are equal, round and reactive to light, extra-ocular movements are intact; there is normal conjunctiva bilaterally. Neck: The neck is supple, there is no tenderness and ROM intact. Gastrointestinal: Soft, non-distended, non-tender abdomen. Back: There is no tenderness to palpation in the midline, paralumbar, parathoracic or buttocks region. There is no obvious deformity. Musculoskeletal: ROM limited secondary to pain and stiffness. Right: Shoulder abduction 5/5, elbow flexors 5/5, wrist dorsiflexors 5/5. finger abductor 5/5, census taker 5/5, hip flexor 5/5, knee flexor 5/5, ankle dorsiflexor 5/5, ankle plantarflexion 5/5 and extensor hallucis 5/5. Left: Shoulder abduction 5/5, elbow flexors 5/5, wrist dorsiflexors 5/5. finger abductor 5/5, census taker 5/5, hip flexor 4/5, knee flexor 5/5, ankle dorsiflexor 5/5, ankle plantarflexion 5/5 and extensor hallucis 5/5. Neurological: CN 2-12 intact. There are no obvious motor or sensory deficits. Movement and coordination equal and intact. Sensory exam to light touch intact C5-T1 and intact from L2-S1. Reflexes 2/4 in bilateral upper and lower ext remities. Negative Hoffmans, babinski, and clonus signs. Psychiatric: Cooperative, appropriate mood & affect, normal judgment. - Labs CBC & Chem 7: 08/14/23 03:05 08/14/23 03:05 Labs: Abnormal Lab Results - Last 24 Hours (Table) 08/13/23 08/13/23 08/13/23 Range/Units 03:08 03:08 11:33 WBC 13.41 H (4.50-10.00) X 10*3/uL RBC 4.34 L (4.40-5.60) X 10*6/uL MPV 9.4 L (9.5-12.2) FL Sodium (137-145) mmol/L BUN (9-20) mg/dL Creatinine 0.5 L (0.6-1.5) mg/dL BUN/Creatinine Ratio 29.80 H (12.00-20.00) Ratio Glucose 177 H (70-110) mg/dL POC Glucose (mg/dL) 154 H (70-110) mg/dL Calcium 8.5 L (8.7-10.3) mg/dL Total Bilirubin 0.2 L (0.3-1.2) mg/dL C-Reactive Protein (<1.0) mg/dL Total Protein 5.6 L (6.2-8.2) g/dL Albumin 3.4 L (3.8-4.9) g/dL Albumin/Globulin Ratio 1.55 L (1.60-3.17) Ratio 08/13/23 08/14/23 08/14/23 Range/Units 15:33 03:05 05:41 WBC (4.50-10.00) X 10*3/uL RBC (4.40-5.60) X 10*6/uL MPV (9.5-12.2) FL Sodium 131 L (137-145) mmol/L BUN 21 H (9-20) mg/dL Creatinine 0.65 L (0.6-1.5) mg/dL BUN/Creatinine Ratio (12.00-20.00) Ratio Glucose 173 H (70-110) mg/dL POC Glucose (mg/dL) 157 H 168 H (70-110) mg/dL Calcium (8.7-10.3) mg/dL Total Bilirubin (0.3-1.2) mg/dL C-Reactive Protein 3.3 H (<1.0) mg/dL Total Protein 5.2 L (6.2-8.2) g/dL Albumin 2.9 L (3.8-4.9) g/dL Albumin/Globulin Ratio (1.60-3.17) Ratio Microbiology - Last 24 Hours (Table) 08/13/23 20:15 Gram Stain - Preliminary Back 08/11/23 08:24 Blood Culture - Preliminary Blood 08/12/23 04:09 Blood Culture - Preliminary Blood Assessment and Plan Assessment: Postop day 1: L3-L5 decompression and fusion with evacuation of epidural mass and facet abscess. 1. Acute on Chronic low back pain 2. Lumbar spondylosis with severe stenosis 3. L2-L3 left paracentral HNP 4. L3-L4 HNP with severe spinal stenosis 5. L4-L5 facet hypertrophy with severe stenosis 6. Left lower extremity radiculopathy 7. Multiple comorbidities Plan: -Appreciate employee relations consultant and team management. -Activity: Ambulate QID, OOB all meals, up and about, limit lifting bending twisting to less than 5 lbs. Use walker or cane if needed for stability. -Daily PT/OT, increase ambulation strength and balance. -Brace when up and about, not needed in bed or chair - Patient to be fitted for LSO brace today -Pain control: Adequate at this time -Meds: reviewed -GI ppx: senna, Miralax -HARJIT asher this morning -DVT PPX: Heparin -Hygiene: Shower today. Maintain dressing clean and dry. Meticulous cleaning after BMs away from the incision site -Drains: Maintain for now. Continue to monitor and record output q shift. -Encourage IS 10x/hr -Dispo: Clinically pending *I reviewed and discussed this case with my attending Dr. Ruffin, whom has reviewed this chart and films and is in agreement with assessment and plan of care as outlined above. I have personally seen and examined the patient, performed the documentation and the assessment and plan as written. Number of minutes spent on the visit: 20m.
[2023-08-14 10:17] LABS: Erythrocyte Sedimentation Rate 38 mm/Hr (0-20)
[2023-08-14 11:53] LABS: Glucose,Whole Blood 282 mg/dL (70-110)
[2023-08-14] MEDS: LACTULOSE 20 GM/30 ML CUP PO ONE (13:47)
--- NOTE | 2023-08-14 14:04 | P.PN ---
Subjective Progress Note Date: 08/14/23 Hospital course: Patient is a pleasant 52-year-old male with a past medical history of ankylosing spondylitis with chronic lower back pain, hypertension, hyperlipidemia, hypothyroidism, type II [id number] diabetes mellitus, and BPH. Patient presented to [facility] on 08/09/2023 with a chief complaint of acute on chronic lower back pain radiating into the left hip. Arrival to our facility, patient underwent evaluation in the emergency department. Vital signs upon arrival show blood pressure 146/93, heart rate 99, respiratory rate 18, temp 99.0 F, and SpO2 of 98% on room air. Labs completed and reviewed. CBC showing leukocytosis with WBC count of 31.4 and BMP showing hyponatremia with sodium of 133 and hyperglycemia with blood glucose of 198. Liver profile was unremarkable. Urinalysis negative for blood or infection. CT lumbar spine showing T12 inferior endplate loss of cortex possibly representing Schmutz node versus fracture, disc bulge at L3-L4 with severe spinal canal stenosis, and disc bulging at L2-L3 with possible central disc protrusion. Patient was admitted under our services with consultation to orthospine surgery team. MRI was completed and radiology report reviewed showing suspected acute Schmorl's node versus fracture of the inferior endplate of T12 with bony edema and reactive enhancement, edema in the L1 superior endplate, reactive edema in the L3-L4 and L4-L5 facet joints with some mild postcontrast reactive enhancement, L3-L4 and L4-L5 severe spinal canal stenosis secondary to disc bulging and narrowed thecal sac caliber with facet joint arthropathy, moderate to severe bilateral neuroforaminal stenosis at L4-L5, L2-L3 left subarticular disc protrusion without significant canal stenosis with mild to moderate neural foraminal stenosis bilaterally, and hyperdense cyst seen on CT his lower T2 signal. Blood cultures positive for Staphylococcus aureus bacteremia concerning for septic arthritis of lumbar spine with epidural abscess and lumbar discitis. On 08/13/2023 orthospine surgery took patient for L3-L4 and L4-L5 posterior lateral and interbody fusion, epidural mass evacuation, L3-L5 segmental instrumentation, and L3-L4 and L4-L5 bilateral laminectomy with complete facetectomy, foraminotomy decompression, and insertion of biomechanical devices x 2 cages L3-L4 and L4-L5. Physical exam: Patient seen and fully evaluated at bedside. He is postoperative day 1 and appears to be doing well. Patient working with PT/OT at bedside at this time. He currently denies having any numbness/tingling/weakness at this time. He reports postoperative pain is currently controlled and denies any difficulties with urination. Patient does report reported continued constipation. Vital signs review and appears to be doing well.ed and stable. General: Nontoxic, no distress and appears stated age. Derm: Skin warm and dry, normal coloration for ethnicity. Small abrasion/scabbing to right upper extremity. No surrounding erythema, swelling, or drainage. Head: Atraumatic, normocephalic and symmetric. Eyes: EOMs intact, no lid lag, and anicteric sclera Mouth: no lip lesions, mucus membranes moist Cardiovascular: regular rate and rhythm with normal S1S2, no murmur, positive posterior tibial pulses bilaterally, and cap refill < 2 seconds. Lungs: Respirations even, regular, and unlabored on room air. Lungs CTA bilaterally, no rhonchi, no rales, no wheezing, and no accessory muscle usage. Abdominal: soft, nontender to palpation, no guarding, no appreciable organomegaly. Postoperative dressing clean, dry, and intact to lumbar spine with drain in place. Ext: ROM intact. No gross muscle atrophy, no edema, no contractures Neuro: Speech clear, face symmetrical and CN II-XII grossly intact with no noted focal neuro deficits Psych: Alert and oriented to person, place, time, and situation. Appropriate and pleasant affect. Assessment and Plan of Care: Septic arthritis of lumbar spine with epidural abscess and lumbar discitis Staphylococcus aureus bacteremia, secondary to above Acute exacerbation of chronic lower back pain with left-sided sciatica Severe spinal canal stenosis of lumbar spine with reactive edema secondary to septic arthritis with epidural abscess and lumbar discitis Rule out T12 fracture vs acute Schmorl's node Significant leukocytosis, possibly reactive Ankylosing spondylitis with chronic lower back pain -Continue with symptomatic care and pain management with Dilaudid 0.5 mg every 3 hours for moderate pain and 1 mg every 3 hours for severe pain. -Continue Decadron 4 mg IVP every 6 hours as managed by orthospine surgery team. -Orthospine surgery team following and took patient for extensive lumbar surgery with interbody fusion, epidural mass evacuation, bilateral laminectomy with complete facetectomy, foraminotomy decompression, and instrumental insertion of biomechanical cages on 08/13/2023. -Postoperative management of dressing, drain, progression of activity, pain management, PT/OT, and DVT prophylaxis per orthospine surgery team. -Continue Neurochecks every 4 hours and fall precautions in place. -PT/OT consulted -Blood cultures positive for Staph aureus in 2 out of 2 sets resistance to azithromycin, clindamycin and erythromycin. Repeat blood culture drawn 08/11/2023 showing no growth to date. -Continue cefazolin 2 g every 8 hours IVPB -Infectious disease following, reviewed documentation in chart. Constipation Increased MiraLAX 17 g daily and patient given an additional dose of lactulose. Will monitor for resolution. TypeII diabetes mellitus with hyperglycemia -Hold Rybelsus and place patient on glycemic protocol with NovoLog sliding scale. Hypertension -Continue daily medication regimen with hydrochlorothiazide 25 mg daily losartan 100 mg daily. Hypothyroidism -Continue daily medication regimen with levothyroxine 125 mcg daily. Hyperlipidemia -Continue daily medication regimen with rosuvastatin 5 mg daily. BPH -Continue Flomax 0.8 mg daily. Data and imaging reviewed: -Morning labs reviewed. Labs completed and reviewed. CBC leukocytosis with WBC count of 20.20 and hemoglobin of 12.1. ESR elevated at 38. BMP showing hyponatremia with sodium 131, BUN 21, creatinine 0.65, GFR greater than 90. Blood glucose 173. Magnesium 2.2. Liver profile showing hypoalbuminemia with albumin of 2.9 otherwise normal findings. CRP was elevated at 3.3. -Blood cultures positive for Staph aureus in 2 out of 2 sets resistance to azithromycin, clindamycin and erythromycin. Repeat blood culture drawn 08/11/2023 showing no growth to date. -Vital signs reviewed. Blood pressure blood pressure 113/74, heart rate 95, respiratory rate 17, temp 98.3 F, and SpO2 of 93% on room air. CODE STATUS: Full code DVT prophylaxis: MIGEL hose and SCDs Anticipated discharge date: Pending clinical course Anticipated discharge place: Pending clinical course Patient was seen independently by Nurse Pracitioner. This document was prepared using [employer] dictation software. Please allow for errors in outpatient coder, while rare they do occur. I reviewed the documentation as provided by the TABATHA above, who is the original author of this note. I agree with the documented assessment and plan, with the following changes: none Objective - Vital Signs Vital signs: Vital Signs Temp 98.3 F 08/14/23 07:15 Pulse 95 08/14/23 07:15 Resp 17 08/14/23 07:15 BP 113/74 08/14/23 07:15 Pulse Ox 93 L 08/14/23 07:15 FiO2 Intake & Output 08/13/23 08/14/23 08/14/23 18:59 06:59 18:59 Intake Total 2952 1200 Output Total 3370 Balance 2952 -2170 Intake: IV 2752 1200 Intake, IV Titration 200 Amount IV Fluid Continuation 1, 200 000 ml @ 0 mls/hr IV .[employer] [facility] [facility] Rx#:[id number] Output: Drainage 220 Right Lower Posterior 220 Back Urine 2600 Estimated Blood Loss 550 Other: Voiding Method Urinal Indwelling Catheter - Labs CBC & Chem 7: 08/16/23 07:30 08/16/23 07:30 Labs: Abnormal Lab Results - Last 24 Hours (Table) 08/13/23 08/13/23 08/13/23 Range/Units 03:08 03:08 11:33 WBC 13.41 H (4.50-10.00) X 10*3/uL RBC 4.34 L (4.40-5.60) X 10*6/uL Hgb (13.0-17.0) g/dL Hct (39.6-50.0) % MCHC (32.0-37.0) g/dL MPV 9.4 L (9.5-12.2) FL Sodium (137-145) mmol/L BUN (9-20) mg/dL Creatinine 0.5 L (0.6-1.5) mg/dL BUN/Creatinine Ratio 29.80 H (12.00-20.00) Ratio Glucose 177 H (70-110) mg/dL POC Glucose (mg/dL) 154 H (70-110) mg/dL Calcium 8.5 L (8.7-10.3) mg/dL Total Bilirubin 0.2 L (0.3-1.2) mg/dL C-Reactive Protein (<1.0) mg/dL Total Protein 5.6 L (6.2-8.2) g/dL Albumin 3.4 L (3.8-4.9) g/dL Albumin/Globulin Ratio 1.55 L (1.60-3.17) Ratio 08/13/23 08/14/23 08/14/23 Range/Units 15:33 03:05 03:05 WBC 20.20 H (4.50-10.00) X 10*3/uL RBC 4.17 L (4.40-5.60) X 10*6/uL Hgb 12.1 L (13.0-17.0) g/dL Hct 38.4 L (39.6-50.0) % MCHC 31.5 L (32.0-37.0) g/dL MPV 9.3 L (9.5-12.2) FL Sodium 131 L (137-145) mmol/L BUN 21 H (9-20) mg/dL Creatinine 0.65 L (0.6-1.5) mg/dL BUN/Creatinine Ratio (12.00-20.00) Ratio Glucose 173 H (70-110) mg/dL POC Glucose (mg/dL) 157 H (70-110) mg/dL Calcium (8.7-10.3) mg/dL Total Bilirubin (0.3-1.2) mg/dL C-Reactive Protein 3.3 H (<1.0) mg/dL Total Protein 5.2 L (6.2-8.2) g/dL Albumin 2.9 L (3.8-4.9) g/dL Albumin/Globulin Ratio (1.60-3.17) Ratio 08/14/23 Range/Units 05:41 WBC (4.50-10.00) X 10*3/uL RBC (4.40-5.60) X 10*6/uL Hgb (13.0-17.0) g/dL Hct (39.6-50.0) % MCHC (32.0-37.0) g/dL MPV (9.5-12.2) FL Sodium (137-145) mmol/L BUN (9-20) mg/dL Creatinine (0.6-1.5) mg/dL BUN/Creatinine Ratio (12.00-20.00) Ratio Glucose (70-110) mg/dL POC Glucose (mg/dL) 168 H (70-110) mg/dL Calcium (8.7-10.3) mg/dL Total Bilirubin (0.3-1.2) mg/dL C-Reactive Protein (<1.0) mg/dL Total Protein (6.2-8.2) g/dL Albumin (3.8-4.9) g/dL Albumin/Globulin Ratio (1.60-3.17) Ratio Microbiology - Last 24 Hours (Table) 08/13/23 20:15 Gram Stain - Preliminary Back 08/11/23 08:24 Blood Culture - Preliminary Blood 08/12/23 04:09 Blood Culture - Preliminary Blood
[2023-08-14 17:11] LABS: Glucose,Whole Blood 165 mg/dL (70-110)
[2023-08-14 20:06] LABS: Glucose,Whole Blood 223 mg/dL (70-110)
[2023-08-14] MEDS: polyethylene glycoL 3350 17 GM POWD.PACK PO SCH (21:12)
[2023-08-15 05:50] LABS: Glucose,Whole Blood 201 mg/dL (70-110)
--- NOTE | 2023-08-15 08:02 | P.PN ---
Subjective Progress Note Date: 08/14/23 Principal diagnosis: Reason for follow-up is MSSA bacteremia and discitis Patient is a 52-year-old male with multiple comorbidities including a lower back pain presented to hospital for worsening Back pain patient also have a positive blood culture with MSSA and abnormal MRI suspicious for discitis Patient is status post drainage of the deep lumbar abscess along with L3-4, L4-5 posterior lateral interbody fusion, L3-4 and L4-5 bilateral laminectomy complete facetectomy foraminotomy and decompression insertion of biomechanical devices x 2 cages, procedure completed on 08/13/2023. On today's evaluation that is 08/14/2023, Patient is afebrile patient is currently on room air and denies having any shortness of breath, the patient denies any chest pain or cough, the patient denies any nausea vomiting did not have any abdominal pain and no diarrhea, patient mention improvement in his lower back pain. Patient white count is slightly up to 20.20 creatinine is 0.65 blood culture repeat has been negative Objective - Vital Signs Vital signs: Vital Signs Temp 98.3 F 08/14/23 07:15 Pulse 95 08/14/23 07:15 Resp 17 08/14/23 07:15 BP 113/74 08/14/23 07:15 Pulse Ox 93 L 08/14/23 07:15 FiO2 Intake & Output 08/13/23 08/14/23 08/14/23 18:59 06:59 18:59 Intake Total 2952 1200 Output Total 3370 50 Balance 2952 -2170 -50 Intake: IV 2752 1200 Intake, IV Titration 200 Amount IV Fluid Continuation 1, 200 000 ml @ 0 mls/hr IV .[employer] [facility] ONE Rx#:[id number] Output: Drainage 220 50 Right Lower Posterior 220 50 Back Urine 2600 Estimated Blood Loss 550 Other: Voiding Method Urinal Indwelling Catheter - Exam Middle-age male lying in bed in no distress Respiratory system unlabored breathing decreased breath sound the base Heart S1-S2 regular Abdominal soft no tenderness Extremities no edema feet Skin no rashes, no masses palpable Patient is awake alert oriented x 3 mood and affect is normal Exam compleetd with help of TENTERING MACHINE OFF BEARER - Labs CBC & Chem 7: 08/14/23 03:05 08/14/23 03:05 Labs: Abnormal Lab Results - Last 24 Hours (Table) 08/13/23 08/14/23 08/14/23 Range/Units 15:33 03:05 03:05 WBC 20.20 H (4.50-10.00) X 10*3/uL RBC 4.17 L (4.40-5.60) X 10*6/uL Hgb 12.1 L (13.0-17.0) g/dL Hct 38.4 L (39.6-50.0) % MCHC 31.5 L (32.0-37.0) g/dL MPV 9.3 L (9.5-12.2) FL ESR 38 H (0-20) mm/Hr Sodium 131 L (137-145) mmol/L BUN 21 H (9-20) mg/dL Creatinine 0.65 L (0.66-1.25) mg/dL Glucose 173 H (74-99) mg/dL POC Glucose (mg/dL) 157 H (70-110) mg/dL C-Reactive Protein 3.3 H (<1.0) mg/dL Total Protein 5.2 L (6.3-8.2) g/dL Albumin 2.9 L (3.5-5.0) g/dL 08/14/23 08/14/23 Range/Units 05:41 11:51 WBC (4.50-10.00) X 10*3/uL RBC (4.40-5.60) X 10*6/uL Hgb (13.0-17.0) g/dL Hct (39.6-50.0) % MCHC (32.0-37.0) g/dL MPV (9.5-12.2) FL ESR (0-20) mm/Hr Sodium (137-145) mmol/L BUN (9-20) mg/dL Creatinine (0.66-1.25) mg/dL Glucose (74-99) mg/dL POC Glucose (mg/dL) 168 H 282 H (70-110) mg/dL C-Reactive Protein (<1.0) mg/dL Total Protein (6.3-8.2) g/dL Albumin (3.5-5.0) g/dL Microbiology - Last 24 Hours (Table) 08/13/23 03:08 Blood Culture - Preliminary Blood 08/12/23 04:09 Blood Culture - Preliminary Blood 08/13/23 20:15 Gram Stain - Preliminary Back 08/13/23 20:15 Gram Stain - Preliminary Back 08/09/23 16:45 Blood Culture Gram Stain - Final Blood Blood Culture - Final Staphylococcus aureus Coagulase Negative Staph 08/13/23 20:15 Gram Stain - Preliminary Back 08/11/23 08:24 Blood Culture - Preliminary Blood Assessment and Plan (1) MSSA bacteremia Current Visit: Yes Status: Acute Code(s): R78.81 - BACTEREMIA; B95.61 - METHICILLIN SUSCEP STAPH INFCT CAUSING DIS CLASSD [id number] SNOMED Code(s): 752955872 (2) Lumbar discitis Current Visit: Yes Status: Acute Code(s): M46.46 - DISCITIS, UNSPECIFIED, LUMBAR REGION SNOMED Code(s): 465431540 (3) Leukocytosis Current Visit: Yes Status: Acute Code(s): D72.829 - ELEVATED WHITE BLOOD CELL COUNT, UNSPECIFIED SNOMED Code(s): 024272391 Plan: This is a telehealth visit 1patient with MSSA bacteremia in this patient who did have a chronic back pain with acute worsening and now with evidence of MSSA bacteremia abnormal CT/MRI possible discitis/osteomyelitis 2-blood cultures has been repeated document clearance of his bacteremia, with repeat blood cultures so far negative 3-patient is status post extensive lumbar spine surgery with drainage of abscess fusion and hardware placement completed on 08/13/2023 4-patient did have slight worsening of the white count more likely post surgery reactive and will be monitored closely continue with the cefazolin we will order PICC line for outpatient IV antibiotic therapy Dictation was produced using [employer] dictation software. please excuse any grammatical, word or spelling errors. Time with Patient: Less than 30
[2023-08-15 08:39] LABS: HCT 36.4 % (39.6-50.0); MCH 29.9 pg (27.0-32.0); MCV 90.5 FL (80.0-97.0); NRBC Per 100 WBC 0 X 10*3/uL (0.00-0.01); Platelet Count 207 X 10*3/uL (140-440); RBC 4.02 X 10*6/uL (4.40-5.60); RDW 13.8 % (11.5-14.5); WBC 17.15 X 10*3/uL (4.50-10.00)
[2023-08-15 08:57] LABS: Magnesium 2.3 mg/dL (1.5-2.4)
[2023-08-15 09:05] LABS: ALT 21 U/L (10-49); AST 12 U/L (14-35); Albumin 3.2 g/dL (3.8-4.9); Albumin/Globulin Ratio 1.52 Ratio (1.60-3.17); Alkaline Phosphatase 46 U/L (41-126); Blood Urea Nitrogen 17.4 mg/dL (9.0-27.0); Calcium 8.1 mg/dL (8.7-10.3); Carbon Dioxide 23.8 mmol/L (21.6-31.8); Chloride 99 mmol/L (96-109); Globulin 2.1 g/dL (1.6-3.3); Glucose 214 mg/dL (70-110); Potassium 4.5 mmol/L (3.5-5.5); Sodium 133 mmol/L (135-145); Total Bilirubin 0.4 mg/dL (0.3-1.2); Total Protein 5.3 g/dL (6.2-8.2)
--- NOTE | 2023-08-15 09:45 | P.PN ---
Subjective Progress Note Date: 08/15/23 Principal diagnosis: Intractable low back pain Patient seen and examined this morning. Patient is sitting upright in bed tolerating breakfast. Patient states he had been up to chair multiple times yesterday and tolerated activity well. Discussed pulling drain and changing dres sing, patient request to wait until he is up in chair for lunch. Continue to encourage an increase of patient's activity as tolerated and to be up in chair for all meals. No acute concerns at this time. Objective - Vital Signs Vital signs: Vital Signs Temp 98.6 F 08/15/23 07:09 Pulse 89 08/15/23 07:09 Resp 18 08/15/23 07:09 BP 124/85 08/15/23 07:09 Pulse Ox 95 08/15/23 07:09 FiO2 Intake & Output 08/14/23 08/15/23 08/15/23 18:59 06:59 18:59 Intake Total 1300 Output Total 350 1480 Balance 950 -1480 Intake: Intake, IV Titration 1050 Amount Lactated Ringers 1,000 ml 1000 @ 0 mls/hr IV .[employer] ONE Rx#:[id number] ceFAZolin 2 gm In Sodium 50 Chloride 0.9% 50 ml @ 100 mls/hr IVPB [facility] Rx#: [id number] Oral 250 Output: Drainage 50 5 Right Lower Posterior 50 5 Back Urine 300 1475 Other: Voiding Method Toilet Urinal - Exam General: The patient is awake and alert, in no acute distress. Skin: Skin is warm and dry with no obvious rashes or lesions. Surgical incision to the lumbar spine, dressing is clean dry and intact with Hemovac present with documented to 5 mL output overnight. Eye: Pupils are equal, round and reactive to light, extra-ocular movements are intact; there is normal conjunctiva bilaterally. Neck: The neck is supple, there is no tenderness and ROM intact. Gastrointestinal: Soft, non-distended, non-tender abdomen. Back: There is no tenderness to palpation in the midline, paralumbar, parathoracic or buttocks region. There is no obvious deformity. Musculoskeletal: ROM limited secondary to pain and stiffness. Right: Shoulder abduction 5/5, elbow flexors 5/5, wrist dorsiflexors 5/5. finger abductor 5/5, patient registration supervisor 5/5, hip flexor 5/5, knee flexor 5/5, ankle dorsiflexor 5/5, ankle plantarflexion 5/5 and extensor hallucis 5/5. Left: Shoulder abduction 5/5, elbow flexors 5/5, wrist dorsiflexors 5/5. finger abductor 5/5, patient registration supervisor 5/5, hip flexor 4/5, knee flexor 5/5, ankle dorsiflexor 5/5, ankle plantarflexion 5/5 and extensor hallucis 5/5. Neurological: CN 2-12 intact. There are no obvious motor or sensory deficits. Movement and coordination equal and intact. Sensory exam to light touch intact C5-T1 and intact from L2-S1. Reflexes 2/4 in bilateral upper and lower extremities. Negative Hoffmans, babinski, and clonus signs. Psychiatric: Cooperative, appropriate mood & affect, normal judgment. - Labs CBC & Chem 7: 08/15/23 06:06 08/15/23 06:06 Labs: Abnormal Lab Results - Last 24 Hours (Table) 08/14/23 08/14/23 08/14/23 Range/Units 03:05 11:51 17:10 WBC 20.20 H (4.50-10.00) X 10*3/uL RBC 4.17 L (4.40-5.60) X 10*6/uL Hgb 12.1 L (13.0-17.0) g/dL Hct 38.4 L (39.6-50.0) % MCHC 31.5 L (32.0-37.0) g/dL MPV 9.3 L (9.5-12.2) FL ESR 38 H (0-20) mm/Hr POC Glucose (mg/dL) 282 H 165 H (70-110) mg/dL 08/14/23 08/15/23 Range/Units 20:04 05:48 WBC (4.50-10.00) X 10*3/uL RBC (4.40-5.60) X 10*6/uL Hgb (13.0-17.0) g/dL Hct (39.6-50.0) % MCHC (32.0-37.0) g/dL MPV (9.5-12.2) FL ESR (0-20) mm/Hr POC Glucose (mg/dL) 223 H 201 H (70-110) mg/dL Microbiology - Last 24 Hours (Table) 08/11/23 08:24 Blood Culture - Preliminary Blood 08/13/23 03:08 Blood Culture - Preliminary Blood 08/12/23 04:09 Blood Culture - Preliminary Blood 08/13/23 20:15 Gram Stain - Preliminary Back 08/13/23 20:15 Gram Stain - Preliminary Back 08/09/23 16:45 Blood Culture Gram Stain - Final Blood Blood Culture - Final Staphylococcus aureus Coagulase Negative Staph 08/13/23 20:15 Gram Stain - Preliminary Back Assessment and Plan Assessment: Postop day 2: L3-L5 decompression and fusion with evacuation of epidural mass and facet abscess. 1. Acute on Chronic low back pain 2. Lumbar spondylosis with severe stenosis 3. L2-L3 left paracentral HNP 4. L3-L4 HNP with severe spinal stenosis 5. L4-L5 facet hypertrophy with severe stenosis 6. Left lower extremity radiculopathy 7. Multiple comorbidities Plan: -Appreciate retail sales consultant and team management. -Activity: Ambulate QID, OOB all meals, up and about, limit lifting bending twisting to less than 5 lbs. Use walker or cane if needed for stability. -Daily PT/OT, increase ambulation strength and balance. -Brace when up and about, not needed in bed or chair -Pain control: Adequate at this time -Meds: reviewed -GI ppx: senna, Miralax -DVT PPX: Heparin -Hygiene: Shower today. Maintain dressing clean and dry. Meticulous cleaning after BMs away from the incision site -Drains: Maintain for now. Continue to monitor and record output q shift. -Encourage IS 10x/hr -Dispo: Clinically pending *I reviewed and discussed this case with my attending Dr. Ruffin, whom has reviewed this chart and films and is in agreement with assessment and plan of care as outlined above. I have personally seen and examined the patient, performed the documentation and the assessment and plan as written. Number of minutes spent on the visit: 20m.
--- NOTE | 2023-08-15 10:17 | XR ---
EXAMINATION TYPE: XR chest 1V DATE OF EXAM: 08/15/2023 COMPARISON: NONE HISTORY: 52-year-old male PICC line placement TECHNIQUE: Single frontal view of the chest is obtained. FINDINGS: The degree of penetration limits evaluation. The right-sided PICC line not clearly seen in the upper SVC level. AP densities likely relating to overlying soft tissue. Heart borderline in size . No maninder consolidation or pleural effusion seen. IMPRESSION: Portable exam and underpenetration limits assessment. Right PICC tip not clearly seen be yond the upper SVC level.
[2023-08-15 12:39] LABS: Glucose,Whole Blood 181 mg/dL (70-110)
--- NOTE | 2023-08-15 16:30 | P.PN ---
Subjective Progress Note Date: 08/15/23 Hospital course: Patient is a pleasant 52-year-old male with a past medical history of ankylosing spondylitis with chronic lower back pain, hypertension, hyperlipidemia, hypothyroidism, type II [id number] diabetes mellitus, and BPH. Patient presented to [facility] on 08/09/2023 with a chief complaint of acute on chronic lower back pain radiating into the left hip. Arrival to our facility, patient underwent evaluation in the emergency department. Vital signs upon arrival show blood pressure 146/93, heart rate 99, respiratory rate 18, temp 99.0 F, and SpO2 of 98% on room air. Labs completed and reviewed. CBC showing leukocytosis with WBC count of 31.4 and BMP showing hyponatremia with sodium of 133 and hyperglycemia with blood glucose of 198. Liver profile was unremarkable. Urinalysis negative for blood or infection. CT lumbar spine showing T12 inferior endplate loss of cortex possibly representing Schmutz node versus fracture, disc bulge at L3-L4 with severe spinal canal stenosis, and disc bulging at L2-L3 with possible central disc protrusion. Patient was admitted under our services with consultation to orthospine surgery team. MRI was completed and radiology report reviewed showing suspected acute Schmorl's node versus fracture of the inferior endplate of T12 with bony edema and reactive enhancement, edema in the L1 superior endplate, reactive edema in the L3-L4 and L4-L5 facet joints with some mild postcontrast reactive enhancement, L3-L4 and L4-L5 severe spinal canal stenosis secondary to disc bulging and narrowed thecal sac caliber with facet joint arthropathy, moderate to severe bilateral neuroforaminal stenosis at L4-L5, L2-L3 left subarticular disc protrusion without significant canal stenosis with mild to moderate neural foraminal stenosis bilaterally, and hyperdense cyst seen on CT his lower T2 signal. Blood cultures positive for Staphylococcus aureus bacteremia concerning for septic arthritis of lumbar spine with epidural abscess and lumbar discitis. On 08/13/2023 orthospine surgery took patient for L3-L4 and L4-L5 posterior lateral and interbody fusion, epidural mass evacuation, L3-L5 segmental instrumentation, and L3-L4 and L4-L5 bilateral laminectomy with complete facetectomy, foraminotomy decompression, and insertion of biomechanical devices x 2 cages L3-L4 and L4-L5. Physical exam: Patient seen and fully evaluated at bedside. He is postoperative day 2 and appears to be doing well. Patient reports having moderate pain this morning to lower back, but continues to deny having any numbness/tingling or difficulties with urination. He reports continued constipation and being medicated at this time. Vital signs review and appears to be doing well.ed and stable. General: Nontoxic, no distress and appears stated age. Derm: Skin warm and dry, normal coloration for ethnicity. Small abrasion/scabbing to right upper extremity. No surrounding erythema, swelling, or drainage. Head: Atraumatic, normocephalic and symmetric. Eyes: EOMs intact, no lid lag, and anicteric sclera Mouth: no lip lesions, mucus membranes moist Cardiovascular: regular rate and rhythm with normal S1S2, no murmur, positive posterior tibial pulses bilaterally, and cap refill < 2 seconds. Lungs: Respirations even, regular, and unlabored on room air. Lungs CTA bilaterally, no rhonchi, no rales, no wheezing, and no accessory muscle usage. Abdominal: soft, nontender to palpation, no guarding, no appreciable organomegaly. Postoperative dressing clean, dry, and intact to lumbar spine with drain in place. Ext: ROM intact. No gross muscle atrophy, no edema, no contractures Neuro: Speech clear, face symmetrical and CN II-XII grossly intact with no noted focal neuro deficits Psych: Alert and oriented to person, place, time, and situation. Appropriate and pleasant affect. Assessment and Plan of Care: Septic arthritis of lumbar spine with epidural abscess and lumbar discitis Staphylococcus aureus bacteremia, secondary to above Acute exacerbation of chronic lower back pain with left-sided sciatica Severe spinal canal stenosis of lumbar spine with reactive edema secondary to septic arthritis with epidural abscess and lumbar discitis Rule out T12 fracture vs acute Schmorl's node Significant leukocytosis, possibly reactive Ankylosing spondylitis with chronic lower back pain -Continue with symptomatic care and pain management with Dilaudid 0.5 mg every 3 hours for moderate pain and 1 mg every 3 hours for severe pain. -Continue Decadron 4 mg IVP every 6 hours as managed by orthospine surgery team. -Orthospine surgery team following and took patient for extensive lumbar surgery with interbody fusion, epidural mass evacuation, bilateral laminectomy with complete facetectomy, foraminotomy decompression, and instrumental insertion of biomechanical cages on 08/13/2023. -Postoperative management of dressing, drain, progression of activity, pain management, PT/OT, and DVT prophylaxis per orthospine surgery team. -Continue Neurochecks every 4 hours and fall precautions in place. -PT/OT following -Blood cultures initially positive for Staph aureus in 2 out of 2 sets with resistance to azithromycin, clindamycin and erythromycin. Repeat blood cultures showing no growth to date. -Continue cefazolin 2 g every 8 hours IVPB -Infectious disease following, reviewed documentation in chart. Constipation Increased MiraLAX 17 g twice daily and will continue to monitor for resolution. TypeII diabetes mellitus with hyperglycemia -Hold Rybelsus and continue glycemic protocol with NovoLog sliding scale. Hypertension -Continue daily medication regimen with hydrochlorothiazide 25 mg daily losartan 100 mg daily. Hypothyroidism -Continue daily medication regimen with levothyroxine 125 mcg daily. Hyperlipidemia -Continue daily medication regimen with rosuvastatin 5 mg daily. BPH -Continue Flomax 0.8 mg daily. Data and imaging reviewed: -Morning labs reviewed. Labs completed and reviewed. CBC leukocytosis with WBC count of 17.15 and hemoglobin of 12.0. BMP showing mild hyponatremia with sodium of 133 and hyperglycemia with glucose of 214 this morning. Magnesium normal findings at 2.3. -Blood cultures positive for Staph aureus in 2 out of 2 sets resistance to azithromycin, clindamycin and erythromycin. Repeat blood cultures drawn 08/11/2023, 08/12/23, and 08/13/2023 showing no growth to date. -Vital signs reviewed. Blood pressure 124/85, heart rate 89, respiratory rate 18, temp 98.6 F, and SpO2 of 95% on room air. CODE STATUS: Full code DVT prophylaxis: MIGEL shirley and SCDs Anticipated discharge date: Pending clinical course Anticipated discharge place: Pending clinical course Patient was seen independently by Nurse Pracitioner. This document was prepared using [employer] dictation software. Please allow for errors in statistical consultant, while rare they do occur. I reviewed the documentation as provided by the TABATHA above, who is the original author of this note. I agree with the documented assessment and plan, with the following changes: none. Objective - Vital Signs Vital signs: Vital Signs Temp 98.6 F 08/15/23 07:09 Pulse 89 08/15/23 07:09 Resp 18 08/15/23 07:09 BP 124/85 08/15/23 07:09 Pulse Ox 95 08/15/23 07:09 FiO2 Intake & Output 08/14/23 08/15/23 08/15/23 18:59 06:59 18:59 Intake Total 1300 Output Total 350 1480 Balance 950 -1480 Intake: Intake, IV Titration 1050 Amount Lactated Ringers 1,000 ml 1000 @ 0 mls/hr IV .[facility] Rx#:[id number] ceFAZolin 2 gm In Sodium 50 Chloride 0.9% 50 ml @ 100 mls/hr IVPB Q8H [facility] Rx#: [id number] Oral 250 Output: Drainage 50 5 Right Lower Posterior 50 5 Back Urine 300 1475 Other: Voiding Method Toilet Urinal - Labs CBC & Chem 7: 08/15/23 06:06 08/15/23 06:06 Labs: Abnormal Lab Results - Last 24 Hours (Table) 08/14/23 08/14/23 08/14/23 Range/Units 03:05 11:51 17:10 WBC 20.20 H (4.50-10.00) X 10*3/uL RBC 4.17 L (4.40-5.60) X 10*6/uL Hgb 12.1 L (13.0-17.0) g/dL Hct 38.4 L (39.6-50.0) % MCHC 31.5 L (32.0-37.0) g/dL MPV 9.3 L (9.5-12.2) FL ESR 38 H (0-20) mm/Hr POC Glucose (mg/dL) 282 H 165 H (70-110) mg/dL 08/14/23 08/15/23 Range/Units 20:04 05:48 WBC (4.50-10.00) X 10*3/uL RBC (4.40-5.60) X 10*6/uL Hgb (13.0-17.0) g/dL Hct (39.6-50.0) % MCHC (32.0-37.0) g/dL MPV (9.5-12.2) FL ESR (0-20) mm/Hr POC Glucose (mg/dL) 223 H 201 H (70-110) mg/dL Microbiology - Last 24 Hours (Table) 08/11/23 08:24 Blood Culture - Preliminary Blood 08/13/23 03:08 Blood Culture - Preliminary Blood 08/12/23 04:09 Blood Culture - Preliminary Blood 08/13/23 20:15 Gram Stain - Preliminary Back 08/13/23 20:15 Gram Stain - Preliminary Back 08/09/23 16:45 Blood Culture Gram Stain - Final Blood Blood Culture - Final Staphylococcus aureus Coagulase Negative Staph 08/13/23 20:15 Gram Stain - Preliminary Back
[2023-08-15 16:34] LABS: Glucose,Whole Blood 211 mg/dL (70-110)
[2023-08-15] MEDS: MAGNESIUM CITRATE 296 ML BOTTLE PO STA (17:24)
[2023-08-15] MEDS: ACETAMINOPHEN TAB 325 MG TAB PO PRN (19:55)
[2023-08-15 20:50] LABS: Glucose,Whole Blood 236 mg/dL (70-110)
[2023-08-16 05:49] LABS: Glucose,Whole Blood 225 mg/dL (70-110)
[2023-08-16 08:17] LABS: African American GFR (CKD) >90 (>60 ml/min/1.73 sqM); Anion Gap 5 mmol/L; Blood Urea Nitrogen 17 mg/dL (9-20); Calcium 8.6 mg/dL (8.4-10.2); Carbon Dioxide 26 mmol/L (22-30); Chloride 102 mmol/L (98-107); Glucose 197 mg/dL (74-99); Magnesium 2.3 mg/dL (1.6-2.3); Non-African American GFR(CKD) >90 (>60 ml/min/1.73 sqM); Potassium 4.6 mmol/L (3.5-5.1); Sodium 133 mmol/L (137-145)
[2023-08-16 09:01] LABS: HCT 39.6 % (39.0-53.0); HGB 13.3 gm/dL (13.0-17.5); MCH 30.6 pg (25.0-35.0); MCHC 33.6 g/dL (31.0-37.0); Mean Platelet Volume 8.6; Platelet Count 166 k/uL (150-450); RBC 4.36 m/uL (4.30-5.90); RDW 13.8 % (11.5-15.5); WBC 12.2 k/uL (3.8-10.6)
--- NOTE | 2023-08-16 10:03 | P.PN ---
Subjective Progress Note Date: 08/16/23 Principal diagnosis: 1. Acute on Chronic low back pain 2. Lumbar spondylosis with severe stenosis 3. L2-L3 left paracentral HNP 4. L3-L4 HNP with severe spinal stenosis 5. L4-L5 facet hypertrophy with severe stenosis 6. Left lower extremity radiculopathy 7. Multiple comorbidities Patient was seen at bedside this morning sitting up in chair with dressing and drain in place over lumbar spine. Patient says he has been up walking around okay under his own power using a walker. Patient says he has been urinating since surgery without issue. Patient says most of the pain he is having spasms in his back. He says he does notices improvement since surgery and the pain. Patient says he is looking forward to working with therapy later today. Patient denies any other orthopedic issues at this time. Objective - Vital Signs Vital signs: Vital Signs Temp 98.2 F 08/16/23 01:53 Pulse 89 08/16/23 01:53 Resp 16 08/16/23 01:53 BP 114/75 08/16/23 01:53 Pulse Ox 96 08/16/23 01:53 FiO2 Intake & Output 08/15/23 08/16/23 08/16/23 18:59 06:59 18:59 Output Total 5 1950 Balance - -1949 Output: Drainage 5 0 Right Lower Posterior 5 0 Back Urine 1950 Other: Voiding Method Toilet Urinal # Voids 2 # Bowel Movements 1 - Exam Minimal serosanguineous output in the drain. Drain was removed at bedside this morning. New dressing was placed over drain incision and incision at midline over spine. Mack appear to be well aligned and intact. Positive for fair amount of tenderness to palpation over incision at midline. Sensation is equal, symmetric, bilat intact throughout the upper and lower extremities. Patient does have full range of motion throughout bilateral upper extremities on exam. full range of motion throughout bilateral lower extremities on exam. 5/5 in all major motor groups in bilateral upper extremities. 4/5 in all major motor groups in bilateral lower extremities. Neurovascular status intact. Cap refill under 3 seconds in digits of upper extremities. Radial pulse intact, 2+ bilaterally. - Labs CBC & Chem 7: 08/16/23 07:30 08/16/23 07:30 Labs: Abnormal Lab Results - Last 24 Hours (Table) 0608/15/23 08/15/23 Range/Units 12:38 16:33 20:48 WBC (3.8-10.6) k/uL Sodium (137-145) mmol/L Creatinine (0.66-1.25) mg/dL Glucose (74-99) mg/dL POC Glucose (mg/dL) 181 H 211 H 236 H (70-110) mg/dL 08/16/23 08/16/23 08/16/23 Range/Units 05:48 07:30 07:30 WBC 12.2 H (3.8-10.6) k/uL Sodium 133 L (137-145) mmol/L Creatinine 0.48 L (0.66-1.25) mg/dL Glucose 197 H (74-99) mg/dL POC Glucose (mg/dL) 225 H (70-110) mg/dL Microbiology - Last 24 Hours (Table) 08/13/23 03:08 Blood Culture - Preliminary Blood 08/12/23 04:09 Blood Culture - Preliminary Blood 08/13/23 20:15 Gram Stain - Preliminary Back Wound Culture - Preliminary Presumptive Staph aureus 08/13/23 20:15 Gram Stain - Preliminary Back Wound Culture - Preliminary Presumptive Staph aureus 08/13/23 20:15 Gram Stain - Preliminary Back Wound Culture - Preliminary Presumptive Staph aureus Assessment and Plan Assessment: Postop day 1: L3-L5 decompression and fusion with evacuation of epidural mass and facet abscess. 1. Acute on Chronic low back pain 2. Lumbar spondylosis with severe stenosis 3. L2-L3 left paracentral HNP 4. L3-L4 HNP with severe spinal stenosis 5. L4-L5 facet hypertrophy with severe stenosis 6. Left lower extremity radiculopathy 7. Multiple comorbidities -Postop day #3 status post L3-L5 decompression and fusion with evacuation of epidural mass in the past for abscess Plan: 1. Acute on Chronic low back pain;. Lumbar spondylosis with severe stenosis; L2- L3 left paracentral HNP; L3-L4 HNP with severe spinal stenosis; L4-L5 facet hypertrophy with severe stenosis; Left lower extremity radiculopathy -surgery performed 08/13/2023 L3-L5 decompression and fusion with evacuation of epidural mass and facet abscess. Patient stable at bedside this morning. Drain was removed at bedside this morning. New dressing was placed over drain incision and new dressing was placed over incision at midline. Weightbearing as tolerated with walker. Work with PT/OT daily. Assess dressings daily. Pain medication as needed. We will continue to follow patient during stay in hospital. 2. Appreciate medical, ID management 3. Pain management -Mylo; Flexeril; oxycodone 4. GI prophylaxis -senna; MiraLAX 5. DVT prophylaxis -mechanical 6. PT/OT -weightbearing as tolerated with walker and assistance as needed 7. Encourage incentive spirometer use Time with Patient: Less than 30
[2023-08-16 10:29] VITALS: RESP 18
[2023-08-16] MEDS: DEXAMETHASONE SOD PHOSPHATE 4 MG/ML 1 ML VIAL IVP SCH (14:11)
[2023-08-16 14:12] LABS: Glucose,Whole Blood 277 mg/dL (70-110)
--- NOTE | 2023-08-16 14:22 | P.DS ---
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 Orthospine surgery team following and took patient for extensive lumbar surgery with interbody fusion, epidural mass evacuation, bilateral laminectomy with complete facetectomy, foraminotomy decompression, and instrumental insertion of biomechanical cages on 08/13/2023. Patient had positive blood cultures for Staphylococcus aureus and was maintained on IV antibiotics. Infectious disease following. He is being discharged home with PICC line on IV antibiotics with cefazolin which will be managed by infusion clinic and infectious disease on an outpatient basis. Patient will need to follow-up with PCP in 1 to 2 days, infectious disease in 2 weeks, and orthospine surgery team in 2 weeks. Staphylococcus aureus bacteremia, secondary to above Acute exacerbation of chronic lower back pain with left-sided sciatica, secondary to above Severe spinal canal stenosis of lumbar spine with reactive edema secondary to septic arthritis with epidural abscess and lumbar discitis Significant leukocytosis, possibly reactive Ankylosing spondylitis with chronic lower back pain Constipation. Resolved. Continue MiraLAX 17 g twice daily. TypeII diabetes mellitus with hyperglycemia Continue Rybelsus 7 mg daily. Hypertension. Continue daily medication regimen with hydrochlorothiazide 25 mg daily losartan 100 mg daily. Hypothyroidism Continue daily medication regimen with levothyroxine 125 mcg daily. Hyperlipidemia. Continue daily medication regimen with rosuvastatin 5 mg daily. BPH. Continue Flomax 0.8 mg daily. Hospital course: Patient is a pleasant 52-year-old male with a past medical history of ankylosing spondylitis with chronic lower back pain, hypertension, hyperlipidemia, hypothyroidism, type II [id number]-[id number] diabetes mellitus, and BPH. Patient presented to [facility] on 08/09/2023 with a chief complaint of acute on chronic lower back pain radiating into the left hip. Arrival to our facility, patient underwent evaluation in the emergency department. Vital signs upon arrival show blood pressure 146/93, heart rate 99, respiratory rate 18, temp 99.0 F, and SpO2 of 98% on room air. Labs completed and reviewed. CBC showing leukocytosis with WBC count of 31.4 and BMP showing hyponatremia with sodium of 133 and hyperglycemia with blood glucose of 198. Liver profile was unremarkable. Urinalysis negative for blood or infection. CT lumbar spine showing T12 inferior endplate loss of cortex possibly representing Schmutz node versus fracture, disc bulge at L3-L4 with severe spinal canal stenosis, and disc bulging at L2-L3 with possible central disc protrusion. Patient was admitted under our services with consultation to orthospine surgery team. MRI was completed and radiology report reviewed showing suspected acute Schmorl's node versus fracture of the inferior endplate of T12 with bony edema and reactive enhancement, edema in the L1 superior endplate, reactive edema in the L3-L4 and L4-L5 facet joints with some mild postcontrast reactive enhancement, L3-L4 and L4-L5 severe spinal canal stenosis secondary to disc bulging and narrowed thecal sac caliber with facet joint arthropathy, moderate to severe bilateral neuroforaminal stenosis at L4-L5, L2-L3 left subarticular disc protrusion without significant canal stenosis with mild to moderate neural foraminal stenosis bilaterally, and hyperdense cyst seen on CT his lower T2 signal. Blood cultures positive for Staphylococcus aureus bacteremia concerning for septic arthritis of lumbar spine with epidural abscess and lumbar discitis. On 08/13/2023 orthospine surgery took patient for L3-L4 and L4-L5 posterior lateral and interbody fusion, epidural mass evacuation, L3-L5 segmental in strumentation, and L3-L4 and L4-L5 bilateral laminectomy with complete facetectomy, foraminotomy decompression, and insertion of biomechanical devices x 2 cages L3-L4 and L4-L5. Blood cultures initially positive for Staph aureus in 2 out of 2 sets resistance to azithromycin, clindamycin and erythromycin. Repeat blood cultures drawn 08/11/2023, 08/12/23, and 08/13/2023 showing no growth to date. Patient has been cleared from infectious disease standpoint for discharge home on IV antibiotics cefazolin, PICC line was placed and IV antibiotics being managed by infusion center and infectious disease outpatient. Patient cleared from orthospine surgery team discharged home on a Medrol dose taper. Medically, patient is stable for discharge at this time. Home care has been set up with [facility] along with delivery of supplies. Patient to follow-up outpatient with PCP in 1 to 2 days, infectious disease in 2 weeks, and orthospine surgery in 2 weeks. Physical exam: Vital signs review and appears to be doing well.ed and stable. General: Nontoxic, no distress and appears stated age. Derm: Skin warm and dry, normal coloration for ethnicity. Small abrasi on/scabbing to right upper extremity. No surrounding erythema, swelling, or drainage. Head: Atraumatic, normocephalic and symmetric. Eyes: EOMs intact, no lid lag, and anicteric sclera Mouth: no lip lesions, mucus membranes moist Cardiovascular: regular rate and rhythm with normal S1S2, no murmur, positive posterior tibial pulses bilaterally, and cap refill < 2 seconds. Lungs: Respirations even, regular, and unlabored on room air. Lungs CTA bilaterally, no rhonchi, no rales, no wheezing, and no accessory muscle usage. Abdominal: soft, nontender to palpation, no guarding, no appreciable organomegaly. Postoperative dressing clean, dry, and intact to lumbar spine. Drain was removed this morning. Ext: ROM intact. No gross muscle atrophy, no edema, no contractures Neuro: Speech clear, face symmetrical and CN II-XII grossly intact with no noted focal neuro deficits Psych: Alert and oriented to person, place, time, and situation. Appropriate and pleasant affect. A total of 39 minutes of time were spent preparing this complex discharge summary. Pt was discharged on 08/16/2023 at 11:35 AM. Patient was seen independently by Nurse Practitioner. This document was prepared using [employer] dictation software. Please allow for errors in pest control worker helper while rare they do occur. I reviewed the documentation as provided by the TABATHA above, who is the original author of this note. I agree with the documented assessment and plan, with the following changes: none Patient Condition at Discharge: Stable Plan - Discharge Summary Discharge Rx Participant: No New Discharge Prescriptions: New polyethylene glycoL 3350 [Miralax] 17 gm PO BID 30 Days #60 packet methylPREDNISolone Dose Pack [Medrol Dose Pack] 4 mg PO DIRECTED #1 packet HYDROcodone/APAP 10-325MG [[place] 10-325] 1 tab PO Q6HR PRN 7 Days #28 tab PRN Reason: Pain Sennosides/Docusate Sodium [Senna-S 8.6-50 mg Tablet] 2 each PO DAILY PRN #30 tablet PRN Reason: Constipation Continue Tamsulosin [Flomax] 0.8 mg PO DAILY Celecoxib 200 mg PO BID Cyclobenzaprine HCl 10 mg PO HS diazePAM [Valium] 5 mg PO Q8H Losartan Potassium [Cozaar] 100 mg PO DAILY Rosuvastatin Calcium 5 mg PO DAILY Etodolac [Lodine] 400 mg PO BID PRN PRN Reason: increased pain hydroCHLOROthiazide [Hydrodiuril] 25 mg PO DAILY Levothyroxine Sodium [Synthroid] 125 mcg PO DAILY Pramipexole [Mirapex] 0.25 mg PO HS Semaglutide [Rybelsus] 7 mg PO DAILY No Action HYDROcodone/APAP 7.5-325MG [[place] 7.5-325] 1 tab PO TID predniSONE 10 mg PO DAILY PRN PRN Reason: food reaction Discharge Medication List Celecoxib 200 mg PO BID 08/09/23 [History] Cyclobenzaprine HCl 10 mg PO HS 08/09/23 [History] Etodolac [Lodine] 400 mg PO BID PRN 08/09/23 [History] HYDROcodone/APAP 7.5-325MG [[place] 7.5-325] 1 tab PO TID 08/09/23 [History] Levothyroxine Sodium [Synthroid] 125 mcg PO DAILY 08/09/23 [History] Losartan Potassium [Cozaar] 100 mg PO DAILY 08/09/23 [History] Pramipexole [Mirapex] 0.25 mg PO HS 08/09/23 [History] Rosuvastatin Calcium 5 mg PO DAILY 08/09/23 [History] Semaglutide [Rybelsus] 7 mg PO DAILY 08/09/23 [History] Tamsulosin [Flomax] 0.8 mg PO DAILY 08/09/23 [History] diazePAM [Valium] 5 mg PO Q8H 08/09/23 [History] hydroCHLOROthiazide [Hydrodiuril] 25 mg PO DAILY 08/09/23 [History] predniSONE 10 mg PO DAILY PRN 08/09/23 [History] HYDROcodone/APAP 10-325MG [[place] 10-325] 1 tab PO Q6HR PRN 7 Days #28 tab 08/16/23 [Rx] Sennosides/Docusate Sodium [Senna-S 8.6-50 mg Tablet] 2 each PO DAILY PRN #30 tablet 08/16/23 [Rx] methylPREDNISolone Dose Pack [Medrol Dose Pack] 4 mg PO DIRECTED #1 packet 08/16/23 [Rx] polyethylene glycoL 3350 [Miralax] 17 gm PO BID 30 Days #60 packet 08/16/23 [Rx] Follow up Appointment(s)/Referral(s): [facility],Equipment [NON-STAFF] - As Needed (walker) [facility],Infusion [NON-STAFF] - As Needed (Will deliver IV antibiotics to your home this evening.) Vikas Ruffin DO [Doctor of Osteopathic Medicine] - 2 Weeks Clemente Melendrez DO [Primary Care Provider] - 1-2 days Jocelyn Caro MD [STAFF PHYSICIAN] - 09/09/23 2:30 pm [facility] Visiting Nurse, [NON-STAFF] - As Needed (Will come tomorrow to educate on IV antibiotics) Darinel Roegrs [NON-STAFF] - As Needed (LSO back brace) Patient Instructions/Handouts: Posterior Lumbar Interbody Fusion (DC), Septic Arthritis (DC), Bacteremia (DC) Activity/Diet/Wound Care/Special Instructions: Diet: Heart healthy and carb consistent diet. Avoid salts, or foods with hidden salts such as canned or boxed foods and frozen dinners. Extra salt makes your heart work harder and traps the fluid in your body for longer. Special Instructions: Take all of your medications as directed and remember to keep all of your doctor's appointments and follow-up as needed. MRI lumbar spine showing a hyperdense cyst seen on CT, radiologist recommending outpatient follow-up with renal MRI once stable. IV antibiotics to be continued with cefazolin through your PICC line that was placed. This will be managed by infectious disease and infusion center. Thank you for allowing us to participate in your care, it was truly a pleasure having you for our patient!!! Spine Discharge and Recovery Instructions Medications: See medication list All medication refills should be obtained through your primary care doctor or your clinic spine surgeon. Please discuss prescription refills at your follow up appointment. Do not call the hospital for medication refills. Dressing: Leave your dressing in place for a total of 5 days post operatively. Then you may remove your dressing and leave open to air. Keep the area clean and if not able to keep area clean, then cover with sterile gauze and tape. Showering: You may shower 3 days after your procedure allowing soap and water to run over incision. Do not scrub. Do not soak. Blot dry. Follow up: Please confirm a follow up appointment with your surgeon 3 weeks post operatively. Please make an appointment to follow up with your PCP in 1-2 weeks after surgery for evaluation `3 phase, 3-week plan POST OP WEEKS 1-3 1. Lifting/carrying/pushing/pulling limited to less than 5 pounds. 2. Do not sit for longer than 15 minutes at one time. Get up and walk around. Prolonged sitting is NOT advised. If you lay down, see if you can tolerate laying down on you front (belly side) 3. Walk for periods of 15 minutes = 1 mile but no longer; do it multiple times times each day. 4. Ice your low back after activity. POST OP WEEKS 3-6 1. Lifting limited to less than 20 pounds. 2. Do not sit for longer than 30 minutes at a time. Frequently change positions. Use a sit-to stand workstation or take frequent breaks from sitting if you have returned to work. 3. Walk for 30 minutes each day. If possible, do these three or more times a day POST OP WEEKS 6+ At your 6-week appointment we will give you a physical therapy referral to focus on a core stabilization and strengthening program. You should also work on leg & buttock strengthening, hamstring & quadriceps stretching, and continue a low impact aerobic activity program such as swimming, walking, or riding a [employer] bicycle. During the initial 6 weeks after your surgery, you are at the highest risk of re-injuring your spine. You should generally avoid BLTs (bending, lifting and twisting combination motions) and follow the above guidelines to reduce the chance of reinjury. You can anticipate post op appointments in our office at approximately 3 weeks and 6 weeks after your surgery. INCISION CARE: If your incision is not draining you do NOT need to cover it with a dressing. Keep your incision clean, dry and intact. In most cases, we apply skin glue, fred or sutures to the incision at the time of surgery. This will be like a crust or have the appearance of a scab and will fall off in time on its own. The stitches or fred need to be removed at 3 weeks post op appointment. You may begin to shower 3 days after surgery (this allows the glue to viramontes well). However, please avoid scrubbing the incision site or peeling off any of the skin glue. This will ensure optimal healing of your incision. Also, during this time avoid soaking the incision area in water - this includes swimming pools, hot tubs or baths. No ointments, lotions or oils on the incision until your surgeon allows. Leave fred, sutures or glue in place. Neurological dysfunction that comes on suddenly can also be a sign of a stroke. Below some common symptoms of a stroke are listed: B - balance difficulty such as sudden onset walking or leaning to one side - NEW E - eye problem such as sudden double vision or trouble seeing on one side - NEW F - Facial weakness or numbness on one side - NEW A - Arm or leg weakness or numbness on one side - NEW S - Slurred speech or difficulty with word finding - NEW T - Time is BRAIN! Call 911 as soon as you recognize these symptoms Diet: Consume a regular diet rich in vegetables and lean protein such as chicken or fish. You should consume in a ratio of approximately 20% fats|40% carbo hydrates|40%protein. Vegetables, sweet potatoes, brown rice or quinoa are examples of good carbohydrates. Chips, white bread, cookies and sweets/sugar are examples of bad carbohydrates. Limit your bad carbs, go wild with good carbs. "Life's Simple 7" Guidelines as per [place] [employer] These will help you reclaim your life after surgery and leaf conditioner helper in your recovery, keeping in mind your restrictions. (1) Get Active. Physical activity can help people lose weight, control high blood pressure and cholesterol, feel emotionally better, and sleep better. (2) Control Cholesterol. Avoid a diet high in saturated fat, trans fat, & cholesterol. Limit whole milk & cream, ice cream, butter, egg yolks, processed meats (like sausage and hot dogs), and fatty meats. Choose healthy foods that are low in saturated fat, trans fat and cholesterol which include: Fruits and vegetables, fiber rich grain products (like whole grain pasta and brown rice), lean meat such as chicken, fish, nuts, seeds, and legumes. (3) Eat Better. Eat small portions. Shop at the grocery with a list and do not stray from it. Tips for a healthy diet include: Limit sodium intake to less than 1500mg daily, avoid prepackaged, processed, and fast foods, choose a diet rich in fruits, vegetables, and whole grain, high fiber foods, and limit saturated & cholesterol in your diet. (4) Manage Blood Pressure. If you have high blood pressure, you should have a cuff at home so that you can check your blood pressure regularly. Be sure you have a good cuff. An arm one is generally better than a wrist one. Bring the cuff to a doctor's appointment to validate that the measurements that your cuff are taking are accurate. Take your blood pressure twice daily when you are sitting down and relaxing. Record the numbers in a log and bring this log with you to your doctors' appointments. (5) Lose Weight if your BMI is above 25. A healthy BMI is between 19-25. To calculate Your BMI, you may use a Standard BMI Calculator on the NIH BMI website: <www.nhlbi.nih.gov/guidelines/obesity/BMI/bmicalc.htm>. Weigh oneself daily. If you are overweight, set a goal to lose weight. A pound a week loss if needed is a good target. (6) Reduce Blood Sugar. Limit foods and liquids with "added sugars." (Added sugars include sucrose, fructose, glucose, maltose, dextrose, high fructose corn syrup, corn syrup, concentrated fruit juice and honey). (7) Stop Smoking. If you smoke, quitting smoking is one of the best things that you can do for your health. Smoking increases your risk of heart attack, stroke, and peripheral vascular disease, which is a build-up of plaque in your arteries. Please discard all the cigarettes and lighters in your house. Have a plan for what you will do when you have the urge to smoke. Direct and second- hand smoke shortens your life as well as the lives of your family, friends and others around you. For your health and the health of those around you, please consider quitting! Proper Bending Body Mechanics: Maintain a wide stance with one foot slightly in front of the other. Keep your back straight. Bend utilizing the strength in your hips and knees. Do not bend at the waist. Maintain the lifted object at your waist-level close to your body. Avoid lifting weight that causes immediately pain or pain anywhere in the body afterwards. Smoking/Nicotine If there was ever one thing that you could do to increase your overall health, decrease your risk of cardiovascular problems by about 39% the second you make the choice, it is to STOP SMOKING. Your body's most instant gratification is the second you stop smoking. We have all heard the studies, read the articles but it is true, smoking is extremely bad for your overall health, and moreover it is detrimental to your bone health. Nicotine, IN ANY FORM, kills bone cells, prevents your body from healing frac tures, and significantly prolongs healing after surgery. In spine surgery specifically, it increases your risk of not healing your bones to create a fusion and increases your risk of having a revision surgery due to this up to 60%. I know it is hard. I know it feels impossible. But there are ways. Take control of your life. We are here to help you through it. And when you are ready, ask us and we can direct you to help if you desire. Use the START Plan to Quit Smoking (please visit the Helpguide.org website listed below for more information): S = Set a quit date. Choose a date within the next 2 weeks, so you have enough time to prepare without losing your motivation to quit. If you mainly smoke at work, quit on the weekend, so you have a few days to adjust to the change. T = Tell family, friends, and co-workers that you plan to quit. Let your friends and family in on your plan to quit smoking and tell them you need their support and encouragement to stop. Look for a quit sofia who wants to stop smoking as well. You can help each other get through the rough times. A = Anticipate and plan for the challenges you'll face while quitting. Most people who begin smoking again do so within the first 3 months. You can help yourself make it through by preparing ahead for common challenges, such as nicotine withdrawal and cigarette cravings. R = Remove cigarettes and other tobacco products from your home, car, and work. Throw away all your cigarettes (no emergency pack!), lighters, ashtrays, and matches. Wash your clothes and freshen up anything that smells like smoke. Shampoo your car, clean your drapes and carpet, and steam your furniture. T = Talk to your doctor about getting help to quit. Your doctor can prescribe medication to help with withdrawal and suggest other alternatives. If you can't see a doctor, you can get many products over the counter at your local pharmacy or grocery store, including the nicotine patch, nicotine lozenges, and nicotine gum. Resources for Quitting Smoking: <https://www.[place].gov/documents/[facility]/Quit_Tobacco_Resources_for_patients_313 480_7.pdf> Supplementation: Take recommended dosages of Vitamin D and Calcium to help fortify your bones and help them to heal. See your health maintenance packet for dosages and recommended levels. DVT/VTE prophylaxis: You will be given compression stockings from the hospital. Wear these daily for the first two weeks after surgery. You may take them off at night. You may be prescribed a medication to help thin your blood. Take this as directed. If you are not prescribed this medication, early and frequent ambulation has been shown to be the best prophylaxis to deep vein thrombosis and sequelae related to this event. . . Discharge Disposition: HOME WITH HOME HEALTH SERVICES
[2023-08-16 14:59] VITALS: BMI 42.8
[2023-08-16 15:53] VITALS: BP 133/68; PULSE 94; TEMP 98.6
[2023-08-16 16:49] LABS: Glucose,Whole Blood 275 mg/dL (70-110)
--- NOTE | 2023-08-19 10:15 | CDI ---
Documentation Clarification Form Date: 08/19/23 From: Maricarmen Beyer Admit Date: 08/11/2023 09:40:00 AM Patient Name: Reji Howard Visit Number: [id number] Discharge Date: 08/16/2023 06:58:00 PM ATTENTION: The Clinical Documentation Specialists (CDI) and [facility] Coding Staff appreciate your assistance in clarifying documentation. Please respond to the clarification below the line at the bottom and electronically sign. The CDI & [facility] Coding staff will review the response and follow-up if needed. Please note: Queries are made part of the Legal Health Record. If you have any questions, please contact the author of this message via ITS. Dr. Willem Sanchez, There is documentation of Staphylococcus aureus bacteremia is found in 08/[address] Ortiz consult. Bacteremia is considered a lab finding. Additional clarification regarding bacteremia is requested. Patient history/risk factors: Morbid obesity w BMI 42.9, T2DM w hyperglycemia, hypothyroidism, HTN, HLD, BPH Clinical Indicators: Patient was found to have septic arthritis of lumbar spine with epidural abscess. Blood cultures and wound cultures grew Staphylococcus aureus. Resistant to Azithromycin, Clindamycin and Erythromycin. WBC: 31.4 Left Shift: 29.20 Lactic acid: 2.0 Blood Culture: Staphylococcus aureus Treatment: IV Cefazolin, IV Daptomycin, IV Gentamycin, IV Vancomycin Please provide additional clarification regarding the etiology/cause and/or clinical significance of the bacteremia: [x] Bacteremia is related to sepsis [x] Bacteremia is due to infectious process, please specify: septic arthritis, epidural abscess [ ] Bacteremia is not clinically significant [ ] Other, please specify [ ] Unable to determine MTDD
== END 2023-08-16 18:58 | disposition home health service (06) | DRG 853 ==
LOC: EC 12:49 → 6NMEDSUR 18:02 → 4SSUR 20:19 → OBSVTOIN 08-11 09:40
PROVIDERS: ADMIT Internal Medicine; ATTEND Internal Medicine
PROC: 0SG10AJ Fusion of 2 or more Lumbar Vertebral Joints with Interbody Fusion Device, Posterior Approach, Anterior Column, Open Approach (ICD-10-PCS; principal; 2023-08-13 07:30)
PROC: 0SG1071 Fusion of 2 or more Lumbar Vertebral Joints with Autologous Tissue Substitute, Posterior Approach, Posterior Column, Open Approach (ICD-10-PCS; principal; 2023-08-13 07:30)
PROC: 009U0ZX Drainage of Spinal Canal, Open Approach, Diagnostic (ICD-10-PCS; principal; 2023-08-13 07:30)
PROC: 4A11X4G Monitoring of Peripheral Nervous Electrical Activity, Intraoperative, External Approach (ICD-10-PCS; principal; 2023-08-13 07:30)
PROC: 0ST20ZZ Resection of Lumbar Vertebral Disc, Open Approach (ICD-10-PCS; principal; 2023-08-13 07:30)
PROC: 01NB0ZZ Release Lumbar Nerve, Open Approach (ICD-10-PCS; principal; 2023-08-13 07:30)
DX: A41.01 Sepsis due to Methicillin susceptible Staphylococcus aureus (principal); G06.2 Extradural and subdural abscess, unspecified; E87.1 Hypo-osmolality and hyponatremia; M46.36 Infection of intervertebral disc (pyogenic), lumbar region; Z68.41 Body mass index [BMI] 40.0-44.9, adult; Z16.29 Resistance to other single specified antibiotic; Z16.24 Resistance to multiple antibiotics; M46.56 Other infective spondylopathies, lumbar region; E88.09 Other disorders of plasma-protein metabolism, not elsewhere classified; K76.0 Fatty (change of) liver, not elsewhere classified; E66.01 Morbid (severe) obesity due to excess calories; E11.65 Type 2 diabetes mellitus with hyperglycemia; M45.9 Ankylosing spondylitis of unspecified sites in spine; E03.9 Hypothyroidism, unspecified; I10 Essential (primary) hypertension; M43.16 Spondylolisthesis, lumbar region; M48.062 Spinal stenosis, lumbar region with neurogenic claudication; M51.16 Intervertebral disc disorders with radiculopathy, lumbar region; M47.26 Other spondylosis with radiculopathy, lumbar region; K59.00 Constipation, unspecified; E78.5 Hyperlipidemia, unspecified; N40.0 Benign prostatic hyperplasia without lower urinary tract symptoms; Z79.1 Long term (current) use of non-steroidal anti-inflammatories (NSAID); Z79.890 Hormone replacement therapy; Z79.85 Long-term (current) use of injectable non-insulin antidiabetic drugs; Z79.891 Long term (current) use of opiate analgesic; Z79.899 Other long term (current) drug therapy; Z71.3 Dietary counseling and surveillance; Z88.8 Allergy status to other drugs, medicaments and biological substances; Z88.6 Allergy status to analgesic agent
CPT/HCPCS: 36415; 36573; 71045; 72100; 72114; 72131; 72132; 72158; 74177; 80048; 80053; 81001; 83605; 83735; 85025; 85027; 85652; 86140; 86850; 86900; 86901; 87040; 87070; 87075; 87077; 87186; 87205; 88304; 88305; 93306; 96361; 96374; 96375; 96376; 99285

== ENCOUNTER → 2023-09-30 | Outpatient (CLI) | payer BC ==
--- NOTE | 2023-09-30 11:55 | XR ---
EXAMINATION TYPE: XR lumbar spine 3V DATE OF EXAM: 09/30/2023 Comparison: 08/11/2023 Clinical History: 53-year-old male M54.5 Lumbar pain Findings: L3-L5 posterior and interbody fusion. Corresponding laminectomies and bone graft material relating to lateral osseous fusion changes incompletely consolidated. Fixed grade 1 anterolisthesis L4-L5. Verte bral body heights are preserved. 5 lumbar type vertebral bodies. Impression: Status post L3-L5 posterior and interbody fusion with corresponding laminectomies. Incompletely conso lidated bone graft material relating to lateral osseous fusion. Fixed grade 1 anterolisthesis L4-L5.
== END | disposition home or self-care (01) ==
LOC: RADXRMAIN 10:12
PROVIDERS: ATTEND Orthopaedic Surgery
DX: M43.16 Spondylolisthesis, lumbar region (principal)
CPT/HCPCS: 72100